=== PATIENT | female | born 1935 | race African-American/Black ===

== ENCOUNTER 2019-06-03 07:32 | Outpatient (RCR) | payer MEDICARE, MEDICAID, SELFPAY ==
--- NOTE | 2019-03-29 08:19 | PCWOUND ---
Patient was seen by Dr. Kc in his office on 03/28/19. measured wound to the right breast. Measurements are 1.5cm in length by 1.0cm in width by 7.0cm
[2019-04-02 14:17] VITALS: BMI 43.4
--- NOTE | 2019-04-22 10:28 | WPDWOUNDNOTE ---
Wound Care Note Date/Time: 04/22/19 10:28 History: Lauren returns to the wound clinic for a recheck after recent right breast lumpectomy with biopsy of 3 non-sentinel lymph nodes and excision of a pedunculated skin lesion right axilla performed on 03/04/19 with pathology showing well-differentiated invasive ductal carcinoma. This is estrogen positive her 2-Nue neg. This was discussed with patient last month and she has recently seen her medical oncologist last week to further discuss more treatment for the carcinoma. For now they are going to hold off on any chemo or radiation which I agree with. The patient developed a hematoma in the space from her lumpectomy following surgery. This opened and drained, therefore we are treating her in the wound clinic. Wound history: Post-operatively patient developed a hematoma in the Rt. axillary area. patient had been on Keflex 500 mg TID, patient reported she is taking this as prescribed. Now has been off of this for some time. Patient reports that she is still sore but not having much pain. Reports her daughter has been packing the wound daily for her, and she reports she is still getting a bloody drainage from incision. But this is significantly less than a week ago. Patient reports she does feel like this is healing because it is not as sore as it was. Wound width: 1.5 cm Wound length: 2 cm Wound depth: 4.5 cm angle toward the Rt. axilla Drainage: Serosanguineous Surrounding tissue appearance: The scar from her previous lumpectomy is well healed in the general vicinity. The skin surrounding the opening to this wound is normal. Tunneling: Yes toward the axilla as noted above. Percentage granulation tissue: 100% Treatment/Procedures: Continue to be packed with Aquacel rope. Will plan to see the patient here in the Wound Clinic in about 4 weeks. Wound clinic nurses will check her in 2 weeks and decide about my next visit. Hopefully will see her when it is just about healed. Dressings: Aquacell rope plus gauze with minimal taped and let her bra hold it in place.
--- NOTE | 2019-05-13 16:38 | WPDWOUNDNOTE ---
Wound Care Note Date/Time: Late entry for 04/02/19 12:38 Late entry for 04/02/19 12:38 History: Lauren returns to the wound clinic for a recheck after recent right breast lumpectomy with biopsy of 3 non-sentinel lymph nodes and excision of a pedunculated skin lesion right axilla performed on 03/04/19 with pathology showing well-differentiated invasive ductal carcinoma. This is estrogen positive Her 2-Nue neg. This was discussed with patient last month and she has recently seen her medical oncologist to further discuss more treatment for the carcinoma. For now they are going to hold off on any chemo or radiation which I agree with as she has an open wound. The patient developed a hematoma in the space from her lumpectomy following surgery. This opened and drained, therefore we are planning on treating her in the wound clinic,possibly with a wound vac. Wound history: Patient had a lumpectomy in mid February. Approximately 1 week after her surgery she had increased swelling and then some bloody drainage from 1 small spot along her the incision of her right-sided lumpectomy which is near the axilla. Subsequently she was seen in the office on 03/28/2019 and a significant amount of old clot and blood was removed from this through approximate 1 cm opening in the incision. I then packed this in the office and placed on antibiotics to try to avoid infected hematoma. She presents at the wound clinic today for consideration of continued dressing changes and possibly a use of a wound VAC to control the drainage and to shrink the wound. Wound approximation: No Wound width: 1.8 cm Wound length: 1.5 cm Wound depth: 7 cm in one direction 4.8 cm in the other direction Drainage: Old blood and clot Surrounding tissue appearance: normal-appearing external skin of the breast Tunneling: yes, into the cavity of the previous lumpectomy. Percentage granulation tissue: Not applicable Treatment/Procedures: Marisela discussed with the patient placement of a wound VAC. Dressings: Patient initally had a wound VAC present but came back to the wound clinic complaining of the equipment, the tubing, and the external pump that needed to be carried. She did not want to continue therapy. Therefore the area was redressed with silver rope and gauze. This will be changed periodically at home by her daughter. She will follow up in the clinic in 1 week for a wound check and then I will see her at the end of the month. The wound care nurses will let me know if it appears that there is any infection or other problem.
== END 2019-06-03 10:15 | disposition home or self-care (01) ==
LOC: ANHWOC 07:32
PROVIDERS: PCP Family Medicine Adolescent Medicine; Visit Provider Surgery
DX: S20.01XD Contusion of right breast, subsequent encounter (principal)
CPT/HCPCS: 97606; 99211; 99212; 99213; A9270; G0463

== ENCOUNTER 2019-11-07 10:26 | Outpatient (CLI) | payer MEDICARE, MEDICAID, SELFPAY ==
[2019-11-07 11:15] LABS: Basophils Percent Auto 0.5 % (0.2-1.2); Eosinophils Absolute Auto 0.2 K/mm3 (0-0.3); Eosinophils Percent Auto 3.3 % (0-4.4); Hematocrit 44.2 % (37.0-47.0); Hemoglobin 14.4 g/dL (12.0-15.0); Immature Granulocyte Absolute 0.02 K/mm3 (0.00-0.031); Immature Granulocyte Percent A 0.3 % (0-0.5); Lymphocytes Absolute Auto 2.45 K/mm3 (0.9-3.2); Mean Corpuscular HGB Conc 32.6 g/dl (32-36); Mean Corpuscular Hemoglobin 28.5 pg (26-34); Mean Corpuscular Volume 87.5 fl (80-100); Mean Platelet Volume 11.1 fl (7.4-10.4); Monocytes Absolute Auto 0.5 K/mm3 (0.1-0.6); Monocytes Percent Auto 7.7 % (2.6-8.5); Neutrophils Absolute Auto 2.7 K/mm3 (1.3-6.7); Neutrophils Percent Auto 46.2 % (45.5-73.1); Platelet Count Result 227 k/mm3 (150-375); Red Blood Count 5.05 M/mm3 (4.2-5.4); Red Cell Distribution Width 14.6 % (11.5-14.5); White Blood Count 5.8 K/mm3 (4.5-10.0)
[2019-11-07 11:27] LABS: Alanine Aminotransferase 13 U/L (4-35); Albumin Level 4.3 g/dL (3.5-5.1); Alkaline Phosphatase 71 U/L (38-126); Aspartate Amino Transferase 21 U/L (14-36); Bilirubin,Total 0.4 mg/dL (0.2-1.3); Blood Urea Nitrogen 16 mg/dL (7-17); Calcium 9.5 mg/dL (8.4-10.2); Carbon Dioxide 29 mmol/L (22-30); Chloride 104 mmol/L (98-107); Estimated Glomerular Filt Rate > 60; Glucose 110 mg/dL (65-105); Sodium 139 mmol/L (137-145)
[2019-11-10 21:19] LABS: CRP, High Sensitivity 3.7 mg/L (***)
[2019-11-11 20:16] LABS: CA 15-3 11 U/mL (<32)
== END 2019-11-07 10:27 | disposition home or self-care (01) ==
PROVIDERS: PCP Family Medicine Adolescent Medicine; Visit Provider Internal Medicine Medical Oncology
DX: C50.411 Malignant neoplasm of upper-outer quadrant of right female breast (principal); Z17.0 Estrogen receptor positive status [ER+]
CPT/HCPCS: 36415; 80053; 85025; 86141; 86300

== ENCOUNTER 2020-02-05 10:59 | Outpatient (CLI) | payer MEDICARE, MEDICAID, SELFPAY ==
[2020-02-05 11:49] LABS: Basophils Absolute Auto 0.1 K/mm3 (0.0-0.1); Basophils Percent Auto 0.7 % (0.2-1.2); Eosinophils Absolute Auto 0.2 K/mm3 (0-0.3); Eosinophils Percent Auto 2.9 % (0-4.4); Hematocrit 44.1 % (37.0-47.0); Hemoglobin 14.3 g/dL (12.0-15.0); Immature Granulocyte Absolute 0.02 K/mm3 (0.00-0.031); Immature Granulocyte Percent A 0.3 % (0-0.5); Lymphocytes Absolute Auto 3.52 K/mm3 (0.9-3.2); Lymphocytes Percent Auto 50.6 % (18.3-44.2); Mean Corpuscular HGB Conc 32.4 g/dl (32-36); Mean Corpuscular Hemoglobin 28.5 pg (26-34); Mean Platelet Volume 11.5 fl (7.4-10.4); Monocytes Absolute Auto 0.5 K/mm3 (0.1-0.6); Monocytes Percent Auto 7.6 % (2.6-8.5); Neutrophils Absolute Auto 2.6 K/mm3 (1.3-6.7); Neutrophils Percent Auto 37.9 % (45.5-73.1); Platelet Count Result 238 k/mm3 (150-375); Red Blood Count 5.01 M/mm3 (4.2-5.4); Red Cell Distribution Width 15.2 % (11.5-14.5)
[2020-02-05 12:01] LABS: Alanine Aminotransferase 11 U/L (4-35); Albumin Level 4.2 g/dL (3.5-5.1); Alkaline Phosphatase 70 U/L (38-126); Anion Gap 6 mmol/L (8-16); Aspartate Amino Transferase 22 U/L (14-36); Bilirubin,Total 0.3 mg/dL (0.2-1.3); Blood Urea Nitrogen 17 mg/dL (7-17); Calcium 9.4 mg/dL (8.4-10.2); Carbon Dioxide 31 mmol/L (22-30); Chloride 105 mmol/L (98-107); Estimated Glomerular Filt Rate > 60; Glucose 104 mg/dL (65-105); Sodium 142 mmol/L (137-145)
[2020-02-05 12:59] LABS: Platelet Estimate Adequate (Adequate); Stomatocytes 1+ (NORMAL); Target Cells 1+ (NORMAL)
== END 2020-02-05 11:00 | disposition home or self-care (01) ==
PROVIDERS: PCP Family Medicine Adolescent Medicine; Visit Provider Internal Medicine Medical Oncology
DX: C50.411 Malignant neoplasm of upper-outer quadrant of right female breast (principal); Z17.0 Estrogen receptor positive status [ER+]
CPT/HCPCS: 36415; 80053; 85025

== ENCOUNTER → 2020-03-26 10:52 | Outpatient (CLI) | payer MEDICARE, MEDICAID, SELFPAY ==
--- NOTE | ~2020-03-26 | XR_ITS ---
EXAMINATION: XR heel RT min 2V, XR foot RT min 3V EXAM DATE: 03/26/2020 11:13 INDICATION: Right heel pain . TECHNIQUE: Right foot dorsoplantar, lateral and oblique projections obtained and reviewed. 2 orthog onal projections right heel. There are no prior studies for comparison. FINDINGS: Right metatarsal bones unremarkable. Small posterior and inferior calcaneal spurs. No evid ence of calcaneal stress fracture. There are no acute fractures or dislocations identified. There is no subcutaneous gas. The soft tissue is unremarkable. There are no radiopaque foreign bodies. IMPRESSION: Small right calcaneal spurs. Reviewed, dictated and finalized at location A. NETWORK TECHNICIAN IMPRESSION: Small right calcaneal spurs.
== END ==
PROVIDERS: PCP Family Medicine Adolescent Medicine; Visit Provider Physician Assistant
DX: M77.31 Calcaneal spur, right foot (principal)
CPT/HCPCS: 73630; 73650

== ENCOUNTER 2020-05-08 14:15 | Outpatient (CLI) | payer MEDICARE, MEDICAID, SELFPAY ==
[2020-05-08 15:01] LABS: Hematocrit 43.3 % (37.0-47.0); Hemoglobin 14.1 g/dL (12.0-15.0); Mean Corpuscular HGB Conc 32.6 g/dl (32-36); Mean Corpuscular Hemoglobin 29.1 pg (26-34); Mean Corpuscular Volume 89.3 fl (80-100); Mean Platelet Volume 10.9 fl (7.4-10.4); Platelet Count Result 213 k/mm3 (150-375); Red Blood Count 4.85 M/mm3 (4.2-5.4); Red Cell Distribution Width 15.2 % (11.5-14.5); White Blood Count 7.2 K/mm3 (4.5-10.0)
[2020-05-08 15:18] LABS: Alanine Aminotransferase 16 U/L (4-35); Alkaline Phosphatase 71 U/L (38-126); Anion Gap 3 mmol/L (8-16); Aspartate Amino Transferase 26 U/L (14-36); Bilirubin,Total 0.4 mg/dL (0.2-1.3); Blood Urea Nitrogen 25 mg/dL (7-17); Calcium 9.2 mg/dL (8.4-10.2); Carbon Dioxide 29 mmol/L (22-30); Chloride 108 mmol/L (98-107); Estimated Glomerular Filt Rate 52; Glucose 98 mg/dL (65-105); Sodium 140 mmol/L (137-145)
[2020-05-08 15:38] LABS: Eosinophils Absolute Manual 0.21 K/mm3 (0.02-0.5); Eosinophils Percent Manual 3 % (0-4); Lymphocytes Absolute Manual 4.24 K/mm3 (1.1-4.5); Monocytes Absolute Manual 0.21 K/mm3 (0.1-0.90); Monocytes Percent Manual 3 % (3-9); Neutrophils Percent Manual 35 % (46-73); Total Cells Counted 100
[2020-05-08 15:39] LABS: Anisocytosis 2+ (NORMAL); Platelet Estimate Adequate (Adequate)
[2020-05-08 15:40] LABS: Atypical Lymphocytes Present
== END 2020-05-08 14:16 | disposition home or self-care (01) ==
PROVIDERS: PCP Family Medicine Adolescent Medicine; Visit Provider Internal Medicine Medical Oncology
DX: C50.411 Malignant neoplasm of upper-outer quadrant of right female breast (principal); Z17.0 Estrogen receptor positive status [ER+]
CPT/HCPCS: 36415; 80053; 85025

== ENCOUNTER 2020-08-07 13:09 | Outpatient (CLI) | payer MEDICARE, MEDICAID, SELFPAY ==
[2020-08-07 13:43] LABS: Hematocrit 41.7 % (37.0-47.0); Hemoglobin 13.6 g/dL (12.0-15.0); Mean Corpuscular HGB Conc 32.6 g/dl (32-36); Mean Corpuscular Hemoglobin 28.6 pg (26-34); Mean Corpuscular Volume 87.8 fl (80-100); Mean Platelet Volume 11.4 fl (7.4-10.4); Platelet Count Result 215 k/mm3 (150-375); Red Blood Count 4.75 M/mm3 (4.2-5.4); Red Cell Distribution Width 15.2 % (11.5-14.5)
[2020-08-07 13:57] LABS: Alanine Aminotransferase 12 U/L (4-35); Albumin Level 4.3 g/dL (3.5-5.1); Alkaline Phosphatase 72 U/L (38-126); Anion Gap 6 mmol/L (8-16); Aspartate Amino Transferase 32 U/L (14-36); Bilirubin,Total 0.4 mg/dL (0.2-1.3); Blood Urea Nitrogen 19 mg/dL (7-17); Calcium 9.2 mg/dL (8.4-10.2); Carbon Dioxide 30 mmol/L (22-30); Chloride 106 mmol/L (98-107); Estimated Glomerular Filt Rate 57; Glucose 99 mg/dL (65-105); Sodium 142 mmol/L (137-145)
[2020-08-07 14:27] LABS: Eosinophils Absolute Manual 0.12 K/mm3 (0.02-0.5); Eosinophils Percent Manual 2 % (0-4); Hypochromasia 2+ (NORMAL); Lymphocytes Absolute Manual 2.88 K/mm3 (1.1-4.5); Monocytes Absolute Manual 0.24 K/mm3 (0.1-0.90); Monocytes Percent Manual 4 % (3-9); Neutrophils Percent Manual 46 % (46-73); Platelet Estimate Adequate (Adequate); Total Cells Counted 100
== END 2020-08-07 13:10 | disposition home or self-care (01) ==
LOC: ANHLAB 13:13
PROVIDERS: PCP Family Medicine Adolescent Medicine; Visit Provider Internal Medicine Medical Oncology
DX: C50.411 Malignant neoplasm of upper-outer quadrant of right female breast (principal); Z17.0 Estrogen receptor positive status [ER+]
CPT/HCPCS: 36415; 80053; 85025

== ENCOUNTER 2020-12-15 10:00 | Outpatient (CLI) | payer MEDICARE, MEDICAID, SELFPAY ==
[2020-12-15 11:08] LABS: Hematocrit 43.5 % (37.0-47.0); Hemoglobin 13.7 g/dL (12.0-15.0); Mean Corpuscular HGB Conc 31.5 g/dl (32-36); Mean Corpuscular Hemoglobin 29.1 pg (26-34); Mean Corpuscular Volume 92.6 fl (80-100); Mean Platelet Volume 11.4 fl (7.4-10.4); Platelet Count Result 185 k/mm3 (150-375); Red Cell Distribution Width 15.2 % (11.5-14.5); White Blood Count 7.4 K/mm3 (4.5-10.0)
[2020-12-15 11:22] LABS: Alanine Aminotransferase 14 U/L (4-35); Albumin Level 4.2 g/dL (3.5-5.1); Alkaline Phosphatase 82 U/L (38-126); Anion Gap 11 mmol/L (8-16); Aspartate Amino Transferase 26 U/L (14-36); Bilirubin,Total 0.3 mg/dL (0.2-1.3); Blood Urea Nitrogen 25 mg/dL (7-17); Calcium 8.9 mg/dL (8.4-10.2); Carbon Dioxide 21 mmol/L (22-30); Chloride 104 mmol/L (98-107); Estimated Glomerular Filt Rate 57; Glucose 94 mg/dL (65-110); Potassium 4.2 mmol/L (3.4-5.0); Sodium 136 mmol/L (137-145)
[2020-12-15 11:43] LABS: Eosinophils Absolute Manual 0.07 K/mm3 (0.02-0.5); Eosinophils Percent Manual 1 % (0-4); Lymphocytes Absolute Manual 3.62 K/mm3 (1.1-4.5); Neutrophils Percent Manual 50 % (46-73); Total Cells Counted 100
[2020-12-15 11:44] LABS: Platelet Estimate Adequate (Adequate)
== END 2020-12-15 10:01 | disposition home or self-care (01) ==
PROVIDERS: PCP Family Medicine Adolescent Medicine; Visit Provider Internal Medicine Medical Oncology
DX: C50.411 Malignant neoplasm of upper-outer quadrant of right female breast (principal); Z17.0 Estrogen receptor positive status [ER+]
CPT/HCPCS: 36415; 80053; 85025

== ENCOUNTER 2021-03-29 14:04 | Outpatient (CLI) | payer MEDICARE, MEDICAID, SELFPAY ==
[2021-03-29 14:30] LABS: Basophils Absolute Auto 0.1 K/mm3 (0.0-0.1); Basophils Percent Auto 0.7 % (0.2-1.2); Eosinophils Absolute Auto 0.3 K/mm3 (0-0.3); Eosinophils Percent Auto 3.6 % (0-4.4); Hematocrit 41.5 % (37.0-47.0); Hemoglobin 13.6 g/dL (12.0-15.0); Immature Granulocyte Absolute 0.03 K/mm3 (0.00-0.031); Immature Granulocyte Percent A 0.4 % (0-0.5); Lymphocytes Absolute Auto 3.21 K/mm3 (0.9-3.2); Lymphocytes Percent Auto 38.7 % (18.3-44.2); Mean Corpuscular HGB Conc 32.8 g/dl (32-36); Mean Corpuscular Hemoglobin 29.4 pg (26-34); Mean Corpuscular Volume 89.6 fl (80-100); Monocytes Absolute Auto 0.8 K/mm3 (0.1-0.6); Neutrophils Absolute Auto 3.9 K/mm3 (1.3-6.7); Neutrophils Percent Auto 47.6 % (45.5-73.1); Platelet Count Result 206 k/mm3 (150-375); Red Blood Count 4.63 M/mm3 (4.2-5.4); White Blood Count 8.3 K/mm3 (4.5-10.0)
[2021-03-29 14:43] LABS: Alanine Aminotransferase 15 U/L (4-35); Albumin Level 4.2 g/dL (3.5-5.1); Alkaline Phosphatase 88 U/L (38-126); Anion Gap 8 mmol/L (8-16); Aspartate Amino Transferase 25 U/L (14-36); Bilirubin,Total 0.4 mg/dL (0.2-1.3); Blood Urea Nitrogen 32 mg/dL (7-17); Carbon Dioxide 28 mmol/L (22-30); Chloride 105 mmol/L (98-107); Estimated Glomerular Filt Rate 40; Glucose 122 mg/dL (65-110); Potassium 3.9 mmol/L (3.4-5.0); Sodium 141 mmol/L (137-145)
== END 2021-03-29 14:05 | disposition home or self-care (01) ==
PROVIDERS: PCP Family Medicine Adolescent Medicine; Visit Provider Internal Medicine Medical Oncology
DX: C50.411 Malignant neoplasm of upper-outer quadrant of right female breast (principal); Z17.0 Estrogen receptor positive status [ER+]
CPT/HCPCS: 36415; 80053; 85025

== ENCOUNTER 2021-08-25 14:07 | Outpatient (CLI) | payer MEDICARE, MEDICAID, SELFPAY ==
[2021-08-25 14:36] LABS: Hematocrit 43.2 % (37.0-47.0); Hemoglobin 13.8 g/dL (12.0-15.0); Mean Corpuscular HGB Conc 31.9 g/dl (32-36); Mean Corpuscular Hemoglobin 28.6 pg (26-34); Mean Corpuscular Volume 89.6 fl (80-100); Mean Platelet Volume 10.8 fl (7.4-10.4); Platelet Count Result 268 k/mm3 (150-375); Red Blood Count 4.82 M/mm3 (4.2-5.4); Red Cell Distribution Width 14.6 % (11.5-14.5); White Blood Count 7.3 K/mm3 (4.5-10.0)
[2021-08-25 14:46] LABS: Alanine Aminotransferase 12 U/L (4-35); Albumin Level 4.1 g/dL (3.5-5.1); Alkaline Phosphatase 72 U/L (38-126); Anion Gap 3 mmol/L (8-16); Aspartate Amino Transferase 23 U/L (14-36); Bilirubin,Total 0.2 mg/dL (0.2-1.3); Blood Urea Nitrogen 32 mg/dL (7-17); Calcium 9.4 mg/dL (8.4-10.2); Carbon Dioxide 33 mmol/L (22-30); Chloride 103 mmol/L (98-107); Estimated Glomerular Filt Rate 47; Glucose 98 mg/dL (65-110); Potassium 3.7 mmol/L (3.4-5.0); Sodium 139 mmol/L (137-145)
[2021-08-25 15:13] LABS: Eosinophils Absolute Manual 0.14 K/mm3 (0.02-0.5); Eosinophils Percent Manual 2 % (0-4); Lymphocytes Absolute Manual 3.65 K/mm3 (1.1-4.5); Monocytes Absolute Manual 0.21 K/mm3 (0.1-0.90); Monocytes Percent Manual 3 % (3-9); Neutrophils Percent Manual 45 % (46-73); Total Cells Counted 100
[2021-08-25 15:14] LABS: Hypochromasia 1+ (NORMAL); Platelet Estimate Adequate (Adequate)
== END 2021-08-25 14:08 | disposition home or self-care (01) ==
LOC: ANHLAB 14:08
PROVIDERS: PCP Family Medicine Adolescent Medicine; Visit Provider Internal Medicine Medical Oncology
DX: C50.411 Malignant neoplasm of upper-outer quadrant of right female breast (principal); Z17.0 Estrogen receptor positive status [ER+]
CPT/HCPCS: 36415; 80053; 85025

== ENCOUNTER 2021-12-14 12:45 | Outpatient (CLI) | payer MEDICARE, MEDICAID, SELFPAY ==
[2021-12-14 13:19] LABS: Basophils Percent Auto 0.7 % (0.2-1.2); Eosinophils Absolute Auto 0.2 K/mm3 (0-0.3); Eosinophils Percent Auto 3.3 % (0-4.4); Hematocrit 41.1 % (37.0-47.0); Hemoglobin 13.4 g/dL (12.0-15.0); Immature Granulocyte Absolute 0.03 K/mm3 (0.00-0.031); Immature Granulocyte Percent A 0.5 % (0-0.5); Lymphocytes Absolute Auto 3.07 K/mm3 (0.9-3.2); Lymphocytes Percent Auto 55.5 % (18.3-44.2); Mean Corpuscular HGB Conc 32.6 g/dl (32-36); Mean Corpuscular Hemoglobin 28.6 pg (26-34); Mean Corpuscular Volume 87.8 fl (80-100); Mean Platelet Volume 10.6 fl (7.4-10.4); Monocytes Absolute Auto 0.5 K/mm3 (0.1-0.6); Monocytes Percent Auto 8.3 % (2.6-8.5); Neutrophils Absolute Auto 1.8 K/mm3 (1.3-6.7); Neutrophils Percent Auto 31.7 % (45.5-73.1); Platelet Count Result 237 k/mm3 (150-375); Red Blood Count 4.68 M/mm3 (4.2-5.4); Red Cell Distribution Width 14.6 % (11.5-14.5); White Blood Count 5.5 K/mm3 (4.5-10.0)
[2021-12-14 13:36] LABS: Alanine Aminotransferase 15 U/L (6-35); Albumin Level 4.3 g/dL (3.5-5.1); Alkaline Phosphatase 62 U/L (38-126); Anion Gap 8 mmol/L (8-16); Aspartate Amino Transferase 25 U/L (14-36); Bilirubin,Total 0.4 mg/dL (0.2-1.3); Blood Urea Nitrogen 25 mg/dL (7-17); Calcium 8.9 mg/dL (8.4-10.2); Carbon Dioxide 29 mmol/L (22-30); Chloride 101 mmol/L (98-107); Estimated Glomerular Filt Rate 47; Glucose 95 mg/dL (65-110); Potassium 3.6 mmol/L (3.4-5.0); Sodium 138 mmol/L (137-145)
[2021-12-14 14:53] LABS: Atypical Lymphocytes Present; Platelet Estimate Adequate (Adequate)
== END 2021-12-14 12:46 | disposition home or self-care (01) ==
PROVIDERS: PCP Family Medicine Adolescent Medicine; Visit Provider Internal Medicine Medical Oncology
DX: C50.411 Malignant neoplasm of upper-outer quadrant of right female breast (principal); Z17.0 Estrogen receptor positive status [ER+]
CPT/HCPCS: 36415; 80053; 85025

== ENCOUNTER 2022-03-29 13:55 | Outpatient (CLI) | payer MEDICARE, MEDICAID, SELFPAY ==
[2022-03-29 14:43] LABS: Basophils Percent Auto 0.6 % (0.2-1.2); Eosinophils Absolute Auto 0.2 K/mm3 (0-0.3); Eosinophils Percent Auto 2.2 % (0-4.4); Hematocrit 36.8 % (37.0-47.0); Hemoglobin 12.2 g/dL (12.0-15.0); Immature Granulocyte Absolute 0.03 K/mm3 (0.00-0.031); Immature Granulocyte Percent A 0.4 % (0-0.5); Lymphocytes Absolute Auto 3.08 K/mm3 (0.9-3.2); Lymphocytes Percent Auto 45.5 % (18.3-44.2); Mean Corpuscular HGB Conc 33.2 g/dl (32-36); Mean Corpuscular Hemoglobin 28.9 pg (26-34); Mean Corpuscular Volume 87.2 fl (80-100); Monocytes Absolute Auto 0.6 K/mm3 (0.1-0.6); Monocytes Percent Auto 8.1 % (2.6-8.5); Neutrophils Absolute Auto 2.9 K/mm3 (1.3-6.7); Neutrophils Percent Auto 43.2 % (45.5-73.1); Platelet Count Result 219 k/mm3 (150-375); Red Blood Count 4.22 M/mm3 (4.2-5.4); Red Cell Distribution Width 15.1 % (11.5-14.5); White Blood Count 6.8 K/mm3 (4.5-10.0)
[2022-03-29 14:49] LABS: Alanine Aminotransferase 13 U/L (6-35); Albumin Level 4.2 g/dL (3.5-5.1); Alkaline Phosphatase 63 U/L (38-126); Anion Gap 5 mmol/L (8-16); Aspartate Amino Transferase 21 U/L (14-36); Bilirubin,Total 0.3 mg/dL (0.2-1.3); Blood Urea Nitrogen 22 mg/dL (7-17); Calcium 8.6 mg/dL (8.4-10.2); Carbon Dioxide 26 mmol/L (22-30); Chloride 112 mmol/L (98-107); Estimated Glomerular Filt Rate 47; Glucose 107 mg/dL (65-110); Potassium 3.9 mmol/L (3.4-5.0); Sodium 143 mmol/L (137-145)
[2022-03-29 14:57] LABS: Platelet Estimate Adequate (Adequate)
[2022-03-29 14:58] LABS: Atypical Lymphocytes Present; Schistocytes None Seen (NORMAL)
== END 2022-03-29 13:56 | disposition home or self-care (01) ==
LOC: ANHLAB 13:58
PROVIDERS: PCP Family Medicine Adolescent Medicine; Visit Provider Internal Medicine Medical Oncology
DX: C50.411 Malignant neoplasm of upper-outer quadrant of right female breast (principal); Z17.0 Estrogen receptor positive status [ER+]
CPT/HCPCS: 36415; 80053; 85025

== ENCOUNTER 2022-06-30 11:23 | Outpatient (CLI) | payer MEDICARE, MEDICAID, SELFPAY ==
[2022-06-30 12:38] LABS: Basophils Percent Auto 0.7 % (0.2-1.2); Eosinophils Absolute Auto 0.2 K/mm3 (0-0.3); Hematocrit 39.6 % (37.0-47.0); Immature Granulocyte Absolute 0.01 K/mm3 (0.00-0.031); Immature Granulocyte Percent A 0.2 % (0-0.5); Lymphocytes Absolute Auto 2.85 K/mm3 (0.9-3.2); Lymphocytes Percent Auto 49.6 % (18.3-44.2); Mean Corpuscular HGB Conc 32.8 g/dl (32-36); Mean Corpuscular Hemoglobin 29.5 pg (26-34); Mean Corpuscular Volume 89.8 fl (80-100); Mean Platelet Volume 11.6 fl (7.4-10.4); Monocytes Absolute Auto 0.5 K/mm3 (0.1-0.6); Monocytes Percent Auto 9.2 % (2.6-8.5); Neutrophils Absolute Auto 2.2 K/mm3 (1.3-6.7); Neutrophils Percent Auto 37.3 % (45.5-73.1); Platelet Count Result 204 k/mm3 (150-375); Red Blood Count 4.41 M/mm3 (4.2-5.4); Red Cell Distribution Width 14.6 % (11.5-14.5); White Blood Count 5.8 K/mm3 (4.5-10.0)
[2022-06-30 13:00] LABS: Alanine Aminotransferase 14 U/L (6-35); Albumin Level 4.4 g/dL (3.5-5.1); Alkaline Phosphatase 68 U/L (38-126); Anion Gap 7 mmol/L (8-16); Aspartate Amino Transferase 27 U/L (14-36); Bilirubin,Total 0.5 mg/dL (0.2-1.3); Blood Urea Nitrogen 24 mg/dL (7-17); Calcium 9.5 mg/dL (8.4-10.2); Carbon Dioxide 27 mmol/L (22-30); Chloride 104 mmol/L (98-107); Estimated Glomerular Filt Rate 47; Glucose 94 mg/dL (65-110); Potassium 3.9 mmol/L (3.4-5.0); Sodium 138 mmol/L (137-145)
[2022-06-30 13:44] LABS: Platelet Estimate Adequate (Adequate)
[2022-06-30 13:45] LABS: Schistocytes None Seen (NORMAL)
== END 2022-06-30 11:24 | disposition home or self-care (01) ==
PROVIDERS: PCP Family Medicine Adolescent Medicine; Visit Provider Internal Medicine Medical Oncology
DX: C50.411 Malignant neoplasm of upper-outer quadrant of right female breast (principal); Z17.0 Estrogen receptor positive status [ER+]
CPT/HCPCS: 36415; 80053; 85025

== ENCOUNTER 2022-11-30 14:12 | Outpatient (CLI) | payer MEDICARE, MEDICAID, SELFPAY ==
[2022-11-30 15:13] LABS: Basophils Percent Auto 0.6 % (0.2-1.2); Eosinophils Absolute Auto 0.1 K/mm3 (0-0.3); Hematocrit 39.3 % (37.0-47.0); Hemoglobin 12.8 g/dL (12.0-15.0); Immature Granulocyte Absolute 0.02 K/mm3 (0.00-0.031); Immature Granulocyte Percent A 0.3 % (0-0.5); Lymphocytes Absolute Auto 3.13 K/mm3 (0.9-3.2); Mean Corpuscular HGB Conc 32.6 g/dl (32-36); Mean Corpuscular Hemoglobin 29.2 pg (26-34); Mean Corpuscular Volume 89.7 fl (80-100); Mean Platelet Volume 11.1 fl (7.4-10.4); Monocytes Absolute Auto 0.6 K/mm3 (0.1-0.6); Monocytes Percent Auto 8.2 % (2.6-8.5); Neutrophils Absolute Auto 3.1 K/mm3 (1.3-6.7); Neutrophils Percent Auto 43.9 % (45.5-73.1); Platelet Count Result 213 k/mm3 (150-375); Red Blood Count 4.38 M/mm3 (4.2-5.4); Red Cell Distribution Width 14.3 % (11.5-14.5)
[2022-11-30 15:15] LABS: Potassium 3.7 mmol/L (3.4-5.0)
[2022-11-30 15:17] LABS: Alanine Aminotransferase 15 U/L (6-35); Albumin Level 4.3 g/dL (3.5-5.1); Alkaline Phosphatase 57 U/L (38-126); Anion Gap 7 mmol/L (8-16); Aspartate Amino Transferase 22 U/L (14-36); Bilirubin,Total 0.3 mg/dL (0.2-1.3); Blood Urea Nitrogen 39 mg/dL (7-17); Calcium 9.3 mg/dL (8.4-10.2); Carbon Dioxide 27 mmol/L (22-30); Chloride 102 mmol/L (98-107); Estimated Glomerular Filt Rate 47; Glucose 90 mg/dL (65-110); Sodium 136 mmol/L (137-145)
== END 2022-11-30 14:13 | disposition home or self-care (01) ==
PROVIDERS: PCP Family Medicine Adolescent Medicine; Visit Provider Internal Medicine Medical Oncology
DX: C50.411 Malignant neoplasm of upper-outer quadrant of right female breast (principal); Z17.0 Estrogen receptor positive status [ER+]
CPT/HCPCS: 36415; 80053; 85025

== ENCOUNTER 2023-02-27 11:10 | Outpatient (CLI) | payer MEDICARE, MEDICAID, SELFPAY ==
[2023-02-27 11:49] LABS: Basophils Absolute Auto 0.1 K/mm3 (0.0-0.1); Basophils Percent Auto 0.8 % (0.2-1.2); Eosinophils Absolute Auto 0.1 K/mm3 (0-0.3); Hematocrit 40.5 % (37.0-47.0); Hemoglobin 13.1 g/dL (12.0-15.0); Immature Granulocyte Absolute 0.01 K/mm3 (0.00-0.031); Immature Granulocyte Percent A 0.2 % (0-0.5); Mean Corpuscular HGB Conc 32.3 g/dl (32-36); Mean Corpuscular Hemoglobin 28.7 pg (26-34); Mean Corpuscular Volume 88.8 fl (80-100); Mean Platelet Volume 11.3 fl (7.4-10.4); Monocytes Absolute Auto 0.5 K/mm3 (0.1-0.6); Monocytes Percent Auto 8.9 % (2.6-8.5); Neutrophils Absolute Auto 2.3 K/mm3 (1.3-6.7); Neutrophils Percent Auto 37.1 % (45.5-73.1); Platelet Count Result 241 k/mm3 (150-375); Red Blood Count 4.56 M/mm3 (4.2-5.4); Red Cell Distribution Width 14.5 % (11.5-14.5); White Blood Count 6.1 K/mm3 (4.5-10.0)
[2023-02-27 12:00] LABS: Alanine Aminotransferase 13 U/L (6-35); Albumin Level 4.3 g/dL (3.5-5.1); Alkaline Phosphatase 65 U/L (38-126); Anion Gap 6 mmol/L (8-16); Aspartate Amino Transferase 23 U/L (14-36); Bilirubin,Total 0.8 mg/dL (0.2-1.3); Blood Urea Nitrogen 28 mg/dL (7-17); Calcium 9.9 mg/dL (8.4-10.2); Carbon Dioxide 31 mmol/L (22-30); Chloride 102 mmol/L (98-107); Estimated Glomerular Filt Rate 47; Glucose 99 mg/dL (65-110); Potassium 3.7 mmol/L (3.4-5.0); Sodium 139 mmol/L (137-145)
[2023-02-27 12:32] LABS: Platelet Estimate Adequate (Adequate)
[2023-02-27 12:33] LABS: Anisocytosis 2+ (NORMAL); Atypical Lymphocytes Present; Schistocytes None Seen (NORMAL)
== END 2023-02-27 11:11 | disposition home or self-care (01) ==
PROVIDERS: PCP Family Medicine Adolescent Medicine; Visit Provider Internal Medicine Medical Oncology
DX: C50.411 Malignant neoplasm of upper-outer quadrant of right female breast (principal); Z17.0 Estrogen receptor positive status [ER+]
CPT/HCPCS: 36415; 80053; 85025

== ENCOUNTER 2023-05-30 12:12 | Outpatient (CLI) | payer MEDICARE, MEDICAID, SELFPAY ==
[2023-05-30 13:31] LABS: Basophils Absolute Auto 0.1 K/mm3 (0.0-0.1); Basophils Percent Auto 0.8 % (0.2-1.2); Eosinophils Absolute Auto 0.2 K/mm3 (0-0.3); Eosinophils Percent Auto 3.5 % (0-4.4); Hematocrit 39.1 % (37.0-47.0); Hemoglobin 12.7 g/dL (12.0-15.0); Immature Granulocyte Absolute 0.01 K/mm3 (0.00-0.031); Immature Granulocyte Percent A 0.2 % (0-0.5); Lymphocytes Absolute Auto 2.86 K/mm3 (0.9-3.2); Lymphocytes Percent Auto 47.5 % (18.3-44.2); Mean Corpuscular HGB Conc 32.5 g/dl (32-36); Mean Corpuscular Hemoglobin 28.6 pg (26-34); Mean Corpuscular Volume 88.1 fl (80-100); Mean Platelet Volume 11.6 fl (7.4-10.4); Monocytes Absolute Auto 0.5 K/mm3 (0.1-0.6); Monocytes Percent Auto 8.3 % (2.6-8.5); Neutrophils Absolute Auto 2.4 K/mm3 (1.3-6.7); Neutrophils Percent Auto 39.7 % (45.5-73.1); Platelet Count Result 239 k/mm3 (150-375); Red Blood Count 4.44 M/mm3 (4.2-5.4); Red Cell Distribution Width 14.6 % (11.5-14.5)
[2023-05-30 13:45] LABS: Alanine Aminotransferase 11 U/L (6-35); Albumin Level 4.5 g/dL (3.5-5.1); Alkaline Phosphatase 71 U/L (38-126); Anion Gap 7 mmol/L (8-16); Aspartate Amino Transferase 25 U/L (14-36); Bilirubin,Total 0.5 mg/dL (0.2-1.3); Blood Urea Nitrogen 28 mg/dL (7-17); Calcium 9.9 mg/dL (8.4-10.2); Carbon Dioxide 27 mmol/L (22-30); Chloride 106 mmol/L (98-107); Estimated Glomerular Filt Rate 32; Glucose 99 mg/dL (65-110); Potassium 4.1 mmol/L (3.4-5.0); Sodium 140 mmol/L (137-145)
== END 2023-05-30 12:13 | disposition home or self-care (01) ==
PROVIDERS: PCP Family Medicine Adolescent Medicine; Visit Provider Internal Medicine Medical Oncology
DX: C50.411 Malignant neoplasm of upper-outer quadrant of right female breast (principal); Z17.0 Estrogen receptor positive status [ER+]
CPT/HCPCS: 36415; 80053; 85025

== ENCOUNTER 2023-08-30 14:41 | Outpatient (CLI) | payer MEDICARE, MEDICAID, SELFPAY ==
[2023-08-30 15:03] LABS: Hematocrit 39.6 % (37.0-47.0); Hemoglobin 12.9 g/dL (12.0-15.0); Mean Corpuscular HGB Conc 32.6 g/dl (32-36); Mean Platelet Volume 10.7 fl (7.4-10.4); Platelet Count Result 227 k/mm3 (150-375); Red Blood Count 4.45 M/mm3 (4.2-5.4)
[2023-08-30 15:14] LABS: Alanine Aminotransferase 13 U/L (6-35); Albumin Level 4.5 g/dL (3.5-5.1); Alkaline Phosphatase 69 U/L (38-126); Anion Gap 7 mmol/L (4-12); Aspartate Amino Transferase 22 U/L (14-36); Bilirubin,Total 0.4 mg/dL (0.2-1.3); Blood Urea Nitrogen 33 mg/dL (7-17); Calcium 9.8 mg/dL (8.4-10.2); Carbon Dioxide 27 mmol/L (22-30); Chloride 105 mmol/L (98-107); Estimated Glomerular Filt Rate 37; Glucose 100 mg/dL (65-110); Potassium 3.8 mmol/L (3.4-5.0); Sodium 139 mmol/L (137-145)
[2023-08-30 17:47] LABS: Atypical Lymphocytes Present; Eosinophils Absolute Manual 0.28 K/mm3 (0.02-0.50); Eosinophils Percent Manual 4 % (0-4); Lymphocytes Absolute Manual 3.57 K/mm3 (1.1-4.5); Monocytes Absolute Manual 0.56 K/mm3 (0.1-0.90); Monocytes Percent Manual 8 % (3-9); Neutrophils Percent Manual 37 % (46-73); Platelet Estimate Adequate (Adequate); Total Cells Counted 100
[2023-08-30 17:48] LABS: Anisocytosis 2+; Schistocytes None Seen
== END 2023-08-30 14:42 | disposition home or self-care (01) ==
LOC: ANHLAB 14:43
PROVIDERS: PCP Family Medicine Adolescent Medicine; Visit Provider Internal Medicine Medical Oncology
DX: C50.411 Malignant neoplasm of upper-outer quadrant of right female breast (principal); Z17.0 Estrogen receptor positive status [ER+]
CPT/HCPCS: 36415; 80053; 85025

== ENCOUNTER 2023-11-28 11:44 | Outpatient (CLI) | payer MEDICARE, MEDICAID, SELFPAY ==
[2023-11-28 12:17] LABS: Basophils Percent Auto 0.5 % (0.2-1.2); Eosinophils Absolute Auto 0.1 K/mm3 (0-0.3); Hemoglobin 13.4 g/dL (12.0-15.0); Immature Granulocyte Absolute 0.02 K/mm3 (0.00-0.031); Immature Granulocyte Percent A 0.3 % (0-0.5); Lymphocytes Absolute Auto 2.56 K/mm3 (0.9-3.2); Lymphocytes Percent Auto 39.4 % (18.3-44.2); Mean Corpuscular HGB Conc 32.7 g/dl (32-36); Mean Corpuscular Hemoglobin 29.6 pg (26-34); Mean Corpuscular Volume 90.5 fl (80-100); Mean Platelet Volume 10.7 fl (7.4-10.4); Monocytes Absolute Auto 0.6 K/mm3 (0.1-0.6); Monocytes Percent Auto 9.4 % (2.6-8.5); Neutrophils Absolute Auto 3.1 K/mm3 (1.3-6.7); Neutrophils Percent Auto 48.4 % (45.5-73.1); Platelet Count Result 239 k/mm3 (150-375); Red Blood Count 4.53 M/mm3 (4.2-5.4); Red Cell Distribution Width 15.4 % (11.5-14.5); White Blood Count 6.5 K/mm3 (4.5-10.0)
[2023-11-28 12:31] LABS: Alanine Aminotransferase 10 U/L (6-35); Albumin Level 4.3 g/dL (3.5-5.1); Alkaline Phosphatase 63 U/L (38-126); Anion Gap 8 mmol/L (4-12); Aspartate Amino Transferase 20 U/L (14-36); Bilirubin,Total 0.5 mg/dL (0.2-1.3); Blood Urea Nitrogen 22 mg/dL (7-17); Calcium 9.2 mg/dL (8.4-10.2); Carbon Dioxide 28 mmol/L (22-30); Chloride 105 mmol/L (98-107); Estimated Glomerular Filt Rate 40; Glucose 96 mg/dL (65-110); Potassium 4.2 mmol/L (3.4-5.0); Sodium 141 mmol/L (137-145)
== END 2023-11-28 11:45 | disposition home or self-care (01) ==
LOC: ANHLAB 11:54
PROVIDERS: PCP Family Medicine Adolescent Medicine; Visit Provider Internal Medicine Medical Oncology
DX: C50.411 Malignant neoplasm of upper-outer quadrant of right female breast (principal); Z17.0 Estrogen receptor positive status [ER+]
CPT/HCPCS: 36415; 80053; 85025

== ENCOUNTER 2024-02-28 12:14 | Outpatient (CLI) | payer MEDICARE, MEDICAID, SELFPAY ==
[2024-02-28 13:13] LABS: Basophils Percent Auto 0.5 % (0.2-1.2); Eosinophils Absolute Auto 0.1 K/mm3 (0-0.3); Eosinophils Percent Auto 1.6 % (0-4.4); Hematocrit 40.7 % (37.0-47.0); Hemoglobin 13.3 g/dL (12.0-15.0); Immature Granulocyte Absolute 0.02 K/mm3 (0.00-0.031); Immature Granulocyte Percent A 0.2 % (0-0.5); Lymphocytes Absolute Auto 1.98 K/mm3 (0.9-3.2); Lymphocytes Percent Auto 24.5 % (18.3-44.2); Mean Corpuscular HGB Conc 32.7 g/dl (32-36); Mean Corpuscular Hemoglobin 29.1 pg (26-34); Mean Corpuscular Volume 89.1 fl (80-100); Mean Platelet Volume 9.9 fl (7.4-10.4); Monocytes Absolute Auto 0.6 K/mm3 (0.1-0.6); Monocytes Percent Auto 7.5 % (2.6-8.5); Neutrophils Absolute Auto 5.3 K/mm3 (1.3-6.7); Neutrophils Percent Auto 65.7 % (45.5-73.1); Platelet Count Result 269 k/mm3 (150-375); Red Blood Count 4.57 M/mm3 (4.2-5.4); Red Cell Distribution Width 13.2 % (11.5-14.5); White Blood Count 8.1 K/mm3 (4.5-10.0)
== END 2024-02-28 12:15 | disposition home or self-care (01) ==
PROVIDERS: PCP Family Medicine Adolescent Medicine; Visit Provider Internal Medicine Medical Oncology
DX: C50.411 Malignant neoplasm of upper-outer quadrant of right female breast (principal); Z17.0 Estrogen receptor positive status [ER+]
CPT/HCPCS: 36415; 85025

== ENCOUNTER 2024-06-24 07:10 | Outpatient (CLI) | payer MEDICARE, MEDICAID, SELFPAY | END 2024-06-24 07:11 | disposition home or self-care (01) | LOC: ANHIMG 07:15 | PROVIDERS: PCP Family Medicine Adolescent Medicine; Visit Provider Internal Medicine Medical Oncology | DX: R91.8 Other nonspecific abnormal finding of lung field (principal); C50.919 Malignant neoplasm of unspecified site of unspecified female breast | CPT/HCPCS: 71250 ==

== ENCOUNTER 2024-07-11 11:44 | Outpatient (CLI) | payer MEDICARE, MEDICAID, SELFPAY ==
--- NOTE | ~2024-07-11 | PE_ITS ---
EXAMINATION: PET skull to mid thigh DATE: 07/11/2024 14:56 INDICATION: Right breast cancer TECHNIQUE: Blood glucose level was 94 mg/dL. 10.998 mCi of 18-fluorodeoxyglucose (18-FDG) was adminis tered i.v. Low dose computed tomography (CT) images were acquired from the base of the brain to the p roximal thighs for attenuation correction and anatomic localization. Positron emission tomography (PE T) images were acquired in the same distribution beginning 57 minutes after injection. Images includi ng fused PET/CT images were reconstructed in axial, coronal, and sagittal planes. Automated exposure control technique was employed. The dose-length product was 952.97mGy-cm. COMPARISON: Chest CT dated 06/24/2024 FINDINGS: Head/neck: There is symmetric increased activity in the oral cavity, palatine tonsils, laryngeal muscles and ocu lar muscles without CT correlate, likely physiologic. There is mild FDG uptake associated with a smal l fluid-filled diverticulum extending anteriorly from the left side of the esophagus level of the tho racic inlet. No pathologically enlarged cervical lymphadenopathy or suspicious foci of increased FDG uptake in the visualized head or neck. Chest: Prominent increased FDG uptake with maximal SUV of 11.8 associated with a 4.6 x 4.0 cm mass at the ju nction of the left upper lobe and lingula. Adjacent small residual mild focal pleural thickening rashid g the anterolateral periphery of the lingula with tiny focus of increased FDG uptake with maximal SUV of 5.3. There are several additional scattered pulmonary nodules, couple the largest with mild FDG a ctivity. These include an 8 mm left lower lobe nodule with maximal SUV of 3.0, and an 8 mm left upper lobe nodule with maximal SUV of 1.65. There are also 5 small nodules in the right lung, the largest measuring 5-6 mm the superior segment of the right lower lobe, in the posterior segment right upper l obe and in the right middle lobe and without discernible FDG uptake. Small posterior layering left pl eural effusion. Mild cardiomegaly. Atherosclerotic coronary artery calcific location. No pericardial effusion. Thoracic aorta is normal in caliber. No pathologically enlarged or FDG avid thoracic lympha denopathy. 1.3 cm nodular soft tissue density at the lateral right breast with mild FDG activity with maximal SUV of 1.6. Abdomen/pelvis/proximal thighs: Physiologic renal accumulation and excretion of FDG activity in the kidneys, bladder and along portio ns of ureters. There are nonobstructing stones at lower pole calyces of both kidneys measuring 1 cm o n the left and 7 mm on the right. There are photopenic defects associated with prominent bilateral re nal cysts the largest on the right measuring 4.6 cm. Normal degree and heterogenous pattern of increa sed uptake throughout the liver without radiologic correlate or dominant FDG avid lesion. There is pr ominent focal wall thickening at a fold of the medial wall of the gallbladder with the combined soft tissue density of the fold upon itself wall measuring approximately 2.8 x 2.0 cm. There is correspond ing prominent increased FDG uptake with maximal SUV of 11.9 which is concerning for gallbladder cance r. The pancreas, spleen and bilateral adrenal glands are normal. Mild uptake scattered throughout the bowels without radiologic correlate, also likely physiologic. Extensive colonic diverticulosis witho ut adjacent comparison to suggest diverticulitis. There is prominent gaseous distention of a loop of the sigmoid colon. No bowel obstruction. Portions of the pelvis including the bladder obscured by den se metallic streak artifact from bilateral total hip arthroplasties. The uterus is not identified and has likely been surgically resected. There are couple small bilateral fat-containing infraumbilical ventral hernias. There are focal small regions of moderate increased FDG uptake situated between the anterior head of the pancreas and the liver with maximal SUV of 9.1 and in the portacaval region with maximal SUV of 4.2 which is suspicious for metastatic lymph nodes which are difficult to distinguish from the adjacent vasculature and pancreas on noncontrast imaging. No other abnormal foci of increas ed FDG uptake or pathologically enlarged lymphadenopathy in the abdomen, pelvis or proximal thighs. Musculoskeletal: Mild to moderate cervical and severe thoracic and lumbar spondylosis. No suspicious lytic, blastic or abnormally FDG avid bone lesions. IMPRESSION: 1. Moderate FDG uptake associated with a 4.6 x 4.0 cm mass at the junction of the left upper lobe and lingula which is concerning for primary bronchogenic carcinoma. Consider percutaneous CT-guided biop sy. 2. A few scattered bilateral subcentimeter pulmonary nodules smooth margins and the 2 largest with mi ld associated FDG uptake which along with a tiny focus of mild FDG uptake is small region of focal pl eural thickening at the periphery of the lingula are suspicious for metastatic disease. 3. Nonspecific minimal uptake associated with 1.3 cm soft tissue density nodule at the lateral right breast. Correlate with prior mammography and/or breast ultrasound with repeat imaging as clinically i ndicated. 4. Region of FDG avid prominent focal wall thickening along the gallbladder with associated embedded software architect ural distortion which is suspicious for gallbladder cancer. 5. A couple small regions of prominent increased FDG uptake in the right upper quadrant which are maxine picious for metastatic periportal/portocaval lymph nodes but which are difficult to distinguish from the pancreas and adjacent vasculature on noncontrast imaging. Consider further evaluation of both the se lesions as well as the gallbladder wall thickening with pre and postcontrast CT or MRI. Reviewed, dictated and finalized at location A. IMPRESSION: 1. Moderate FDG uptake associated with a 4.6 x 4.0 cm mass at the junction of t he left upper lobe and lingula which is concerning for primary bronchogenic car cinoma. Consider percutaneous CT-guided biopsy. 2. A few scattered bilateral subcentimeter pulmonary nodules smooth margins and the 2 largest with mild associated FDG uptake which along with a tiny focus of mild FDG uptake is small region of focal pleural thickening at the periphery o f the lingula are suspicious for metastatic disease. 3. Nonspecific minimal uptake associated with 1.3 cm soft tissue density nodule at the lateral right breast. Correlate with prior mammography and/or breast ul trasound with repeat imaging as clinically indicated. 4. Region of FDG avid prominent focal wall thickening along the gallbladder wit h associated architectural distortion which is suspicious for gallbladder cance r. 5. A couple small regions of prominent increased FDG uptake in the right upper quadrant which are suspicious for metastatic periportal/portocaval lymph nodes but which are difficult to distinguish from the pancreas and adjacent vasculatu re on noncontrast imaging. Consider further evaluation of both these lesions as well as the gallbladder wall thickening with pre and postcontrast CT or MRI.
[2024-07-11 12:15] LABS: Glucose Point of Care 94 mg/dl (65-105)
--- OUTSIDE RECORDS SUMMARY | 2024-07-11 12:35 | XMS_ITS | CONTINUITY OF CARE DOCUMENT ---
Author Name francis blanco Address Unknown Organization [facility] Address [address] [place] [address] Phone [phone] Care Team Providers Care Life Skills Worker Name Role Phone Imer Greene MD Unavailable KRIS RIGGINS MD Unavailable [phone] KRIS RIGGINS MD Unavailable [phone] INSURANCE PROVIDERS Payer name Policy type / Coverage type [place] [employer] party ID [employer] [place] PPO Commercial insurance co [facility] [id number] [facility] Medicaid 1 [id number]
--- OUTSIDE RECORDS SUMMARY | 2024-07-11 12:35 | XMS_ITS | Data Portability ---
Author Organization [place] - [facility], Main Office Address [address] [place] [address] Care Team Providers Care Director Of Quality Control Name Role Phone REMEDIOS MELGOZA Primary Care Provider REMEDIOS MELGOZA Referring Provider Assessment Encounter Date Assessment Date Assessment LastModified by Organization Details LastModified Time 07/20/2022 07/20/2022 87-year-old female presenting for follow-up status post ORIF for the right distal radius. Overall she is doing well. She has been working physical therapy. She has had significant improvement in her motion and strength in her hand. Swelling is gone significantly down. She is very happy with her progress so far. Incisions well healed. She has no focal tenderness palpation. She is able to make a closed fist. Neurovascular intact throughout. X-rays of the right wrist were obtained reviewed, demonstrating hardware in place with maintenance of alignment Overall doing well, continue progressing with therapy on the wrist, and we discussed that she can continue doing everyday activities to build up strength and function the hand. Will have follow-up as needed. Not available 07/29/2022 09:07:46 09/14/2022 09/14/2022 87-year-old female presenting for follow-up of her right distal radius fracture, status post ORIF 04/28/2022. Overall she is feeling better. She has been working with PT. Her wrist is doing well, but she complains of some areas of swelling on her forearm. No tenderness palpation of the distal radius. Incisions well healed. She has area of swelling over the distal ulna and also in the mid part of her forearm. This feels like a soft tissue swelling without bony involvement. She is able to flex extend her fingers without difficulty. X-rays of the wrist and forearm were obtained reviewed, demonstrating postsurgical change of the hardware in place intact, maintenance of alignment. There appears to be only soft tissue swelling over the area was where she has the bumps. She should continue working on her home exercises on wrist mobility and function. We discussed that her areas of swelling are unlikely to be related to her distal radius fracture. She reports no resting or nighttime pain, and no fluctuation in size. She should keep an eye on that and notify us if she does start developing those or other concerning symptoms. Follow-up in 8 weeks. Not available 09/14/2022 17:57:16 11/30/2022 11/30/2022 87-year-old female presenting for follow-up of her right distal radius fracture, status post ORIF 04/28/2022. Overall she is feeling better. She has been working with PT. Her wrist is doing well, but she complains of some areas of swelling on her forearm. No tenderness palpation of the right distal radius. Incisions well healed. No swelling. She is able to flex extend her fingers without difficulty. Triggering present in the left index and middle fingers. Pain with palpitation over tendon. She should continue working on her home exercises on wrist mobility and function. She is not interested in cortisone injections for her trigger fingers. She can continue to take anti inflammatories for any discomfort. She can call us if she changes her mind or any new issues arise. [email or web address] Not available 11/30/2022 15:24:42 02/28/2023 02/28/2023 88-year-old female presents for follow-up of her left hand middle and ring trigger finger. She also has a history of a right distal radius fracture which is not bothering her. She previously had a cortisone injection into the ring finger trigger, which did give her some improvement. However the triggering is beginning to come back and is is more severe in the middle finger. Physical exam: She has tenderness palpation of the A1 [place] of the middle and ring fingers. She does have locking and triggering on exam today. Pain with full extension. She has sensation intact to light touch, brisk cap refill, 2+ radial pulse. With regards her right wrist, her incision is well healed. She has no tenderness palpation, neurovascular intact. X-rays of the hand were obtained reviewed, demonstrating no acute bony abnormality besides some degenerative changes For her middle and ring trigger fingers, we discussed treatment options include continued conservative management with stretching and anti-inflammatori es, cortisone injection, for which we would do her middle finger because she has previously had a ring finger injection, or surgical release. She wants to try the middle finger cortisone injection. She tolerated it well. We discussed that if she continues have symptoms, the next option would be to do a surgical release. She stated understanding. Follow up as needed. Not available 02/28/2023 23:00:26 Plan of Treatment Reminders Order Date Submit Date Provider Last Modified By Organization Details Last Modified Time Details Appointments None recorded. Lab None recorded. Referral None recorded. Procedures injection/a spiration joint/bursa (PROC) - in office procedure, administere d by provider 2022 023 [email or web address] 3 In-Office Order, Internal Use Only DO Not Attach Compendium DO Not Attach Compendium, Do Not Delete/merge, [id number] 11:27:59 Surgeries None recorded. Imaging XR, hand 2022 023 [facility] [place], [address], [place], [address], 09:06:06 XR, wrist 2022 023 [facility] [place], [address], [place], [address], 12:13:48 Medication Orders ropivacaine (PF) 5 mg/mL (0.5 %) injection solution 2022 023 Not available 09:06:06 triamcinolo ne acetonide 40 mg/mL suspension for injection 2022 023 Not available 09:06:06 Patient TargetsNo targets recorded. Patient InstructionsNo instructions recorded. Reason for Referral None Reported. Results Created Date Observation Date Name Description Value Unit Range Abnormal Flag Note LastModifiedBy Organization Detail LastModifiedTime 05/11/19 23 05/11/2022 XR, wrist , 3 or more view No observ ation record ed. [id number] [facility] [place] [address], [place], [address], 06/22/2022 12:52:38 05/20/19 23 05/20/2022 XR, wrist , 3 or more view No observ ation record ed. [id number] [facility] [place] [address], [place], [address], 06/22/2022 12:52:38 06/10/19 23 06/14/2022 XR, wrist , 3 or more view No observ ation record ed. [id number] [facility] [place] [address], [place], [address], 06/22/2022 12:52:38 07/21/19 23 XR, wrist No observ ation record ed. [facility] [place] [address], [place], [address], 07/29/2022 09:07:18 02/29/20 23 XR, hand No observ ation record ed. [email or web address] [facility] [place] [address], [place], [address], 02/28/2023 10:08:37 Result Notes None recorded. Problems Name Problem SNOMED Code Status Onset Date Resolution Date Notes Provider Name and Address Organization Details Recorded Time Closed fracture of distal end of radius 95774731 Active 2021 Not Available [facility] 3 12:48:41 Radiothera py follow-up 953458810 Active Not Available [facility] 3 12:48:41 Morbid obesity 720760315 Active Not Available [facility] 3 12:48:41 Osteoarthr itis of hip 903970593 Active Not Available [facility] 3 12:48:41 Current tear of medial cartilage AND/OR meniscus of knee Active Not Available [facility] 3 12:48:41 Knee pain Active Not Available [facility] 3 12:48:41 Osteoarthr itis 680972215 Active Not Available [facility] 3 12:48:41 Hip pain 65783812 Active Not Available [facility] 3 12:48:41 Derangemen t of knee 95022692 Active Not Available [facility] 3 12:48:41 Pain of left hand 5551457434483 03 Active 2022 NOHEMY Casas, [facility] 3 10:08:30 Problem Notes None recorded. Procedures Surgical History Date Name Laterality Status Provider Name and Address Organization Details Recorded Time 3 Ortho - Cortisone Injection completed Doe Archer MD [address] [place] [address], [address], [facility] 03/13/2023 17:44:25 Imaging Results Imaging Date Name Status [facility]Modified by [facility] Details LastModified Time 05/11/2022 XR, wrist, 3 or more view completed [id number] [facility] [place] [address], [place], [address], 06/22/2022 12:52:38 05/20/2022 XR, wrist, 3 or more view completed [id number] [facility] [place] [address], [place], [address], 06/22/2022 12:52:38 06/14/2022 XR, wrist, 3 or more view completed [id number] [facility] [place] [address], [place], [address], 06/22/2022 12:52:38 07/20/2022 XR, wrist completed [facility] [place] [address], [place], [address], 07/29/2022 09:07:18 02/28/2023 XR, hand completed [email or web address] [facility] [place] [address], [place], [address], 02/28/2023 10:08:37 Procedure Notes None recorded. Medical Equipment None Reported. Medications Name Sig Start Date Stop Date Status Note LastModified by Organization Details LastModified Time celecoxib 200 mg capsule Take 1 capsule every day by oral route. active Not Available Not Available No t Available cyclobenzap rine 10 mg tablet TK 1 T PO Q 6 H PRN 01/14 completed Not Available Not Available Not Available amoxicillin 500 mg capsule 01/14 completed Not Available Not Available Not Available fluconazole 100 mg tablet 01/14 completed Not Available Not Available Not Available anastrozole 1 mg tablet 01/14 completed Not Available Not Available Not Available doxycycline hyclate 100 mg capsule TAKE 1 CAPSULE BY MOUTH TWICE DAILY active Not Available Not Available No t Available azithromyci n 250 mg tablet 01/14 completed Not Available Not Available Not Available tramadol 37.5 mg-acetamin ophen 325 mg tablet 01/14 completed Not Available Not Available Not Available fluconazole 150 mg tablet TAKE 1 TABLET BY MOUTH IN 3 DAYS, AND ANOTHER TABLET AT THE END OF ANTIBIOTI C COURSE. 02/27 completed Not Available Not Available Not Available hydrocodone 5 mg-acetamin ophen 325 mg tablet TK 1 T PO QID PRN 02/27 completed Not Available Not Available Not Available prednisone 20 mg tablet 01/14 completed Not Available Not Available Not Available alendronate 70 mg tablet TAKE 1 TABLET BY MOUTH ONCE A WEEK active Not Available Not Available No t Available amlodipine 2.5 mg tablet 01/14 completed Not Available Not Available Not Available sulfamethox azole 800 mg-trimetho prim 160 mg tablet 01/14 completed Not Available Not Available Not Available tramadol 50 mg tablet 01/14 completed Not Available Not Available Not Available oxycodone-a cetaminophe n 5 mg-325 mg tablet 01/14 completed Not Available Not Available Not Available exemestane 25 mg tablet TK 1 T PO D UTD FOR BREAST CANCER 01/14 completed Not Available Not Available Not Available DOK 100 mg capsule TK 1 C PO BID NEEDED 01/14 completed Not Available Not Available Not Available Kenalog 10 mg/mL suspension for injection In office injection administe red by the provider 11/28 completed [facility]: 0003- 0494- 20 Not Available Not Available Not Available triamcinolo ne acetonide 40 mg/mL suspension for injection in office 2022 active Not Available Not Available Not Avai lable hydrocodone 7.5 mg-acetamin ophen 325 mg tablet TAKE 1 TABLET BY MOUTH 4 TIMES DAILY NEEDED FOR PAIN active Not Available Not Available No t Available nystatin 100,000 unit/gram topical cream 01/14 completed Not Available Not Available Not Available lidocaine 5 % topical patch 01/14 completed Not Available Not Available Not Available polymyxin B sulfate 10,000 unit-trimet hoprim 1 mg/mL eye drops 01/14 completed Not Available Not Available Not Available diclofenac sodium 75 mg tablet,david yed release TAKE 1 TABLET BY MOUTH TWICE DAILY 11/28 completed Not Available Not Available Not Available hydrochloro thiazide 25 mg tablet TAKE 1 TABLET BY MOUTH ONCE DAILY active Not Available Not Available No t Available letrozole 2.5 mg tablet TAKE 1 TABLET BY MOUTH ONCE DAILY active Not Available Not Available No t Available albuterol sulfate HFA 90 mcg/actuati on aerosol inhaler INHALE 2 PUFFS BY MOUTH TWICE DAILY NEEDED FOR SHORTNESS OF BREATH active Not Available Not Available No t Available hydrocodone 7.5 mg-acetamin ophen 500 mg tablet 01/14 completed Not Available Not Available Not Available losartan 100 mg tablet TAKE 1 TABLET BY MOUTH ONCE DAILY active Not Available Not Available No t Available clotrimazol e 1 % topical cream APPLY CREAM TOPICALLY TWICE DAILY FOR RASH UNDER BREAST active Not Available Not Available No t Available amoxicillin 875 mg-potassiu m clavulanate 125 mg tablet 01/14 completed Not Available Not Available Not Available Spiriva with HandiHaler 18 mcg and inhalation capsules 01/14 completed Not Available Not Available Not Available cholecalcif sandee (vitamin D3) 50 mcg (2,000 unit) tablet TAKE 1 TABLET BY MOUTH ONCE DAILY active Not Available Not Available No t Available ProChamber 01/14 completed Not Available Not Available Not Available Dulera 100 mcg-5 mcg/actuati on HFA aerosol inhaler 01/14 completed Not Available Not Available Not Available Vitamin D3 50 mcg (2,000 unit) capsule TK 1 C PO D FOR LOW VITAMIN LEVEL. 01/14 completed Not Available Not Available Not Available Xarelto 10 mg tablet 01/14 completed Not Available Not Available Not Available ropivacaine (PF) 5 mg/mL (0.5 %) injection solution in office 2022 active [facility] [id number] -[phone] Not Available Not Available Not Available Vitals Date Recorded Body mass index (BMI) Body height Body weight Provider Name and Address Organization Details Last Updated DateTime 06/10/2022 38.4 kg/m2 149.86 cm 61114.55 g Not Available [facility] 06/22/2022 12:46:42 Date Recorded Body height Body mass index (BMI) Body weight Provider Name and Address Organization Details Last Updated DateTime 07/20/2022 149.86 cm 41.8 kg/m2 42671.62 g [employer] 07/20/2022 11:47:27 Date Recorded Body height Body mass index (BMI) Body weight Provider Name and Address Organization Details Last Updated DateTime 09/14/2022 149.86 cm 39.8 kg/m2 61889.7 g [employer] 09/14/2022 11:18:41 Date Recorded Body height Body mass index (BMI) Body weight Provider Name and Address Organization Details Last Updated DateTime 11/30/2022 149.86 cm 41.8 kg/m2 26498.62 g [employer] 11/30/2022 14:48:04 Date Recorded Body height Body mass index (BMI) Body weight Provider Name and Address Organization Details Last Updated DateTime 02/28/2023 149.86 cm 41.6 kg/m2 25951.03 g [employer] 02/28/2023 10:07:55 Social History Question Answer Notes LastModified by Organizat ion Details LastModified Time Tobacco Smoking Status Former Smoker Not Available [facility] 06/22/2022 12:46:01 What Is Your Level Of Alcohol Consumption? None [id number] Information not available 06/22/2022 When Did You Quit Smoking? 1-5yearssinc elastcigaret te [id number] 26 Information not available 06/22/2022 Sex: Unknown Functional Status None recorded. Mental Status None recorded. Family History Relationship Description Onset Age of this Age Resolved Age Notes LastModified by Organization Details LastModified Time Mother Family history of malignant neoplasm [id number] Not available 06/22/2022 12:46:28 Mother Hypertensive disorder [id number] Not available 06/22/2022 12:46:28 Medical History Condition Response ARTHRITIS Y CANCER: SPECIFY Y HYPERTENSION Y Gynecological HistoryNo gynecological history recorded. Obstetrics History GPAL:G 0 P 0 0 0 0 Past Encounters Encounter ID Performer Location Encounter Start Date Encounter Closed Date Diagnosis/Indication Diagnosis SNOMED-CT Code Diagnosis ICD10 Code Diagnosis Note [id number] [facility] [place] [address] [place] [address] 04/22/2022 00:00:00 04/22/2022 13:57:00 [id number] [facility] [place] [address] [place] [address] 05/04/2022 00:00:00 05/04/2022 12:49:52 [id number] [facility] [place] [address] [place] [address] 05/11/2022 00:00:00 05/11/2022 11:14:56 [id number] [facility] [place] [address] [place] [address] 05/20/2022 00:00:00 05/23/2022 09:45:41 [id number] [facility] [place] [address] [place] [address] 06/10/2022 00:00:00 06/10/2022 14:24:14 [id number] Deo Archer MD [facility] [place] [address] [place] [address] 07/20/2022 11:44:58 07/20/2022 12:02:58 Closed fracture of distal end of radius 24633133 S52.502A [id number] Doe Archer MD [facility] [place] [address] [place] [address] 09/14/2022 11:13:40 09/14/2022 11:45:34 Closed fracture of distal end of radius 19164880 S52.502A [id number] Allie Ulloa NP [facility] [place] [address] [place] [address] 11/30/2022 14:45:23 11/30/2022 14:59:44 Closed fracture of distal end of radius 20560082 S52.501D [id number] Doe Archer MD [facility] [place] [address] [place] [address] 02/28/2023 10:03:21 02/28/2023 11:43:15 Pain of left hand 3234566183 84213 M79.642 Health Concerns Section Related Observation LastModified by Organization Detai ls LastModified Time None Recorded Concern Status LastModified by Organization Details LastModified Time None Recorded Advance Directives Directive None Recorded Payers Encounter Date Sequence Insurance Name Policy Number Policy Raines Covered Member ID Raines Member ID Guarantor Name 07/20/2022 1 [employer] (MEDICARE REPLACEMENT PPO) [id number] Lauren Martinez [id number] Lauren Martinez 07/20/2022 2 [place] [employer] [place] Lauren Martinez [id number] Lauren Martinez 09/14/2022 1 [employer] [place]MED[place]AC[place] [id number] Lauren Martinez [id number] Lauren Martinez 09/14/2022 2 [place] Lauren Martinez [id number] Lauren Martinez 11/30/2022 1 [employer] (MEDICARE REPLACEMENT PPO) [id number] Lauren Martinez [id number] Lauren Martinez 11/30/2022 2 [place] Lauren Martinez [id number] Lauren Martinez 02/28/2023 1 [employer] (MEDICARE REPLACEMENT PPO) [id number] Lauren Martinez [id number] Lauren Martinez 02/28/2023 2 [place] Lauren Martinez [id number] Lauren Martinez OBGyn Episode No OBEpisode recorded.
== END 2024-07-11 11:45 | disposition home or self-care (01) ==
PROVIDERS: PCP Family Medicine Adolescent Medicine; Visit Provider Internal Medicine Medical Oncology
DX: C50.411 Malignant neoplasm of upper-outer quadrant of right female breast (principal); Z17.0 Estrogen receptor positive status [ER+]; R91.8 Other nonspecific abnormal finding of lung field
CPT/HCPCS: 78815; A9552

== ENCOUNTER 2024-08-01 05:36 | Outpatient (CLI) | payer MEDICARE, SELFPAY ==
[2024-07-23 15:51] VITALS: BMI 36.0
--- NOTE | 2024-07-23 15:52 | PC.NURSE ---
Pre Radiology instructions Report to the outpatient jessica georges on date ___08/01/24 __ at time __0900am for procedure Time: 1100am____ YOU MAY BE MONITORED AT HOSPITAL FOR UP TO 4 HOURS AFTER YOUR PROCEDURE. A visitor will be allowed to accompany the patient into the hospital. You and your visitor will be asked to self-screen and do not enter if you have any COVID symptoms. A mask is OPTIONAL within the hospital. Patients are to have no food or drink 6 hours prior to procedure time Driving will be restricted after the procedure, you must have a person to drive you home. Labs will be drawn in preop area and once reviewed, you will be taken to radiology area for procedure. When the procedure is completed, you will be taken to outpatient where you will be monitored for several hours. You may have one visitor in this area. Other than holding anti-coagulants, patient may take other medication(s) as scheduled. Prior to your appointment date patients are instructed to hold anti-coagulants after discussing with ordering provider to stop. If unable to discontinue anti-coagulants please notify radiologist. ? No aspirin or warfarin (Coumadin) for 7 days prior to the procedure. ? No clopidogrel (Plavix), ticagrelor (Brilinta), prasugrel (Effient) or dabigatran (Pradaxa) for 5 days prior to the procedure. ? No rivaroxaban (Xarelto), apixaban (Eliquis), dipyridamole (Aggrenox or Persantine) or cilostazol (Pletal) for 2 days prior to the procedure. Medications to discontinue per physician: __None Date to take last dose: _None Please leave all valuables, including medications, at home the day of procedure. The hospital will not accept responsibility for valuables. Wear comfortable, loose fitting clothing.? Follow any additional instructions given to you from ordering provider. Telephone instructions given to __Patient and asked if any additional questions and then verbalized understanding. Patient advised to call scheduling provider office or registration scheduling [phone] if any additional questions.
[2024-08-01] VITALS (8 sets, daily range): BP systolic 117–135; BP diastolic 65–90; PULSE 65–76; RESP 14–16; TEMP 37; O2SAT 94–100
--- NOTE | ~2024-08-01 | CT_ITS ---
Procedure: CT guided biopsy of left lung mass. Indication: 89 years old Female with LEFT LUNG MASS . Operating Physician: Marcial Nix MD. Consent: After a detailed discussion of the procedure, risks, benefits, and alternative treatment opt ions, informed consent was obtained from the patient. Time Out: A time out for the procedure was performed in the presence of Dr. Nix. The patient's iden tification was verified. Informed consent with agreement of procedure was reviewed. All necessary equ ipment was available prior to procedure. Complications: None. Anesthesia: Local. Moderate conscious sedation was given for 30 minutes under my personal supervision with monitoring of the patient's vitals by a trained observed for the procedure.. Medication: 1% lidocaine locally. Procedure: Survey CT images were obtained. Left chest was prepped and draped using usual sterile fash ion. All elements of maximal sterile barrier technique were followed including cap, mask, sterile canelo n, large sterile barrier, and hand hygiene. 2% chlorhexidine cutaneous antisepsis was also used. Local anesthesia was administered. The lesion was accessed using a 19 gauge needle and multiple core biopsy specimens were obtained using 20 gauge core biopsy device. All obtained samples were sent to Pathology. The needle was removed and hemostasis was achieved using a blood patch and manual pressure . Sterile dressing was applied. Patient tolerated the procedure. The entire procedure was personally performed by Dr. Nix. Findings: CT images again show large left pulmonary mass embroidered access with placement of the bio psy needle. No immediate postprocedure complications are seen. Impression: Successful CT guided biopsy of left pulmonary mass. Reviewed, dictated and finalized at location A. Impression: Successful CT guided biopsy of left pulmonary mass.
--- NOTE | ~2024-08-01 | XR_ITS ---
XR chest 1V portable 08/01/2024 14:39 Indication: Post left lung biopsy Procedure: AP portable chest Comparison: 08/01/2024 Findings: Cardiomegaly. There is a mass in the left mid thorax, consistent with malignancy until prov en otherwise. There are bilateral axillary surgical clips. Right lung clear. There is right paratrach eal soft tissue, likely vascular ectasia. No pneumothorax identified. No significant effusion. Impression: 1: No pneumothorax identified post biopsy. Reviewed, dictated and finalized at location A. Impression: 1: No pneumothorax identified post biopsy.
--- NOTE | ~2024-08-01 | XR_ITS ---
Portable chest x-ray Comparison: 04/01/2013 Clinical History: Postbiopsy Findings: 4.7 cm left midlung mass present. No pneumothorax evident. Possible minimal pleural effusi ons. Cardiomediastinal silhouette is stable. Bones and soft tissues are unremarkable. Impression: No pneumothorax. 4.7 cm left midlung mass. Follow-up with biopsy results. Possible minimal pleural effusions. Reviewed, dictated and finalized at location . Impression: No pneumothorax. 4.7 cm left midlung mass. Follow-up with biopsy results. Possible minimal pleural effusions.
--- NOTE | ~2024-08-01 | XR_ITS ---
EXAM/PROCEDURE: XR chest 1V portable - 08/01/2024 15:35 CDT HISTORY: 89 years old Female with 3 HOUR POST LT LUNG BX TECHNIQUE: AP view(s) of the chest. COMPARISON: 08/01/2024 FINDINGS: LUNGS/ PLEURA: Large left lung mass is again seen. Multiple additional bilateral airspace opacities. No pneumothorax post lung biopsy. HEART/ MEDIASTINUM: Heart appears normal in size. BONES: Degenerative changes. OTHER: Visualized upper abdomen is unremarkable. Surgical clips in both axilla and neck. IMPRESSION: No pneumothorax post lung biopsy. Reviewed, dictated and finalized at location A.
--- OUTSIDE RECORDS SUMMARY | 2024-08-01 05:39 | XMS_ITS | CONTINUITY OF CARE DOCUMENT ---
Author Name francis blanco Address Unknown Organization [facility] Address [address] [place] [address] Phone [phone] Care Team Providers Care Flask Cleaner Name Role Phone Imer Greene MD Unavailable [phone] KRIS RIGGINS MD Unavailable [phone] KRIS RIGGINS MD Unavailable [phone] INSURANCE PROVIDERS Payer name Policy type / Coverage type [place] red green party ID [employer]NA MEDICARE [place] PPO Commercial insurance co [facility] [id number] [facility] Medicaid 1 [id number]
--- OUTSIDE RECORDS SUMMARY | 2024-08-01 05:40 | XMS_ITS | Data Portability ---
Author Organization [place] - [facility], Main Office Address [address] [place] [address] Care Team Providers Care Stroke Program Coordinator Name Role Phone REMEDIOS MELGOZA Primary Care Provider REMEDIOS MELGOZA Referring Provider [phone] Assessment Encounter Date Assessment Date Assessment LastModified [...] DO Not Attach Compendium, Do Not Delete/merge, [id number] 11:27:59 Surgeries None recorded. Imaging XR, hand 2022 023 [facility] [place], [address], [place], [address], 09:06:06 XR, wrist 2022 023 [facility] [place], [address], [place], [address], 12:13:48 Medication Orders ropivacaine (PF) 5 mg/mL [...] more view No observ ation record ed. [id number] [facility] [place] [address], [place], [address], 06/22/2022 12:52:38 05/20/19 23 05/20/2022 XR, wrist , 3 or more view No observ ation record ed. [id number] [facility] [place] [address], [place], [address], 06/22/2022 12:52:38 06/10/19 23 06/14/2022 XR, wrist , 3 or more view No observ ation record ed. [id number] [facility] [place] [address], [place], [address], 06/22/2022 12:52:38 07/21/19 23 XR, wrist No observ ation record ed. [facility] [place] [address], [place], [address], 07/29/2022 09:07:18 02/29/20 23 XR, hand No observ ation record ed. [email or web address] [facility] [place] [address], [place], [address], 02/28/2023 10:08:37 Result Notes None recorded. Problems Name Problem SNOMED Code Status Onset Date Resolution Date Notes Provider Name and Address Organization Details Recorded Time Closed fracture of distal end of radius 73271226 Active 2021 Not Available [facility] 3 12:48:41 Radiothera py follow-up 966654712 Active Not Available [facility] 3 12:48:41 Morbid obesity 282144211 Active Not Available [facility] 3 12:48:41 Osteoarthr itis of hip 182209722 Active Not Available [facility] 3 12:48:41 Current tear of medial cartilage AND/OR meniscus of knee Active Not Available [facility] 3 12:48:41 Knee pain Active Not Available [facility] 3 12:48:41 Osteoarthr itis 850308235 Active Not Available [facility] 3 12:48:41 Hip pain 97102798 Active Not Available [facility] 3 12:48:41 Derangemen t of knee 23169237 Active Not Available [facility] 3 12:48:41 Pain of left hand 2208568902112 03 Active 2022 NOHEMY Casas, [employer] 3 10:08:30 Problem Notes None recorded. Procedures Surgical History Date Name Laterality Status Provider Name and Address Organization Details Recorded Time 3 Ortho - Cortisone Injection completed Doe Archer MD [address] [place] [address], [address], [employer] 03/13/2023 17:44:25 Imaging Results Imaging Date Name Status LastModified by Organiz [facility] Details LastModified Time 05/11/2022 XR, wrist, 3 or more view completed [id number] [facility] [place] [address], [place], [address], 06/22/2022 12:52:38 05/20/2022 XR, wrist, 3 or more view completed [id number] [facility] [place] [address], [place], [address], 06/22/2022 12:52:38 06/14/2022 XR, wrist, 3 or more view completed [id number] [facility] [place] [address], [place], [address], 06/22/2022 12:52:38 07/20/2022 XR, wrist completed [facility] [place] [address], [place], [address], 07/29/2022 09:07:18 02/28/2023 XR, hand completed [email or web address] [facility] [place] [address], [place], [address], 02/28/2023 10:08:37 Procedure Notes None recorded. Medical [...] administe red by the provider 11/28 completed [facility]: 0003- 0494- 20 Not Available Not Available [...] %) injection solution in office 2022 active [facility] [id number] -[phone] Not Available Not Available Not Available Vitals Date Recorded Body mass index (BMI) Body height Body weight Provider Name and Address Organization Details Last Updated DateTime 06/10/2022 38.4 kg/m2 149.86 cm 53539.55 g Not Available [facility] 06/22/2022 12:46:42 Date Recorded Body height Body mass index (BMI) Body weight Provider Name and Address Organization Details Last Updated DateTime 07/20/2022 149.86 cm 41.8 kg/m2 17748.62 g [facility] 07/20/2022 11:47:27 Date Recorded Body height Body mass index (BMI) Body weight Provider Name and Address Organization Details Last Updated DateTime 09/14/2022 149.86 cm 39.8 kg/m2 54099.7 g [facility] 09/14/2022 11:18:41 Date Recorded Body height Body mass index (BMI) Body weight Provider Name and Address Organization Details Last Updated DateTime 11/30/2022 149.86 cm 41.8 kg/m2 72282.62 g [facility] 11/30/2022 14:48:04 Date Recorded Body height Body mass index (BMI) Body weight Provider Name and Address Organization Details Last Updated DateTime 02/28/2023 149.86 cm 41.6 kg/m2 54089.03 g [facility] 02/28/2023 10:07:55 Social History Question Answer Notes LastModified by Organizat ion Details LastModified Time Tobacco Smoking Status Former Smoker Not Available [facility] 06/22/2022 12:46:01 What Is Your Level Of Alcohol Consumption? None [id number] Information not available 06/22/2022 When Did You Quit Smoking? 1-5yearssinc elastcigaret te [id number] 26 Information not available 06/22/2022 Sex: Unknown Functional Status None recorded. Mental Status None recorded. Family History Relationship Description Onset Age of this Age Resolved Age Notes LastModified by Organization Details LastModified Time Mother Family history of malignant neoplasm [id number] Not available 06/22/2022 12:46:28 Mother Hypertensive disorder [id number] Not available 06/22/2022 12:46:28 Medical History Condition Response ARTHRITIS Y HYPERTENSION Y CANCER: SPECIFY Y Gynecological HistoryNo gynecological history recorded. Obstetrics History GPAL:G 0 P 0 0 0 0 Past Encounters Encounter ID Performer Location Encounter Start Date Encounter Closed Date Diagnosis/Indication Diagnosis SNOMED-CT Code Diagnosis ICD10 Code Diagnosis Note [id number] [facility] [place] [address] [place] [address] 04/22/2022 00:00:00 04/22/2022 13:57:00 [id number] [facility] [place] [address] [place] [address] 05/04/2022 00:00:00 05/04/2022 12:49:52 [id number] [facility] [place] [address] [place] [address] 05/11/2022 00:00:00 05/11/2022 11:14:56 [id number] [facility] [place] [address] [place] [address] 05/20/2022 00:00:00 05/23/2022 09:45:41 [id number] [facility] [place] [address] [place] [address] 06/10/2022 00:00:00 06/10/2022 14:24:14 [id number] Doe Archer MD [facility] [place] [address] [place] [address] 07/20/2022 11:44:58 07/20/2022 12:02:58 Closed fracture of distal end of radius 04551063 S52.502A [id number] Doe Archer MD [facility] [place] [address] [place] [address] 09/14/2022 11:13:40 09/14/2022 11:45:34 Closed fracture of distal end of radius 08530650 S52.502A [id number] Allie Ulloa NP [facility] [place] [address] [place] [address] 11/30/2022 14:45:23 11/30/2022 14:59:44 Closed fracture of distal end of radius 94591742 S52.501D [id number] Doe Archer MD [facility] [place] [address] [place] [address] 02/28/2023 10:03:21 02/28/2023 11:43:15 Pain of left hand 8461291393 05633 M79.642 Health Concerns Section Related Observation LastModified by Organization Detai ls LastModified Time None Recorded Concern Status LastModified by Organization Details LastModified Time None Recorded Advance Directives Directive None Recorded Payers Encounter Date Sequence Insurance Name Policy Number Policy Raines Covered Member ID Raines Member ID Guarantor Name 07/20/2022 1 [employer] (MEDICARE REPLACEMENT PPO) [id number] Lauren Martinez [id number] Lauren Martinez 07/20/2022 2 [place] Lauren Martinez [id number] Lauren Martinez 09/14/2022 1 [employer]ET[employer] (MEDICARE REPLACEMENT PPO) [id number] Lauren Martinez [id number] Lauren Martinez 09/14/2022 2 [place] Lauren Martinez [id number] Lauren Martinez 11/30/2022 1 [employer]ETNA (MEDICARE REPLACEMENT PPO) [id number] Lauren Martinez [id number] Lauren Martinez 11/30/2022 2 [place] Lauren Martinez [id number] Lauren Martinez 02/28/2023 1 AETNA (MEDICARE REPLACEMENT PPO) [id number] Lauren Martinez [id number] Lauren Martinez 02/28/2023 2 [place] Lauren Martinez [id number] Lauren Martinez OBGyn Episode No OBEpisode recorded.
[2024-08-01 10:47] LABS: Mean Platelet Volume 10.6 fl (7.4-10.4); Platelet Count Result 193 k/mm3 (150-375)
[2024-08-01 11:55] LABS: INR 1.1; Prothrombin Time 14.3 Seconds (11.1-14.7)
== END 2024-08-01 16:36 | disposition home or self-care (01) ==
PROVIDERS: PCP Family Medicine Adolescent Medicine; Referring Provider Internal Medicine Medical Oncology; Visit Provider Radiology Diagnostic Radiology
PROC: BB4BZZZ Ultrasonography of Pleura (ICD-10-PCS; CPT 76942; principal; 2024-08-01 11:00)
DX: C34.12 Malignant neoplasm of upper lobe, left bronchus or lung (principal); R91.8 Other nonspecific abnormal finding of lung field
CPT/HCPCS: 32408; 36415; 71045; 85049; 85610; 88305; 88342

== ENCOUNTER 2024-09-27 10:10 | Emergency (ER) | payer MEDICARE, SELFPAY ==
[2024-09-27] VITALS (9 sets, daily range): BP systolic 130–136; BP diastolic 78–96; PULSE 79–92; RESP 18–24; TEMP 36.6; O2SAT 92–100
--- NOTE | ~2024-09-27 | XR_ITS ---
XR chest 2V 09/27/2024 11:07 Indication: Shortness of breath. History of breast cancer. Procedure: PA and lateral views the chest Comparison: Comparison to multiple prior studies sequentially, with oldest reviewed study dated 12/2012. Findings: Moderate left pleural effusion. Mass reidentified left mid thorax, partially obscured by ef fusion. Right basilar atelectasis. No pneumothorax. Impression: 1: Left midthoracic mass, compatible with bronchogenic carcinoma until proven otherwise. 2: Moderate left pleural effusion. 3: Right basilar atelectasis. Reviewed, dictated and finalized at location A. Impression: 1: Left midthoracic mass, compatible with bronchogenic carcinoma until proven o therwise. 2: Moderate left pleural effusion. 3: Right basilar atelectasis.
--- OUTSIDE RECORDS SUMMARY | 2024-09-27 10:16 | XMS_ITS | CONTINUITY OF CARE DOCUMENT ---
Author Name francis blanco Address Unknown Organization [facility] Address [address] [place] [address] Phone [phone] Care Team Providers Care Shade Cloth Finisher Name Role Phone Imer Greene MD Unavailable KRIS RIGGINS MD Unavailable [phone] KRIS RIGGINS MD Unavailable [phone] INSURANCE PROVIDERS Payer name Policy type / Coverage type [place] [employer] party ID [employer] MEDICARE [place] PPO Commercial insurance [facility] [id number] [facility] Medicaid 1 [id number]
--- OUTSIDE RECORDS SUMMARY | 2024-09-27 10:16 | XMS_ITS | Data Portability ---
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 Imaging XR, hand 2022 023 [facility] [place], [address], [place], [address], 09:06:06 XR, wrist 2022 023 [facility] [place], [address], [place], [address], 12:13:48 Medication Orders ropivacaine (PF) 5 mg/mL [...] more view No observ ation record ed. [id number] [facility] [place] [address], [place], [address], 06/22/2022 12:52:38 05/20/19 23 05/20/2022 XR, wrist , 3 or more view No observ ation record ed. [id number] [facility] [place] [address], [place], [address], 06/22/2022 12:52:38 06/10/19 23 06/14/2022 XR, wrist , 3 or more view No observ ation record ed. [id number] [facility] [place] [address], [place], [address], 06/22/2022 12:52:38 07/21/19 23 XR, wrist No observ ation record ed. [facility] [place] [address], [place], [address], 07/29/2022 09:07:18 02/29/20 23 XR, hand No observ ation record ed. [email or web address] [facility] [place] [address], [place], [address], 02/28/2023 10:08:37 Result Notes None recorded. Problems Name Problem SNOMED Code Status Onset Date Resolution Date Notes Provider Name and Address Organization Details Recorded Time Closed fracture of distal end of radius 30658595 Active 2021 Not Available [facility] 3 12:48:41 Radiothera py follow-up 896486987 Active Not Available [facility] 3 12:48:41 Morbid obesity 259450166 Active Not Available [facility] 3 12:48:41 Osteoarthr itis of hip 630696389 Active Not Available [facility] 3 12:48:41 Current tear of medial cartilage AND/OR meniscus of knee Active Not Available [facility] 3 12:48:41 Knee pain Active Not Available [facility] 3 12:48:41 Osteoarthr itis 874754641 Active Not Available [facility] 3 12:48:41 Pain of hip region 29516550 Active Not Available [facility] 3 12:48:41 Derangemen t of knee 19422554 Active Not Available [facility] 3 12:48:41 Pain of left hand 4875927362617 03 Active 2022 NOHEMY Casas, [place] [facility] 3 10:08:30 Problem Notes None recorded. Procedures Surgical History Date Name Laterality Status Provider Name and Address Organization Details Recorded Time 3 Ortho - Cortisone Injection completed Doe Archer MD [address] [place] [address], [address], [facility] [employer] 03/13/2023 17:44:25 Imaging Results None recorded. Procedure Notes None recorded. Medical Equipment None [...] administe red by the provider 11/28 completed [facility]: 0003- 0494- 20 Not Available Not [...] %) injection solution in office 2022 active [facility] 16991 -064- 01 Not Available Not Available Not Available Vitals Date Recorded Body mass index (BMI) Body height Body weight Provider Name and Address Organization Details Last Updated DateTime 06/10/2022 38.4 kg/m2 149.86 cm 31492.55 g Not Available [facility] 06/22/2022 12:46:42 Date Recorded Body height Body mass index (BMI) Body weight Provider Name and Address Organization Details Last Updated DateTime 07/20/2022 149.86 cm 41.8 kg/m2 73099.62 g Erum Graham CNA [employer] [employer] 07/20/2022 11:47:27 Date Recorded Body height Body mass index (BMI) Body weight Provider Name and Address Organization Details Last Updated DateTime 09/14/2022 149.86 cm 39.8 kg/m2 71306.7 g Erum Graham CNA [facility] [employer] 09/14/2022 11:18:41 Date Recorded Body height Body mass index (BMI) Body weight Provider Name and Address Organization Details Last Updated DateTime 11/30/2022 149.86 cm 41.8 kg/m2 62469.62 leonid Graham CNA [place] [facility] [employer] 11/30/2022 14:48:04 Date Recorded Body height Body mass index (BMI) Body weight Provider Name and Address Organization Details Last Updated DateTime 02/28/2023 149.86 cm 41.6 kg/m2 40455.03 g Erum Graham CNA [facility] [employer] 02/28/2023 10:07:55 Social History Question Answer Notes LastModified by Villij Details LastModified Time Tobacco Smoking Status Former Smoker Not Available [employer] 06/22/2022 12:46:01 When Did You Quit Smoking? 1-5yearssinc elastcigaret te [id number] Information not available 06/22/2022 Sex: Unknown Functional Status Question Answer Note LastModified by Villij Details LastModified Time What is your level of alcohol consumption? None [id number] Information not available 06/22/2022 Mental Status None recorded. Family History Relationship Description Onset Age of this Age Resolved Age Notes LastModified by Organization Details LastModified Time Mother Family history of malignant neoplasm [id number] Not available 06/22/2022 12:46:28 Mother Hypertensive disorder [id number] Not available 06/22/2022 12:46:28 Medical History Condition Response ARTHRITIS Y HYPERTENSION Y CANCER: SPECIFY Y Gynecological HistoryNo gynecological history recorded. Obstetrics History GPAL:G 0 P 0 0 0 0 Past Encounters Encounter ID Performer Location Encounter Start Date Encounter Closed Date Diagnosis/Indication Diagnosis SNOMED-CT Code Diagnosis ICD10 Code Diagnosis Note [id number] Doe Archer MD [facility] [place] [address] [place] [address] 04/22/2022 00:00:00 04/22/2022 13:57:00 [id number] Doe Archer MD [facility] [place] [address] [place] [address] 05/04/2022 00:00:00 05/04/2022 12:49:52 [id number] Doe Archer MD [facility] [place] [address] [place] [address] 05/11/2022 00:00:00 05/11/2022 11:14:56 [id number] Doe Archer MD [facility] [place] [address] [place] [address] 05/20/2022 00:00:00 05/23/2022 09:45:41 [id number] Doe Archer MD [facility] [place] [address] [place] [address] 06/10/2022 00:00:00 06/10/2022 14:24:14 [id number] Doe Archer MD [facility] [place] [address] [place] [address] 07/20/2022 11:44:58 07/20/2022 12:02:58 Closed fracture of distal end of radius 54552742 S52.502A [id number] Doe Archer MD [facility] [place] [address] [place] [address] 09/14/2022 11:13:40 09/14/2022 11:45:34 Closed fracture of distal end of radius 57140948 S52.502A [id number] Doe Archer MD [facility] [place] [address] [place] [address] 11/30/2022 14:45:23 11/30/2022 14:59:44 Closed fracture of distal end of radius 37150619 S52.501D [id number] Doe Archer MD [facility] [place] [address] [place] [address] 02/28/2023 10:03:21 02/28/2023 11:43:15 Pain of left hand 6629048118 87094 M79.642 Health Concerns Section Related Observation LastModified by Organization Detai ls LastModified Time None Recorded Concern Status LastModified by Organization Details LastModified Time None Recorded Advance Directives Directive None Recorded Payers Encounter Date Sequence Insurance Name Policy Number Policy Raines Covered Member ID Raines Member ID Guarantor Name 07/20/2022 1 [employer] (MEDICARE REPLACEMENT/A DVANTAGE - [place]PO) [id number] Lauren Martinez [id number] Lauren Dass 07/20/2022 2 [place] [facility] Lauren Martinez [id number] Lauren Dass 09/14/2022 1 [employer] (MEDICARE REPLACEMENT/A DVANTAGE - PPO) [id number] Lauren Martinez [id number] Lauren Dass 09/14/2022 2 [place] [facility] Lauren Martinez [id number] Lauren Martinez 11/30/2022 1 [employer] (MEDICARE REPLACEMENT/A DVANTAGE - [place]PO) [id number] Lauren Martinez [id number] Lauren Dass 11/30/2022 2 [place] [employer] [place] Lauren Martinez [id number] Lauren Martinez 02/28/2023 1 [employer] (MEDICARE REPLACEMENT/A DVANTAGE - PPO) [id number] Lauren Martinez [id number] Lauren Dass 02/28/2023 2 [place] [employer] [place] [employer] Lauren Martinez [id number] Lauren Martinez OBGyn Episode No OBEpisode recorded.
--- OUTSIDE RECORDS SUMMARY | 2024-09-27 10:35 | XMS_ITS | CONTINUITY OF CARE DOCUMENT ---
Author Name francis blanco Address Unknown Organization [facility] Address [address] [place] [address] Phone [phone] Care Team Providers Care Paper Carrier Name Role Phone Imer Greene MD Unavailable KRIS RIGGINS MD Unavailable [phone] KRIS RIGGINS MD Unavailable [phone] INSURANCE PROVIDERS Payer name Policy type / Coverage type [place] red green party ID AETNA MEDICARE [place] PPO Commercial insurance co [facility] [id number] [facility] Medicaid 1 [id number]
[2024-09-27 11:41] LABS: Alanine Aminotransferase 10 U/L (6-35); Albumin Level 4.2 g/dL (3.5-5.1); Alkaline Phosphatase 77 U/L (38-126); Anion Gap 11 mmol/L (4-12); Aspartate Amino Transferase 24 U/L (14-36); Bilirubin,Total 0.6 mg/dL (0.2-1.3); Blood Urea Nitrogen 24 mg/dL (7-17); Calcium 9.3 mg/dL (8.4-10.2); Carbon Dioxide 25 mmol/L (22-30); Chloride 104 mmol/L (98-107); Estimated Glomerular Filt Rate 26; Glucose 101 mg/dL (65-110); Potassium 3.6 mmol/L (3.4-5.0); Sodium 140 mmol/L (137-145); Total Protein 7.5 g/dL (6.3-8.2)
[2024-09-27 11:48] LABS: Basophils Percent Auto 0.6 % (0.2-1.2); Eosinophils Absolute Auto 0.2 K/mm3 (0-0.3); Eosinophils Percent Auto 3.7 % (0-4.4); Hematocrit 34.6 % (37.0-47.0); Hemoglobin 10.6 g/dL (12.0-15.0); Immature Granulocyte Absolute 0.02 K/mm3 (0.00-0.031); Immature Granulocyte Percent A 0.3 % (0-0.5); Immature Platelet Fraction Pct 4.7 % (0.9-11.2); Lymphocytes Absolute Auto 1.25 K/mm3 (0.9-3.2); Lymphocytes Percent Auto 19.1 % (18.3-44.2); Mean Corpuscular HGB Conc 30.6 g/dl (32-36); Mean Corpuscular Hemoglobin 27.6 pg (26-34); Mean Corpuscular Volume 90.1 fl (80-100); Mean Platelet Volume 11.6 fl (7.4-10.4); Monocytes Absolute Auto 0.5 K/mm3 (0.1-0.6); Monocytes Percent Auto 7.2 % (2.6-8.5); Neutrophils Absolute Auto 4.5 K/mm3 (1.3-6.7); Neutrophils Percent Auto 69.1 % (45.5-73.1); Platelet Count Result 152 k/mm3 (150-375); Red Blood Count 3.84 M/mm3 (4.2-5.4); Red Cell Distribution Width 15.7 % (11.5-14.5); White Blood Count 6.6 K/mm3 (4.5-10.0)
[2024-09-27 11:49] LABS: NT Pro B Type Natriuretic Pept 764 pg/mL (19.9-100)
--- NOTE | 2024-09-27 12:13 | ED_ITS ---
HPI - General Adult General Chief complaint: Shortness of Breath/Dyspnea Stated complaint: shortness of breath Time Seen by Provider: 09/27/24 10:24 History of Present Illness HPI narrative: Patient is an 89-year-old female who presents ER with some shortness of breath. Patient has left-sided lung cancer. She is receiving a targeted radiation and had her 6 treatment today. There is concerned she had a pleural effusion with her shortness of breath so they sent her here for further evaluation. No chest pain. No productive cough. No fevers or chills. Related Data Allergies Allergy/AdvReac Type Severity Reaction Status Date / Time No Known Allergies Allergy Verified 09/27/24 10:31 Review of Systems 2 Review of Systems: All systems reviewed & are unremarkable except as noted in HPI and below Constitutional: Constitutional: Reports no additional constitutional complaints ENT: Reports system reviewed and no additional complaints, except as documented Cardiovascular: Cardiovascular: Reports no additional cardiovascular complaints Respiratory: Respiratory: Reports no additional respiratory complaints Musculoskeletal: Musculoskeletal: Reports no additional musculoskeletal complaints [facility] Past Medical History Medical History (Updated 09/27/24 @ 13:20 by Nagi Barth MD) Fracture of radius, distal, right, closed Primary cancer of right breast with tumor greater than 10 mm and less than or equal to 20 mm at greatest diameter (T1c) 2014 COPD (chronic obstructive pulmonary disease) case management patient Kidney stones Breast cancer in female Hypertension Surgical History Surgical History History of total right hip arthroplasty 11/04 History of total left hip replacement 06/04 History of hysterectomy 1981 History of back surgery lumbar decompression 07/29 S/P lumpectomy, left breast 2002 History of hip replacement S/P lumpectomy, right breast 2014 Family History Family History Mother Carcinoma of colon Father Acute myocardial infarction Social History Social History (Updated 10/31/22 @ 10:24 by Anette Stewart CMA) Smoking packs per day: 0.5 Smoking cigarettes per day: 10.0 Years smoked: 15 Smoking pack-years: 7.50 Smoking status: Former smoker Tobacco type: cigarettes Smoking end date: 01/23/24 Alcohol intake: never Lack of Transportation: No Lack of Food: Never True Current Housing: I Have Housing Concerned About Future Housing: No Difficulty Paying Gas/Electric Bills: No Difficulty Paying for Meds: No Currently Unemployed: No Education: High School Diploma/GED Difficulty w/ Childcare or Family Care: No Gender identity (if verbalized by the patient): Female Spiritual care concerns: No Exam 2 Narrative: GENERAL: Well-appearing, well-nourished, and in no acute distress. HEAD: Normocephalic, atraumatic. ENT: Mucous membranes moist. NECK: Supple. CHEST: Clear to auscultation but slightly diminished left base. No respiratory distress. HEART: Regular rate and rhythm. Normal peripheral pulses. ABDOMEN: Soft, nontender, nondistended. EXTREMITIES: Normal range of motion. No edema. NEURO: Alert and oriented x3. PSYCH: Normal mood and affect. Course Course Emergency Course: Patient resting comfortably. Discussed case with her oncologist Dr. Acevedo. Patient has no hypoxia. Pleural effusion is moderate in size. Discussed that she may require thoracentesis later but does not need emergent procedure at this time. She would likely benefit from having a drain placed as she is going to continue to receive radiation and may have recurrent buildup of this fluid. She has been instructed to contact her PCP or oncologist should she have worsening shortness of breath. She may also return the ER. Vital Signs Vital signs: Vital Signs Pulse Rate 92 09/27/24 10:24 Respiratory Rate 24 H 09/27/24 10:24 Blood Pressure 136/96 H 09/27/24 10:24 Pulse Oximetry 94 09/27/24 10:24 Oxygen Delivery Room Air 09/27/24 10:24 Temperature 97.8 F 09/27/24 14:01 Pulse Rate 87 09/27/24 13:12 Respiratory Rate 24 H 09/27/24 13:12 Blood Pressure 136/91 H 09/27/24 13:12 Pulse Oximetry 94 09/27/24 13:00 Oxygen Delivery Room Air 09/27/24 10:28 Medical Decision Making Vital Signs Vital Signs: Vital Signs Pulse Rate 92 09/27/24 10:24 Respiratory Rate 24 H 09/27/24 10:24 Blood Pressure 136/96 H 09/27/24 10:24 Pulse Oximetry 94 09/27/24 10:24 Oxygen Delivery Room Air 09/27/24 10:24 Temperature 97.8 F 09/27/24 14:01 Pulse Rate 87 09/27/24 13:12 Respiratory Rate 24 H 09/27/24 13:12 Blood Pressure 136/91 H 09/27/24 13:12 Pulse Oximetry 94 09/27/24 13:00 Oxygen Delivery Room Air 09/27/24 10:28 Lab Data 09/27/24 11:14 09/27/24 11:14 Labs: Lab Results 09/27/24 Range/Units 11:14 WBC 6.6 (4.5-10.0) K/mm3 RBC 3.84 L (4.2-5.4) M/mm3 Hgb 10.6 L (12.0-15.0) g/dL Hct 34.6 L (37.0-47.0) % MCV 90.1 (80-100) fl MCH 27.6 (26-34) pg MCHC 30.6 L (32-36) g/dl RDW 15.7 H (11.5-14.5) % Plt Count 152 (150-375) k/mm3 MPV 11.6 H (7.4-10.4) fl Immature Gran % (Auto) 0.3 (0-0.5) % Neut % (Auto) 69.1 (45.5-73.1) % Lymph % (Auto) 19.1 (18.3-44.2) % Griggs % (Auto) 7.2 (2.6-8.5) % Eos % (Auto) 3.7 (0-4.4) % Baso % (Auto) 0.6 (0.2-1.2) % Lymph # (Auto) 1.25 (0.9-3.2) K/mm3 Griggs # (Auto) 0.5 (0.1-0.6) K/mm3 Eos # (Auto) 0.2 (0-0.3) K/mm3 Baso # (Auto) 0.0 (0.0-0.1) K/mm3 Abs Immat Gran (auto) 0.02 (0.00-0.031) K/mm3 Absolute Neuts (auto) 4.5 (1.3-6.7) K/mm3 Absolute Nucleated RBC 0.000 (0.0-0.012) K/mm3 Band Neutrophils % Not Reportable Nucleated RBC % 0.0 (0.0-0.2) % Platelet Estimate Adequate (Adequate) % Immature Plt Fraction 4.7 (0.9-11.2) % Hypochromasia 1+ Anisocytosis 1+ Schistocytes None seen Sodium 140 (137-145) mmol/L Potassium 3.6 (3.4-5.0) mmol/L Chloride 104 (98-107) mmol/L Carbon Dioxide 25 (22-30) mmol/L Anion Gap 11 (4-12) mmol/L BUN 24 H (7-17) mg/dL Creatinine 1.85 H (0.7-1.0) mg/dL Estim Creat Clear Calc Not Reportable Estimated GFR 26 L (59 - ) Glucose 101 (65-110) mg/dL Calcium 9.3 (8.4-10.2) mg/dL Total Bilirubin 0.6 (0.2-1.3) mg/dL AST 24 (14-36) U/L ALT 10 (6-35) U/L Alkaline Phosphatase 77 (38-126) U/L NT-Pro-B Natriuret Pep 764 H (19.9-100) pg/mL Total Protein 7.5 (6.3-8.2) g/dL Albumin 4.2 (3.5-5.1) g/dL Imaging Data Radiologist's impression: ITS Impressions Chest X-Ray 09/27/24 11:22 Impression: 1: Left midthoracic mass, compatible with bronchogenic carcinoma until proven otherwise. 2: Moderate left pleural effusion. 3: Right basilar atelectasis. Discharge Plan Discharge Clinical Impression: Pleural effusion Patient Disposition: Home Condition: Stable Instructions: Pleural Effusion (DC) Additional Instructions: Please return to the emergency department if you develop severe and persistent chest pain, difficulty breathing, dizziness, leg swelling or if you are coughing up blood as these can be signs of a medical emergency. Please call your doctor for a follow up appointment to determine the need for further testing. You have fluid buildup between your lung and chest wall as a side effect of your radiation treatment. This may worsen. If you have increased shortness of breath contact your oncologist or your primary care doctor about having a procedure to drain the fluid and possibly having a drain placed in your chest wall. Patient Language: Bulgarian Prescriptions: No Action NM VIT D3 (ALEJO) 2000IU TAB See Rx Instructions .ROUTE .COMPLEX Qty: 90 2RF Dose Instruction: Take 1 tablet by mouth once daily Rx Instructions: Take 1 tablet by mouth once daily benzonatate 200 mg capsule 200 mg PO TID PRN (Reason: cough) Qty: 20 1RF hydrochlorothiazide 25 mg tablet See Rx Instructions .ROUTE .COMPLEX Qty: 90 2RF Dose Instruction: Take 1 tablet by mouth once daily Rx Instructions: Take 1 tablet by mouth once daily albuterol sulfate 90 mcg/actuation HFA aerosol inhaler See Rx Instructions .ROUTE .COMPLEX Qty: 9 0RF Dose Instruction: INHALE 2 PUFFS BY MOUTH TWICE DAILY NEEDED FOR SHORTNESS OF BREATH Rx Instructions: INHALE 2 PUFFS BY MOUTH TWICE DAILY NEEDED FOR SHORTNESS OF BREATH alendronate 70 mg tablet 70 mg PO WEEKLY Qty: 13 3RF losartan 100 mg tablet See Rx Instructions .ROUTE .COMPLEX Qty: 90 0RF Dose Instruction: Take 1 tablet by mouth once daily Rx Instructions: Take 1 tablet by mouth once daily hydrocodone-acetaminophen 7.5-325 mg tablet 1 tablet PO QID PRN (Reason: Pain) Qty: 120 0RF Follow-up/Referrals: Luis Acevedo MD [Physician] - 1 Week UNKNOWN,DOCTOR [Primary Care Provider] -
[2024-09-27 12:20] LABS: Anisocytosis 1+; Hypochromasia 1+; Platelet Estimate Adequate (Adequate)
[2024-09-27 12:21] LABS: Schistocytes None Seen
== END 2024-09-27 14:02 | disposition home or self-care (01) ==
PROVIDERS: Emergency Provider Emergency Medicine
DX: J90 Pleural effusion, not elsewhere classified (principal); C34.92 Malignant neoplasm of unspecified part of left bronchus or lung; I10 Essential (primary) hypertension; J44.9 Chronic obstructive pulmonary disease, unspecified; Z85.3 Personal history of malignant neoplasm of breast; Z87.442 Personal history of urinary calculi; Z96.643 Presence of artificial hip joint, bilateral; Z90.710 Acquired absence of both cervix and uterus; Z87.891 Personal history of nicotine dependence; Z79.899 Other long term (current) drug therapy
CPT/HCPCS: 36415; 71046; 80053; 83880; 85025; 85055; 99284

== ENCOUNTER 2024-10-02 09:54 | Inpatient (IN) | payer MEDICARE, SELFPAY ==
[2024-10-02] VITALS (24 sets, daily range): BP systolic 117–149; BP diastolic 67–91; PULSE 78–93; RESP 14–27; TEMP 36.4–37; O2SAT 87–100; BMI 35.7
--- NOTE | ~2024-10-02 | XR_ITS ---
XR chest 1V portable 10/05/2024 09:10 Indication: Pleural effusion. Procedure: AP portable chest Comparison: Comparison to multiple prior studies sequentially, with oldest reviewed study dated 08/01. Findings: Worsening airspace consolidation left mid and lower thorax. Small left pleural effusion. No pneumothorax. Right basilar atelectasis. Stable cardiomediastinal silhouette allowing for consolidat ion.. Impression: 1: Worsening airspace consolidation left mid and lower thorax, consistent with pneumonia. Reviewed, dictated and finalized at location B. Impression: 1: Worsening airspace consolidation left mid and lower thorax, consistent with pneumonia.
--- NOTE | ~2024-10-02 | CT_ITS ---
Oral HISTORY: 89-year-old woman with a remote history of right-sided breast cancer presents with worsening shortness of breath during treatment of left-sided lung cancer (diagnosed in July 2024). Currently hospitalized with shortness of breath and bacteremia, without significant clinical improvement. Chest CT was requested for further evaluation COMPARISON: Plain film evaluation of the chest performed 6 hours earlier. Reference was also made to a CT examination of the chest dated 06/24/2024, and PET/CT performed 07/12/19 TECHNIQUE: Multiple contiguous axial images of the chest was performed following the administration o f intravenous contrast. This CT examination was performed utilizing dose reduction techniques. DLP: 220 mGy-cm FINDINGS/OBSERVATIONS: LUNG: Innumerable 5 to 8mm pulmonary nodules detected bilaterally, for which metastatic disease is suspecte d. Redemonstration of a left upper lobe pleural-based mass, consistent with biopsy-proven non-small cell lung cancer Increased left-sided pleural effusion with adjacent consolidation when compared with examination from recent lung biopsy performed 2 months earlier. HEART: The heart is enlarged, with a moderate pericardial effusion. MEDIASTINUM: Limited evaluation without intravenous contrast. SOFT TISSUES OF THE CHEST: Postoperative change within the bilateral breast tissue and bilateral axilla. A nonpathologically enlarged but morphologically suspicious lymph node is identified within the left axilla (axial series, image 56) measuring 12 mm in short axis dimension. BONES OF THE CHEST: Age-appropriate degenerative disease, without acute fracture. No lytic or blastic lesions are identified. IMPRESSION: Increased left-sided pleural effusion, as detailed above. Redemonstration of patient's known biopsy-proven malignancy within the left upper lobe. Additional findings within the chest consistent with diffuse metastatic disease (lung versus breast). Morphologically suspicious lymph node within the left axilla, as detailed above. Reviewed, dictated and finalized at location A. IMPRESSION: Increased left-sided pleural effusion, as detailed above. Redemonstration of patient's known biopsy-proven malignancy within the left up per lobe. Additional findings within the chest consistent with diffuse metastatic disease (lung versus breast). Morphologically suspicious lymph node within the left axilla, as detailed above .
--- NOTE | ~2024-10-02 | NM_ITS ---
EXAMINATION: NM lung vent and perfusion DATE: 10/07/2024 13:41 INDICATION: Lung cancer with worsening left pleural effusion and associated lung disease. TECHNIQUE: 25.8 mCi xenon-133 by inhalation and 5.3 mCi Tc-99m MAA by intravenous route. Scintigraph ic images of the chest were obtained. COMPARISON: Chest radiograph dated 10/07/[address] dated 10/05/2024 FINDINGS: There is a prominent decreased ventilation and perfusion throughout the left lung on the posterior sc intigrams, matched in the mid and upper lungs and with decreased but still apparent activity on the p erfusion images but without discernible activity on the ventilation images at the left lower lung zon e. On the left lateral and oblique imaging there is absent perfusion posteriorly in the lower lung zone corresponding to small to moderate-sized pleural effusion on prior CT as well as at the lingula corre sponding to a large mass in this region consistent with biopsy-proven lung cancer. No evident ventila tion or perfusion defects in the right lung. IMPRESSION: 1. Nondiagnostic, low or intermediate probability for pulmonary embolism. Reviewed, dictated and finalized at location B.
--- NOTE | ~2024-10-02 | XR_ITS ---
EXAMINATION: XR chest 1V DATE: 10/07/2024 13:47 INDICATION: Lung cancer TECHNIQUE: frontal view of the chest was obtained. COMPARISON: Chest radiograph and CT dated 10/05/2024 FINDINGS: Increasing consolidation in the left mid and lower lung zones consistent with enlarging small to mode rate-sized left pleural effusion and associated atelectasis and/or pneumonia. There is a superimposed masslike opacity projecting over the left midlung zone corresponding to biopsy-proven primary lung c ancer. There are a few scattered small nodular opacities in the left upper lung zone and in the right mid and lower lung zones suspicious for metastatic disease. No pneumothorax or right-sided pleural e ffusion. There is obscured by the adjacent pleural effusion and lung disease. Surgical clips at the l eft axilla consistent with prior lymph node dissection. IMPRESSION: 1. Increasing moderate-sized left pleural effusion with associated atelectasis and/or pneumonia in th e left mid to lower lung zone. 2. Superimposed masslike opacity in the left midlung zone and a few subtle smaller scattered bilatera l pulmonary nodules consistent with primary lung cancer and associated metastatic disease. Reviewed, dictated and finalized at location A. IMPRESSION: 1. Increasing moderate-sized left pleural effusion with associated atelectasis and/or pneumonia in the left mid to lower lung zone. 2. Superimposed masslike opacity in the left midlung zone and a few subtle smal ler scattered bilateral pulmonary nodules consistent with primary lung cancer a nd associated metastatic disease.
--- NOTE | ~2024-10-02 | XR_ITS ---
[id number] 10/02/2024 15:22 Indication: Postthoracentesis. Shortness of breath. History of breast cancer. Procedure: 2 view chest Comparison: 10/02 and 09/27/2024 Findings: Decreased size of left pleural effusion postthoracentesis. Bilateral airspace disease prese nt in the mid and lower lungs, left greater than right. Cardiomegaly. There is hiatal hernia. There a re changes of left axillary lymph node dissection. No pneumothorax identified post procedure. Impression: 1: Decreased left pleural effusion post thoracentesis with no evidence for pneumothorax. Reviewed, dictated and finalized at location B. Impression: 1: Decreased left pleural effusion post thoracentesis with no evidence for pneu mothorax.
--- NOTE | ~2024-10-02 | XR_ITS ---
EXAMINATION: XR chest 2V DATE: 10/02/2024 11:43 INDICATION: Shortness of breath TECHNIQUE: frontal and lateral views of the chest were obtained. COMPARISON: Chest radiograph dated 09/27/2024 FINDINGS: Increasing now moderate to large pleural effusion. There are increasing opacities in the more cephala d left mid to upper lung zones and at the right lower lung zone. No pneumothorax or definitive right pleural effusion. Left heart border is obscured. Surgical clips at the bilateral axilla. Severe thora cic spondylosis. IMPRESSION: 1. Increasing moderate to large left pleural effusion. 2. Increasing opacities in the left mid to upper and right lower lung zones which could represent ate lectasis or pneumonia. Reviewed, dictated and finalized at location A. IMPRESSION: 1. Increasing moderate to large left pleural effusion. 2. Increasing opacities in the left mid to upper and right lower lung zones whi ch could represent atelectasis or pneumonia.
--- NOTE | ~2024-10-02 | US_ITS ---
EXAMINATION: US thoracentesis DATE: 10/02/2024 15:50 INDICATION: Left pleural effusion TECHNIQUE: The procedure and its risks and benefits were discussed with the patient. Potential risks discussed included bleeding, infection, and pneumothorax. The patient understood the risks and agreed to proceed. The skin was prepped and draped in sterile fashion. 1% lidocaine was used for local anes thesia. Under ultrasound guidance, a 5 Fr catheter with trochar was advanced into the left pleural ef fusion. Fluid was aspirated. The catheter was removed, and a dressing was applied. There were no imme diate complications. FINDINGS: Ultrasound images demonstrate a moderate-sized left pleural effusion and the catheter within the flui d. IMPRESSION: 1. Successful ultrasound-guided thoracentesis yielding 1000 mL of bloody dark maroon-colored fluid. Reviewed, dictated and finalized at location A.
--- NOTE | 2024-10-02 10:02 | ECG_ITS ---
Test Date: 2024-10-02 10:07:15 Measurements Intervals [place] Rate: 88 P: 48 TN: 144 QRS: 12 QRSD: 89 T: -61 QT: 368 QTc: 447 Interpretive Statements SINUS RHYTHM WITH OCCASIONAL VENTRICULAR PREMATURE COMPLEXES WITH OCCASIONAL SUPRAVENTRICULAR PREMATURE COMPLEXES POSSIBLE LEFT ATRIAL ENLARGEMENT BORDERLINE ST-T WAVE ABNORMALITY- INF/HIGH LAT LEADS BASELINE ARTIFACT- I, II, III, AVR, AVL, AVF, V2, V4-V6 BORDERLINE ECG No previous ECG available for comparison Electronically Signed On 10-02-2024 10:11:50 CDT by Alber Carlin D.O.
[2024-10-02 10:16] LABS: Basophils Percent Auto 0.7 % (0.2-1.2); Eosinophils Absolute Auto 0.2 K/mm3 (0-0.3); Eosinophils Percent Auto 3.8 % (0-4.4); Hematocrit 34.9 % (37.0-47.0); Hemoglobin 10.6 g/dL (12.0-15.0); Immature Granulocyte Absolute 0.02 K/mm3 (0.00-0.031); Immature Granulocyte Percent A 0.3 % (0-0.5); Lymphocytes Absolute Auto 0.91 K/mm3 (0.9-3.2); Lymphocytes Percent Auto 14.9 % (18.3-44.2); Mean Corpuscular HGB Conc 30.4 g/dl (32-36); Mean Corpuscular Hemoglobin 27.2 pg (26-34); Mean Corpuscular Volume 89.5 fl (80-100); Mean Platelet Volume 10.4 fl (7.4-10.4); Monocytes Absolute Auto 0.4 K/mm3 (0.1-0.6); Neutrophils Absolute Auto 4.5 K/mm3 (1.3-6.7); Neutrophils Percent Auto 73.3 % (45.5-73.1); Platelet Count Result 192 k/mm3 (150-375); Red Cell Distribution Width 15.9 % (11.5-14.5); White Blood Count 6.1 K/mm3 (4.5-10.0)
[2024-10-02 10:31] LABS: Alanine Aminotransferase 8 U/L (6-35); Albumin Level 4.3 g/dL (3.5-5.1); Alkaline Phosphatase 79 U/L (38-126); Anion Gap 10 mmol/L (4-12); Aspartate Amino Transferase 22 U/L (14-36); Bilirubin,Total 0.5 mg/dL (0.2-1.3); Blood Urea Nitrogen 18 mg/dL (7-17); Calcium 9.6 mg/dL (8.4-10.2); Carbon Dioxide 28 mmol/L (22-30); Chloride 103 mmol/L (98-107); Estimated Glomerular Filt Rate 29; Glucose 105 mg/dL (65-110); Potassium 3.5 mmol/L (3.4-5.0); Sodium 141 mmol/L (137-145); Total Protein 7.6 g/dL (6.3-8.2)
[2024-10-02 10:32] LABS: INR 1.1; Prothrombin Time 14.6 Seconds (11.1-14.7)
[2024-10-02 10:33] LABS: Partial Thromboplastin Time 28.4 Seconds (22.3-36.8)
--- NOTE | 2024-10-02 10:54 | PC.NURSE ---
Pt called out asking to use the bathroom. This RN assisted pt to the bathroom. Upon pt walking back to room, pts o2 was 87%. EDP Dr. Barth aware, pt placed on 2L via NC and o2 saturation is 98%
--- OUTSIDE RECORDS SUMMARY | 2024-10-02 11:08 | XMS_ITS | CONTINUITY OF CARE DOCUMENT ---
Author Name francis blanco Address Unknown Organization [facility] Address [address] [place] [address] Phone [phone] Care Team Providers Care Manager Decision Support Name Role Phone Imer Greene MD Unavailable KRIS RIGGINS MD Unavailable [phone] KRIS RIGGINS MD Unavailable [phone] INSURANCE PROVIDERS Payer name Policy type / Coverage type [place] red democrat ID [employer]ETNA MEDICARE [place] PPO Commercial insurance [facility] [id number] [facility] Medicaid 1 [id number]
[2024-10-02 11:20] LABS: NT Pro B Type Natriuretic Pept 922 pg/mL (19.9-100)
--- NOTE | 2024-10-02 12:05 | ED_ITS ---
HPI - SOB/Dyspnea General Chief Complaint: Shortness of Breath/Dyspnea Stated Complaint: HEMOPTYSIS,TROUBLE BREATHING Time Seen by Provider: 10/02/24 10:07 History of Present Illness HPI Narrative: Patient is an 89-year-old female who presents ER with shortness of breath. Worsening over last week. Recently evaluated for pleural effusion. She is getting regular radiation for a known lung malignancy. She has had 9 total radiation treatments. Patient's exertional ability has significantly dropped off over last week. No fevers or chills but reports productive cough. Occasional blood-streaked sputum which was also led her to be diagnosed with cancer. Related Data Home Medications ?Medication ?Instructions ?Recorded ?Confirmed ?Last Taken ?Type exemestane 25 mg tablet 25 mg PO DAILY cough 10/02/24 10/02/24 10/01/24 History guaifenesin 600 mg tablet, 600 mg PO ONCE cough 10/02/24 10/02/24 10/01/24 History extended release 12 hr (Mucinex) Allergies Allergy/AdvReac Type Severity Reaction Status Date / Time No Known Allergies Allergy Verified 10/02/24 14:02 Review of Systems 2 Review of Systems: All systems reviewed & are unremarkable except as noted in HPI and below Constitutional: Constitutional: Reports no additional constitutional complaints ENT: Reports system reviewed and no additional complaints, except as documented Cardiovascular: Cardiovascular: Reports no additional cardiovascular complaints Respiratory: Respiratory: Reports no additional respiratory complaints Gastrointestinal: Gastrointestinal: Reports no additional gastrointestinal complaints [facility]LY [facility] Past Medical History Medical History Lung cancer (07/2024) Primary adenocarcinoma of the lung Fracture of radius, distal, right, closed COPD (chronic obstructive pulmonary disease) case management patient Kidney stones Breast cancer in female left, 2004. right, 2015. Hypertension Surgical History Surgical History History of total right hip arthroplasty 11/04 History of total left hip replacement 06/04 History of hysterectomy 1981 History of back surgery lumbar decompression 07/29 S/P lumpectomy, left breast 2002 History of hip replacement S/P lumpectomy, right breast 2014 Family History Family History Mother Carcinoma of colon Father Acute myocardial infarction Social History Social History Smoking packs per day: 0.5 Smoking cigarettes per day: 10.0 Years smoked: 15 Smoking pack-years: 7.50 Smoking status: Former smoker Tobacco type: cigarettes Smoking end date: 01/23/24 Alcohol intake: never Substance use: never Do You Feel Safe in your Home?: Yes Lack of Transportation: No Lack of Food: Never True Current Housing: I Have Housing Concerned About Future Housing: No Difficulty Paying Gas/Electric Bills: No Difficulty Paying for Meds: No Currently Unemployed: No Education: High School Diploma/GED Difficulty w/ Childcare or Family Care: No Gender identity (if verbalized by the patient): Female Spiritual care concerns: No Exam 2 Narrative: GENERAL: Well-appearing, well-nourished, and in no acute distress. HEAD: Normocephalic, atraumatic. ENT: Mucous membranes moist. NECK: Supple. CHEST: Diminished left lung sounds. No respiratory distress. HEART: Regular rate and rhythm. Normal peripheral pulses. ABDOMEN: Soft, nontender, nondistended. EXTREMITIES: Normal range of motion. No edema. SKIN: Warm, dry, no rash. NEURO: Alert and oriented x3. PSYCH: Normal mood and affect. Course Course Emergency Course: Patient going to received thoracentesis. Admit to hospitalist service. Broad- spectrum antibiotics started. Vital Signs Vital signs: Vital Signs Temperature 97.6 F 10/02/24 10:01 Pulse Rate 93 10/02/24 10:01 Respiratory Rate 20 10/02/24 10:01 Blood Pressure 149/91 H 10/02/24 10:01 Pulse Oximetry 91 10/02/24 10:01 Oxygen Delivery Room Air 10/02/24 10:01 Temperature 97.6 F 10/02/24 10:01 Pulse Rate 89 10/02/24 15:23 Respiratory Rate 10/02/24 15:23 Blood Pressure 134/73 10/02/24 15:23 Pulse Oximetry 99 10/02/24 15:23 Oxygen Delivery Nasal Cannula 10/02/24 15:00 Oxygen Flow Rate 1 10/02/24 15:00 MDM - SOB/Dyspnea Lab Data 10/02/24 10:08 06/11/25 10:08 Labs: Lab Results 10/02/24 10/02/24 Range/Units 10:06 10:08 WBC 6.1 (4.5-10.0) K/mm3 RBC 3.90 L (4.2-5.4) M/mm3 Hgb 10.6 L (12.0-15.0) g/dL Hct 34.9 L (37.0-47.0) % MCV 89.5 (80-100) fl MCH 27.2 (26-34) pg MCHC 30.4 L (32-36) g/dl RDW 15.9 H (11.5-14.5) % Plt Count 192 (150-375) k/mm3 MPV 10.4 (7.4-10.4) fl Immature Gran % (Auto) 0.3 (0-0.5) % Neut % (Auto) 73.3 H (45.5-73.1) % Lymph % (Auto) 14.9 L (18.3-44.2) % [place] % (Auto) 7.0 (2.6-8.5) % Eos % (Auto) 3.8 (0-4.4) % Baso % (Auto) 0.7 (0.2-1.2) % Lymph # (Auto) 0.91 (0.9-3.2) K/mm3 [place] # (Auto) 0.4 (0.1-0.6) K/mm3 Eos # (Auto) 0.2 (0-0.3) K/mm3 Baso # (Auto) 0.0 (0.0-0.1) K/mm3 Abs Immat Gran (auto) 0.02 (0.00-0.031) K/mm3 Absolute Neuts (auto) 4.5 (1.3-6.7) K/mm3 Absolute Nucleated RBC 0.000 (0.0-0.012) K/mm3 Nucleated RBC % 0.0 (0.0-0.2) % PT 14.6 (11.1-14.7) Seconds INR 1.1 APTT 28.4 (22.3-36.8) Seconds Sodium 141 (137-145) mmol/L Potassium 3.5 (3.4-5.0) mmol/L Chloride 103 (98-107) mmol/L Carbon Dioxide 28 (22-30) mmol/L Anion Gap 10 (4-12) mmol/L BUN 18 H (7-17) mg/dL Creatinine 1.65 H (0.7-1.0) mg/dL Estim Creat Clear Calc Not Reportable Estimated GFR 29 L (59 - ) Glucose 105 (65-110) mg/dL Calcium 9.6 (8.4-10.2) mg/dL Total Bilirubin 0.5 (0.2-1.3) mg/dL AST 22 (14-36) U/L ALT 8 (6-35) U/L Alkaline Phosphatase 79 (38-126) U/L NT-Pro-B Natriuret Pep 922 H (19.9-100) pg/mL Total Protein 7.6 (6.3-8.2) g/dL Albumin 4.3 (3.5-5.1) g/dL Imaging Data Radiologist's impression: ITS Impressions Chest X-Ray 10/02/24 11:58 IMPRESSION: 1. Increasing moderate to large left pleural effusion. 2. Increasing opacities in the left mid to upper and right lower lung zones which could represent atelectasis or pneumonia. ECG Data EKG #1: ECG completion date: 10/02/24 ECG completion time: 10:07 EKG Interpretation: normal rate (88), sinus rhythm, PACs, normal QRS and normal QT Discharge Plan Discharge Clinical Impression: Pleural effusion, Pneumonia Patient Disposition: Still a Patient Condition: Stable
--- OUTSIDE RECORDS SUMMARY | 2024-10-02 12:10 | XMS_ITS | CONTINUITY OF CARE DOCUMENT ---
Author Name francis blanco Address Unknown Organization [facility] Address [address] [place] [address] Phone [phone] Care Team Providers Care Toy Assembler Name Role Phone Imer Greene MD Unavailable [phone] KRIS RIGGINS MD Unavailable [phone] KRIS RIGGINS MD Unavailable [phone] INSURANCE PROVIDERS Payer name Policy type / Coverage type [place] red democrat ID [employer] MEDICARE [place] PPO Commercial insurance co [facility] [id number] [facility] Medicaid 1 [id number]
--- OUTSIDE RECORDS SUMMARY | 2024-10-02 12:10 | XMS_ITS | Data Portability ---
Author Organization [place] - [facility], Main Office Address [address] [place] [address] Care Team Providers Care Cloth Pattern Maker Name Role Phone REMEDIOS MELGOZA Primary Care Provider REMEDIOS MELGOZA Referring Provider [phone] Assessment Encounter Date Assessment Date Assessment LastModified [...] DO Not Attach Compendium, Do Not Delete/merge, [id number] 11:27:59 Surgeries None recorded. Imaging XR, hand 2022 023 [facility] [place], [address], [place], [address], 09:06:06 XR, wrist 2022 023 [facility] [place], [address], [place], [address], 12:13:48 Medication Orders ropivacaine (PF) 5 mg/mL [...] more view No observ ation record ed. [id number] [facility] [place] [address], [place], [address], 06/22/2022 12:52:38 05/20/19 23 05/20/2022 XR, wrist , 3 or more view No observ ation record ed. [id number] [facility] [place] [address], [place], [address], 06/22/2022 12:52:38 06/10/19 23 06/14/2022 XR, wrist , 3 or more view No observ ation record ed. [id number] [facility] [place] [address], [place], [address], 06/22/2022 12:52:38 07/21/19 23 XR, wrist No observ ation record ed. [facility] [place] [address], [place], [address], 07/29/2022 09:07:18 02/29/20 23 XR, hand No observ ation record ed. [email or web address] [facility] [place] [address], [place], [address], 02/28/2023 10:08:37 Result Notes None recorded. Problems Name Problem SNOMED Code Status Onset Date Resolution Date Notes Provider Name and Address Organization Details Recorded Time Closed fracture of distal end of radius 81369877 Active 2021 Not Available [facility] 3 12:48:41 Radiothera py follow-up 513609302 Active Not Available [facility] 3 12:48:41 Morbid obesity 181170687 Active Not Available [facility] 3 12:48:41 Osteoarthr itis of hip 278452531 Active Not Available [facility] 3 12:48:41 Current tear of medial cartilage AND/OR meniscus of knee Active Not Available [facility] 3 12:48:41 Knee pain Active Not Available [facility] 3 12:48:41 Osteoarthr itis 487250888 Active Not Available [facility] 3 12:48:41 Pain of hip region 41019137 Active Not Available [facility] 3 12:48:41 Derangemen t of knee 96863774 Active Not Available [facility] 3 12:48:41 Pain of left hand 0441404444164 03 Active 2022 NOHEMY Casas, [place] [facility] 3 10:08:30 Problem Notes None recorded. Procedures Surgical History Date Name Laterality Status Provider Name and Address Organization Details Recorded Time 3 Ortho - Cortisone Injection completed Doe Archer MD [address] [place] [address], [address], [employer] 03/13/2023 17:44:25 Imaging Results None recorded. Procedure [...] administe red by the provider 11/28 completed [facility]: 0003- 0494- 20 Not Available Not [...] %) injection solution in office 2022 active [facility] [id number] -064- [phone] Not Available Not Available Not Available Vitals Date Recorded Body mass index (BMI) Body height Body weight Provider Name and Address Organization Details Last Updated DateTime 06/10/2022 38.4 kg/m2 149.86 cm 41588.55 g Not Available [facility] 06/22/2022 12:46:42 Date Recorded Body height Body mass index (BMI) Body weight Provider Name and Address Organization Details Last Updated DateTime 07/20/2022 149.86 cm 41.8 kg/m2 54807.62 g Erum Graham CNA [employer] 07/20/2022 11:47:27 Date Recorded Body height Body mass index (BMI) Body weight Provider Name and Address Organization Details Last Updated DateTime 09/14/2022 149.86 cm 39.8 kg/m2 02825.7 g Erum Graham CNA [employer] 09/14/2022 11:18:41 Date Recorded Body height Body mass index (BMI) Body weight Provider Name and Address Organization Details Last Updated DateTime 11/30/2022 149.86 cm 41.8 kg/m2 44485.62 leonid Graham CNA [place] Kaylene [facility] [employer] 11/30/2022 14:48:04 Date Recorded Body height Body mass index (BMI) Body weight Provider Name and Address Organization Details Last Updated DateTime 02/28/2023 149.86 cm 41.6 kg/m2 59829.03 g Erum Graham CNA [facility] 02/28/2023 10:07:55 Social History Question Answer Notes LastModified by [employer] Details LastModified Time Tobacco Smoking Status Former Smoker Not Available [employer] 06/22/2022 12:46:01 When Did You Quit Smoking? 1-5yearssinc elastcigaret te [id number] Information not available 06/22/2022 Sex: Unknown Functional Status Question Answer Note LastModified by [employer] Details LastModified Time What is your level of alcohol consumption? None [id number] Information not available 06/22/2022 Mental Status None recorded. Family History Relationship Description Onset Age of this Age Resolved Age Notes LastModified by Organization Details LastModified Time Mother Family history of malignant neoplasm [id number] Not available 06/22/2022 12:46:28 Mother Hypertensive disorder [id number] Not available 06/22/2022 12:46:28 Medical History Condition Response ARTHRITIS Y CANCER: SPECIFY Y HYPERTENSION Y Gynecological HistoryNo gynecological history recorded. Obstetrics History GPAL:G 0 P 0 0 0 0 Past Encounters Encounter ID Performer Location Encounter Start Date Encounter Closed Date Diagnosis/Indication Diagnosis SNOMED-CT Code Diagnosis ICD10 Code Diagnosis Note [id number] Doe Archer MD [facility] [place] [address] [place] [address] 04/22/2022 00:00:00 04/22/2022 13:57:00 [id number] Doe Archer MD [facility] [place] [address] [place] [address] 05/04/2022 00:00:00 05/04/2022 12:49:52 [id number] Doe Archer MD [facility] [place] [address] [place] [address] 05/11/2022 00:00:00 05/11/2022 11:14:56 [id number] Doe Archer MD [facility] [place] [address] [place] [address] 05/20/2022 00:00:00 05/23/2022 09:45:41 [id number] Doe Archer MD [facility] [place] [address] [place] [address] 06/10/2022 00:00:00 06/10/2022 14:24:14 [id number] Doe Arcehr MD [facility] [place] [address] [place] [address] 07/20/2022 11:44:58 07/20/2022 12:02:58 Closed fracture of distal end of radius 12752031 S52.502A [id number] Doe Archer MD [facility] [place] [address] [place] [address] 09/14/2022 11:13:40 09/14/2022 11:45:34 Closed fracture of distal end of radius 97652846 S52.502A [id number] Doe Archer MD [facility] [place] [address] [place] [address] 11/30/2022 14:45:23 11/30/2022 14:59:44 Closed fracture of distal end of radius 50899710 S52.501D [id number] Doe Archer MD [facility] [place] [address] [place] [address] 02/28/2023 10:03:21 02/28/2023 11:43:15 Pain of left hand 0313580018 16307 M79.642 Health Concerns Section Related Observation LastModified by Organization Detai ls LastModified Time None Recorded Concern Status LastModified by Organization Details LastModified Time None Recorded Advance Directives Directive None Recorded Payers Encounter Date Sequence Insurance Name Policy Number Policy Raines Covered Member ID Raines Member ID Guarantor Name 07/20/2022 1 [employer] (MEDICARE REPLACEMENT/A DVANTAGE - PPO) [id number] Lauren Martinez [id number] Lauren Dass 07/20/2022 2 [place] [facility] [place] Lauren Martinez [id number] Lauren Dass 09/14/2022 1 [employer] (MEDICARE REPLACEMENT/A DVANTAGE - PPO) [id number] Lauren Martinez [id number] Lauren Dass 09/14/2022 2 [place] [facility] [place] Lauren Martinez [id number] Lauren Martinez 11/30/2022 1 [employer] (MEDICARE REPLACEMENT/A DVANTAGE - PPO) [id number] Lauren Martinez [id number] Lauren Dass 11/30/2022 2 [place] [facility] Lauren Martinez [id number] Lauren Martinez 02/28/2023 1 [employer] (MEDICARE REPLACEMENT/[place] - [place]) [id number] Lauren Martinez [id number] Lauren Dass 02/28/2023 2 [place] [facility] Lauren Martinez [id number] Lauren Martinez OBGyn Episode No OBEpisode recorded.
--- NOTE | 2024-10-02 12:57 | PC.NURSE ---
Spoke with ultrasound, they state pts procedure may not be until tomorrow due to an outpatient and an inpatient procedure.
--- NOTE | 2024-10-02 13:35 | PC.NURSE ---
Contacted phlebotomy for assistance with difficult stick for blood cultures.
--- NOTE | 2024-10-02 14:22 | P.HP_ITS ---
H&P: HPI History of Present Illness Date/Time: 10/02/24 14:22 Chief Complaint: Shortness of Breath Narrative: 89 y/o F with PMH of non-small cell lung cancer (left upper lobe, currently undergoing radiation), COPD, breast cancer (left 2004, right 2005 s/p lumpectomy, radiation, endocrine therapy), and HTN presents here with shortness of breath. The patient presents here from home on 10/02 for further evaluation of shortness of breath. She has a significant oncology history including left breast cancer in 2004, right breast cancer in 2015, and non-small cell carcinoma of the left upper lobe. She is currently undergoing radiation with last treatment on 09/26/2024. She was scheduled for a radiation treatment today, however she sought treatment in the emergency department for shortness of breath. Shortness of breath has been ongoing for the past 5 days. She was initially evaluated on 09/27/2024 for a effusion which was found to be moderate size at this time. She did not need a thoracentesis completed emergently and she was instructed to follow up outpatient for this procedure. Now returning today due to worsening shortness of. CXR showed a [id number] left pleural effusion. She re ports significant improvement post-thoracentesis. Denies fever, chills, body aches, nausea, vomiting, or diarrhea. She reports she has had some intermittent hemoptysis for some time. Initial VS at presentation: 97.6? F, HR 93, RR 20, 149/91, and 91% on RA. Now 100% on 2L nasal cannula. ED workup showed: No leukocytosis, hemoglobin 10.6 (similar to previous on 09/27/2024), normal coags, no significant electrolyte derangements, creatinine 1.65 and GFR 29 (at baseline), BNP 922. CXR showed an increasing moderate to large left pleural effusion, increasing opacities in the left mid to upper and right lower lung zones which could represent atelectasis or pneumonia. EKG showed sinus rhythm with occasional PVCs with occasional supraventricular premature complexes, possible left atrial enlargement, borderline ST-T-wave abnormality, baseline artifact. No previous EKG available for comparison. Review of Systems Review of Systems: All systems reviewed & are unremarkable except as noted in HPI and below PMFSH Past Medical History Medical History Lung cancer (07/2024) Primary adenocarcinoma of the lung Fracture of radius, distal, right, closed COPD (chronic obstructive pulmonary disease) case management patient Kidney stones Breast cancer in female left, 2004. right, 2015. Hypertension Surgical History Surgical History History of total right hip arthroplasty 11/04 History of total left hip replacement 06/04 History of hysterectomy 1981 History of back surgery lumbar decompression 07/29 S/P lumpectomy, left breast 2002 History of hip replacement S/P lumpectomy, right breast 2014 Family History Family History Mother Carcinoma of colon Father Acute myocardial infarction Social History Social History Smoking packs per day: 0.5 Smoking cigarettes per day: 10.0 Years smoked: 15 Smoking pack-years: 7.50 Smoking status: Former smoker Tobacco type: cigarettes Smoking end date: 01/23/24 Alcohol intake: never Substance use: never Do You Feel Safe in your Home?: Yes Lack of Transportation: No Lack of Food: Never True Current Housing: I Have Housing Concerned About Future Housing: No Difficulty Paying Gas/Electric Bills: No Difficulty Paying for Meds: No Currently Unemployed: No Education: High School Diploma/GED Difficulty w/ Childcare or Family Care: No Gender identity (if verbalized by the patient): Female Spiritual care concerns: No Meds Home Medications and Allergies Home Medications ?Medication ?Instructions ?Recorded ?Confirmed ?Type NM VIT D3 (ALEJO) 2000IU TAB See Rx Instructions .Route 06/12/23 10/02/24 Rx .COMPLEX #90 tabs benzonatate 200 mg capsule 200 mg PO TID PRN cough #20 caps 10/18/23 10/02/24 Rx albuterol sulfate 90 mcg/actuation See Rx Instructions .Route 01/17/24 10/02/24 Rx aerosol inhaler .COMPLEX #9 grams alendronate 70 mg tablet 70 mg PO WEEKLY #13 tabs 03/25/24 10/02/24 Rx losartan 100 mg tablet See Rx Instructions .Route 08/19/24 10/02/24 Rx .COMPLEX #90 tabs hydrocodone 7.5 mg-acetaminophen 1 tablet PO QID PRN Pain #120 tabs 09/06/24 10/02/24 Rx 325 mg tablet hydrochlorothiazide 25 mg tablet See Rx Instructions .Route 09/30/24 10/02/24 Rx .COMPLEX #90 tabs exemestane 25 mg tablet 25 mg PO DAILY cough 10/02/24 10/02/24 History guaifenesin 600 mg tablet, 600 mg PO ONCE cough 10/02/24 10/02/24 History extended release 12 hr (Mucinex) Allergies Allergy/AdvReac Type Severity Reaction Status Date / Time No Known Allergies Allergy Verified 10/02/24 14:02 Vital Signs Vital Signs - 24 hr 10/02/24 10:01 10/02/24 10:04 10/02/24 10:19 Temperature 97.6 F Pulse Rate 93 88 Respiratory Rate 20 27 H Blood Pressure 149/91 H Pulse Oximetry 91 92 100 Oxygen Delivery Room Air Room Air Oxygen Flow Rate 10/02/24 10:56 10/02/24 10:56 10/02/24 11:43 Temperature Pulse Rate 83 Respiratory Rate 20 Blood Pressure Pulse Oximetry 87 L 98 97 Oxygen Delivery Room Air Nasal Cannula Oxygen Flow Rate 2 10/02/24 11:45 10/02/24 12:00 10/02/24 12:19 Temperature Pulse Rate 80 84 81 Respiratory Rate 23 H 21 H 23 H Blood Pressure Pulse Oximetry 98 96 100 Oxygen Delivery Oxygen Flow Rate 10/02/24 12:33 10/02/24 12:46 10/02/24 13:25 Temperature Pulse Rate 80 78 84 Respiratory Rate 24 H 22 H 24 H Blood Pressure 130/76 130/76 Pulse Oximetry 100 97 100 Oxygen Delivery Oxygen Flow Rate Exam Const: General: comfortable and no acute distress Other: , elderly, nontoxic appearance HENMT: Face/Nose/Sinus: Normal nares present Mouth: Yes moist mucous membranes Eyes: General: appearance normal, both eyes and all related structures Sclera: sclerae normal Pupils: Equal, round and reactive pupils present EOM: EOMs intact bilaterally Resp: Effort & Inspection: normal respiratory effort Other: Left sided crackles, nasal cannula place and tolerating well. Cardio: Rate: regular rate Rhythm: regular rhythm Other: S1-S2 present without murmur, rub, ectopy GI: Other: Abdomen soft, nondistended, nontender. Normoactive bowel sounds in all quadrants. Skin: General skin exam: normal color and no rashes or lesions noted Wounds: no wounds Neuro: Speech: normal speech Motor exam (neuro): 5/5 motor strength present throughout Sensory Exam: normal sensation Other: A&O x4 Extrem: Other: Trace edema to bilateral ankles, symmetric. Psych: Mental Status: mental status grossly normal Affect: normal affect Other: Good insight judgment, pleasant H&P: Results Labs Labs: Short CBC 10/02/24 Range/Units 10:08 WBC 6.1 (4.5-10.0) K/mm3 Hgb 10.6 L (12.0-15.0) g/dL Hct 34.9 L (37.0-47.0) % Plt Count 192 (150-375) k/mm3 BMP 10/02/24 10:08 Sodium 141 Potassium 3.5 Chloride 103 Carbon Dioxide 28 BUN 18 H Creatinine 1.65 H Glucose 105 Calcium 9.6 Liver Function 10/02/24 Range/Units 10:08 Total Bilirubin 0.5 (0.2-1.3) mg/dL AST 22 (14-36) U/L ALT 8 (6-35) U/L Alkaline Phosphatase 79 (38-126) U/L Albumin 4.3 (3.5-5.1) g/dL Assessment and Plan Assessment and plan (1) Pleural effusion: Code(s): J90 - Pleural effusion, not elsewhere classified Status: Acute Assessment and Plan: - CXR, 10/02: 1. Increasing moderate to large left pleural effusion. 2. Increasing opacities in the left mid to upper and right lower lung zones which could represent atelectasis or pneumonia. - CXR 09/27: 1: Left midthoracic mass, compatible with bronchogenic carcinoma until proven otherwise. 2: Moderate left pleural effusion. 3: Right basilar atelectasis. - plan for diagnostic thoracentesis on 10/02 - continue supplemental O2 to maintain O2 saturation greater than 92%, wean as tolerated - started on ceftriaxone and azithromycin on 10/02 for possible compressive/obstructive pneumonia - BNP mildly elevated 922, check echo. monitor I&Os and daily weights. will hold on diuresis until echo results. - DDx: Malignant effusion vs exudative effusion vs transudative (2) Lung cancer: Onset Date: 07/2024 Qualifiers: Laterality: left Lung location: upper lobe of lung Qualified Code(s): C34.12 - Malignant neoplasm of upper lobe, left bronchus or lung Code(s): C34.90 - Malignant neoplasm of unspecified part of unspecified bronchus or lung Status: Acute Assessment and Plan: - currently undergoing radiation, last treatment on 09/26. next scheduled today (10/02) (3) Chronic kidney disease, stage 3a: Onset Date: 11/2020 Code(s): N18.31 - Chronic kidney disease, stage 3a Status: Chronic Assessment and Plan: - creatinine 1.65 and GFR 29, previously 1.85 and GFR 26 on 09/27 - trend renal function - trend electrolytes, correct as needed (4) Hypertension: Qualifiers: Hypertension type: primary hypertension Qualified Code(s): I10 - Essential (primary) hypertension Code(s): I10 - Essential (primary) hypertension Status: Chronic Assessment and Plan: - chronic, [id number] - continue home medications: Losartan, hydrochlorothiazide - monitor Plan Diet: Heart healthy GI Prophylaxis: Not currently indicated DVT Prophylaxis: SCDs IV fluids: None Lines/Tubes: Peripheral IV Code Status: Full code Quality VTE Prophylaxis VTE prophylaxis: mechanical ordered Hospitalist MIPS Advance Care Plan I have confirmed that the patient's Advanced Care Plan is present, code status is documented, or surrogate decision maker is listed in patient medical record.: Yes Medication Reconciliation I have utilized all available resources to obtain, update and review the patients current medications (includes all prescriptions, OTC, herbals, cannabis, and nutritional supplements).: Yes
--- NOTE | 2024-10-02 15:19 | CY_PTH ---
PATIENT: Lauren Martinez LOC: [id number] U#:[id number] AGE/SX: 89/F ROOM: 257 RE10/03/[address]: Gilma Xiong PA-C : 1935 BED: 01 DIS: 10/08/2024 SPEC #: [id number] RECD: 10/03/24 07:58 STATUS: YVONNE GONZALEZ #: [id number] [place]: 10/02/24 15:[address]: Nagi Barth DEPT: [facility] Cytology RECD BY: Jacqueline Flores ENTERED: 10/03/24 07:58 SP TYPE: Cytology OT DR: MD Gilma Kelly PA-C UNKNOWN,DOCTOR Tissues: A - Pleural Fluid Procedures: Otoole Keratin TTF Hematoxylin and Eosin Stain Cell Block [id number] Cytopathology Cytospin Napsin A
[2024-10-02] MEDS: AZITHROMYCIN 500 MG/NS 250 ML 500 MG/250 ML BAG 250 MG IVPB (15:30)
--- NOTE | 2024-10-02 15:34 | PC.NURSE ---
Per report for thoracentesis, patient had 1000ml taken off during procedure. dressing dry and intact.
[2024-10-02 15:50] LABS: pH Pleural Fluid 7.355 (7.210-7.500)
[2024-10-02 16:26] LABS: Appearance Pleural Fluid Bloody (Clear); Color Pleural Fluid Red (Colorless); Nucleated Cell Pleural Fluid 2620 /uL (0-1000); Pleural fluid source Pleural fluid
[2024-10-02 16:27] LABS: RBC Pleural Fluid 1275000 /uL (0-10000)
[2024-10-02 16:28] LABS: Lymphocytes Pleural Fluid 6 %; Macrophages Pleural Fluid 15 %; Monocytes Pleural Fluid 1 %; Neutrophils Pleural Fluid 75 % (0-25)
[2024-10-02] MEDS: HYDROcodone/acetaminophen (*CRX) 5-325 MG TABLET 1 TAB PO (17:45)
--- NOTE | 2024-10-03 | ECHO_ITS ---
Patient Info Name: Lauren Martinez Age: 89 years : 1935 Gender: Female Ht: 59 in Wt: 177 lbs BSA: 1.87 m2 HR: 90 bpm BP: 117 / 67 mmHg Technical Quality: Good Exam Date: 10/03/2024 7:49 AM Patient Status: I Admit Date: 10/03/2024 Exam Type: CA echo doppler color flow Complete two-dimensional, color flow and Doppler transthoracic echocardiogram is performed. Staff Referring Physician: Nagi Barth MD Digital Associate: Emilee Nick Attending Provider: Gilma Xiong Summary 1. Complete two-dimensional, color flow and Doppler transthoracic echocardiogram is performed. 2. There is normal biventricular size and systolic function. 3. There is no significant valvular abnormalities. 4. There are no definite evidence of endocarditis. If clinical suspicion is high, can consider transesophageal echocardiogram. Left Ventricle The left ventricle is normal in size and systolic function. There is concentric left ventricular remodeling. The left ventricular ejection fraction is visually estimated to be 60-65%. Right Ventricle The right ventricle is normal in size and systolic function. Left Atria The left atrium is normal size. Right Atria The right atrium is normal size. Atrial Septum The atrial septum is intact by color Doppler. Aortic Valve There is no aortic stenosis. There is no aortic regurgitation. Pulmonic Valve The pulmonic valve is not well visualized. There is no color Doppler evidence of pulmonic valve regurgitation. Mitral Valve There is mitral annular calcification. There is no mitral stenosis. There is mild mitral regurgitation. Tricuspid Valve The tricuspid valve is grossly normal. There is mild tricuspid regurgitation. Pericardium/Pleural There is trace pericardial effusion. Inferior Vena Cava Inferior vena cava is not well visualized. Aorta The aortic root at the level of the sinus of Valsalva measures 3.3 cm in diameter. Left Ventricular Outflow Tract Name Value Normal LVOT 2D LVOT Diameter 2.0 cm LVOT Doppler LVOT Peak Velocity 118 cm/s LVOT Peak Gradient 6 mmHg LVOT Mean Gradient 3 mmHg LVOT VTI 18 cm LVOT VTI/AV VTI Ratio 0.7 LVOT Stroke Volume 54 ml LVOT CO 4.7 l/min LVOT CI 2.5 l/min/m2 Pulmonic Valve Name Value Normal PV Doppler PV Peak Velocity 103 cm/s PV Peak Gradient 4 mmHg Mitral Valve Name Value Normal MV Doppler MV Peak Gradient 7 mmHg MV Mean Gradient 2 mmHg MV Area (Cont Eq VTI) 1.6 cm2 MV Regurgitation Doppler MR Peak Gradient 89 mmHg MV Diastolic Function MV E Peak Velocity 75 cm/s MV A Peak Velocity 127 cm/s MV E/A 0.6 MV Decel Time (PW) 394 ms MV Annular TDI MV E/e' (Septal) 6.9 MV E/e' (Lateral) 8.2 MV E/e' (Average) 7.5 Tricuspid Valve Name Value Normal TV Regurgitation Doppler TR Peak Velocity 277 cm/s TR Peak Gradient 26 mmHg Estimated PAP/RSVP RA Pressure 10 mmHg <=5 PA Systolic Pressure 41 mmHg <36 RV Systolic Pressure 41 mmHg <36 TV Annular TDI TV Lateral Haleigh s' Velocity 11.7 cm/s >=9.5 Aortic Valve Name Value Normal AV Doppler AV Peak Velocity 157 cm/s AV Peak Gradient 10 mmHg AV Mean Gradient 5 mmHg AV VTI 25 cm AV Area (Cont Eq VTI) 2.2 cm2 >=3.0 AV Area (Cont Eq Sebastian) 2.3 cm2 AV DI (Sebastian) 0.75 AV Regurgitation 2D LVOT Area 3.0 cm2 Ventricles Name Value Normal LV Dimensions 2D/MM IVS Diastolic Thickness (2D) 1.0 cm 0.6-1.0 LVID Diastole (2D) 4.0 cm 3.8-5.2 LVIW Diastolic Thickness (2D) 1.0 cm 0.6-0.9 LVID Systole (2D) 2.7 cm 2.2-3.5 LVOT Diameter 2.0 cm LV Mass (2D Cubed) 131.91 g 67.00-162.00 LV Mass Index (2D Cubed) 71 g/m2 43-95 Relative Wall Thickness (2D) 0.50 <=0.42 LV Fractional Shortening/Ejection Fraction 2D/MM LV Fractional Shortening (2D) 34 % 27-45 LV EF (2D Teichholz) 64 % LV Diastolic Volume (4C MOD) 59 ml LV EF (4C MOD) 54 % LV Diastolic Volume (2C MOD) 71 ml LV EF (2C MOD) 63 % LV Diastolic Volume (BP MOD) 66 ml 46-106 LV Diastolic Volume Index (BP MOD) 36 ml/m2 29-61 LV Systolic Volume (BP MOD) 27 ml 14-42 LV Systolic Volume Index (BP MOD) 14 ml/m2 8-24 LV EF (BP MOD) 60 % 54-74 LV Diastolic Length (4C) 7.6 cm LV Systolic Length (4C) 6.3 cm LV Stroke Volume (4C MOD) 32 ml Atria Name Value Normal LA Dimensions LA Volume (4C A-L) 43 ml LA Volume (BP A-L) 45 ml RA Dimensions RA Systolic Major [place] Length (4C) 4.9 cm 2.2-2.8 RA Area (4C) 13.2 cm2 <=18.0 Report Signatures Amended by Femi Beck on 10/03/2024 03:20 PM
[2024-10-03 05:55] LABS: Basophils Percent Auto 0.5 % (0.2-1.2); Eosinophils Absolute Auto 0.2 K/mm3 (0-0.3); Eosinophils Percent Auto 3.2 % (0-4.4); Hematocrit 31.8 % (37.0-47.0); Hemoglobin 9.9 g/dL (12.0-15.0); Immature Granulocyte Absolute 0.01 K/mm3 (0.00-0.031); Immature Granulocyte Percent A 0.2 % (0-0.5); Lymphocytes Absolute Auto 0.91 K/mm3 (0.9-3.2); Lymphocytes Percent Auto 14.6 % (18.3-44.2); Mean Corpuscular HGB Conc 31.1 g/dl (32-36); Mean Corpuscular Hemoglobin 27.6 pg (26-34); Mean Corpuscular Volume 88.6 fl (80-100); Monocytes Absolute Auto 0.5 K/mm3 (0.1-0.6); Monocytes Percent Auto 8.2 % (2.6-8.5); Neutrophils Absolute Auto 4.6 K/mm3 (1.3-6.7); Neutrophils Percent Auto 73.3 % (45.5-73.1); Platelet Count Result 180 k/mm3 (150-375); Red Blood Count 3.59 M/mm3 (4.2-5.4); Red Cell Distribution Width 15.7 % (11.5-14.5); White Blood Count 6.2 K/mm3 (4.5-10.0)
[2024-10-03 06:05] LABS: Alanine Aminotransferase 7 U/L (6-35); Albumin Level 3.9 g/dL (3.5-5.1); Alkaline Phosphatase 78 U/L (38-126); Anion Gap 9 mmol/L (4-12); Aspartate Amino Transferase 21 U/L (14-36); Bilirubin,Total 0.6 mg/dL (0.2-1.3); Blood Urea Nitrogen 16 mg/dL (7-17); Calcium 9.5 mg/dL (8.4-10.2); Carbon Dioxide 27 mmol/L (22-30); Chloride 104 mmol/L (98-107); Estimated Glomerular Filt Rate 33; Glucose 94 mg/dL (65-110); Potassium 3.7 mmol/L (3.4-5.0); Sodium 140 mmol/L (137-145); Total Protein 6.9 g/dL (6.3-8.2)
[2024-10-03 09:15] VITALS: O2SAT 94
[2024-10-03] MEDS: LOSARTAN POTASSIUM 100 MG TABLET PO (09:17)
[2024-10-03] MEDS: ACETAMINOPHEN 325 MG TABLET 650 MG PO (09:17)
[2024-10-03] MEDS: hydroCHLOROthiazide 25 MG TABLET PO (09:17)
[2024-10-03] MEDS: AZITHROMYCIN 500 MG/NS 250 ML 500 MG/250 ML BAG 250 MG IVPB (09:18)
--- NOTE | 2024-10-03 09:26 | PM.IMPN ---
Progress Note: A&P Assessment and Plan (1) Acute respiratory failure with hypoxia: Code(s): J96.01 - Acute respiratory failure with hypoxia Status: Acute Assessment and Plan: Spo2 87% on room air, requiring 2L on admission. Likely secondary to patients worsening effusion as seen on imaging. - Oxygen supplementation: 1 L NC, baseline RA. Continue to wean as tolerated to maintain spo2 > 90% - CXR, 10/02: 1. Increasing moderate to large left pleural effusion. 2. Increasing opacities in the left mid to upper and right lower lung zones which could represent atelectasis or pneumonia. - See plan for pleural effusion below (2) Pleural effusion: Code(s): J90 - Pleural effusion, not elsewhere classified Status: Acute Assessment and Plan: - DDx: Malignant effusion vs exudative effusion vs transudative - CXR 09/27: 1: Left midthoracic mass, compatible with bronchogenic carcinoma until proven otherwise. 2: Moderate left pleural effusion. 3: Right basilar atelectasis. - CXR, 10/02: 1. Increasing moderate to large left pleural effusion. 2. Increasing opacities in the left mid to upper and right lower lung zones which could represent atelectasis or pneumonia. - s/p diagnostic thoracentesis on 10/02 with 1L blood dark maroon colored fluid removed. Repeat CXR showed improvement. - continue supplemental O2 to maintain O2 saturation greater than 90%, wean as tolerated - started on ceftriaxone and azithromycin on 10/02 for possible compressive/obstructive pneumonia. Sputum culture ordered. - BNP mildly elevated 922, echo showed LVEF 60-65% and normal biventricular size. monitor I&Os and daily weights. (3) Lung cancer: Onset Date: 07/2024 Qualifiers: Laterality: left Lung location: upper lobe of lung Qualified Code(s): C34.12 - Malignant neoplasm of upper lobe, left bronchus or lung Code(s): C34.90 - Malignant neoplasm of unspecified part of unspecified bronchus or lung Status: Acute Assessment and Plan: - currently undergoing radiation, last treatment on 09/26. next scheduled 10/02 however missed appointment as she sought treatment in the ED for SOB (4) Chronic kidney disease, stage 3a: Onset Date: 11/2020 Code(s): N18.31 - Chronic kidney disease, stage 3a Status: Chronic Assessment and Plan: - creatinine 1.65 and GFR 29 on admission, previously 1.85 and GFR 26 on 09/27. Appears at baseline. - trend renal function - monitor I/O - avoid nephrotoxic medications - renally dose medications - trend electrolytes, correct as needed (5) Hypertension: Qualifiers: Hypertension type: primary hypertension Qualified Code(s): I10 - Essential (primary) hypertension Code(s): I10 - Essential (primary) hypertension Status: Chronic Assessment and Plan: - chronic, continue home medications - Losartan 100 mg daily, hydrochlorothiazide 25 mg - stable, continue to monitor Time Spent With Patient Time with patient: 25 - 35 minutes Subjective Date/time seen: 10/03/24 09:26 Interval history: 89 yeawr old female with past medical history of non-small cell lung cancer (left upper lobe, currently undergoing radiation), COPD, breast cancer (left 2004, right 2005 s/p lumpectomy, radiation, endocrine therapy), and HTN presents to the hospital with shortness of breath. Patient is pleasant lying comfortably in bed with daughter at bedside. She remains on 1 L nasal cannula but notes that her shortness of breath has much improved since the thoracentesis. She notes increased dyspnea with exertion. She denies any productive cough this time but does note that she has phlegm production upon waking up. She has no other complaints denying chest pain, palpitations, nausea/vomiting, abdominal pain, and dizziness/lightheadedness with ambulation. Review of Systems Review of Systems: All systems reviewed & are unremarkable except as noted in HPI and below Exam Narrative: AF HR 62 RR 18 SpO2 95 1L NC (baseline RA) BP 125/62 General: female in no acute respiratory distress who is nontoxic appearing, lying semi recumbent in bed. HEENT: Normocephalic. Atraumatic. Extraocular movement intact. Sclera clear and anicteric. No facial asymmetry. Chest: Lungs are course to auscultation bilaterally to lower bases, worse on left. CV: Heart was regular rate and rhythm. S1-S2. No murmurs, gallops, or rubs. Abd: Abdomen was soft. Nontender. Nondistended. Positive bowel sounds. Ext: No clubbing, cyanosis, or edema. DP pulses bilaterally. Neuro: Patient is alert and oriented x3. Speech is clear. Objective Data Vital Signs Vital Signs: Vital Signs - 24 hr 10/02/24 10:01 10/02/24 10:04 10/02/24 10:19 Temperature 97.6 F Pulse Rate 93 88 Respiratory Rate 20 27 H Blood Pressure 149/91 H Pulse Oximetry 91 92 100 Oxygen Delivery Room Air Room Air Oxygen Flow Rate Fraction of Inspired Oxygen 10/02/24 10:56 10/02/24 10:56 10/02/24 11:43 Temperature Pulse Rate 83 Respiratory Rate 20 Blood Pressure Pulse Oximetry 87 L 98 97 Oxygen Delivery Room Air Nasal Cannula Oxygen Flow Rate 2 Fraction of Inspired Oxygen 10/02/24 11:45 10/02/24 12:00 10/02/24 12:19 Temperature Pulse Rate 80 84 81 Respiratory Rate 23 H 21 H 23 H Blood Pressure Pulse Oximetry 98 96 100 Oxygen Delivery Oxygen Flow Rate Fraction of Inspired Oxygen 10/02/24 12:33 10/02/24 12:46 10/02/24 12:54 Temperature Pulse Rate 80 78 80 Respiratory Rate 24 H 22 H 23 H Blood Pressure 130/76 Pulse Oximetry 100 97 98 Oxygen Delivery Oxygen Flow Rate Fraction of Inspired Oxygen 10/02/24 13:08 10/02/24 13:15 10/02/24 13:25 Temperature Pulse Rate 88 89 84 Respiratory Rate 25 H 24 H 24 H Blood Pressure 130/76 Pulse Oximetry 100 100 Oxygen Delivery Oxygen Flow Rate Fraction of Inspired Oxygen 10/02/24 13:30 10/02/24 13:45 10/02/24 14:00 Temperature Pulse Rate 84 86 87 Respiratory Rate 25 H 27 H 14 Blood Pressure Pulse Oximetry 97 Oxygen Delivery Oxygen Flow Rate Fraction of Inspired Oxygen 10/02/24 14:15 10/02/24 14:16 10/02/24 15:00 Temperature Pulse Rate 86 88 Respiratory Rate 18 14 Blood Pressure 126/83 Pulse Oximetry 98 99 Oxygen Delivery Nasal Cannula Oxygen Flow Rate 1 Fraction of Inspired Oxygen 10/02/24 15:23 10/02/24 20:00 10/02/24 20:06 Temperature Pulse Rate 89 81 Respiratory Rate 20 20 Blood Pressure 134/73 Pulse Oximetry 99 91 91 Oxygen Delivery Nasal Cannula Nasal Cannula Oxygen Flow Rate 1 1 Fraction of Inspired Oxygen 24 10/02/24 22:00 Temperature 98.6 F Pulse Rate 90 Respiratory Rate 18 Blood Pressure 117/67 Pulse Oximetry 99 Oxygen Delivery Oxygen Flow Rate Fraction of Inspired Oxygen Intake/Output Intake/Output: Intake & Output 09/30/24 10/01/24 10/02/24 10/03/24 23:59 23:59 23:59 23:59 Intake Total 290 120 Output Total 1000 Balance -710 120 Meds/Results Medications: Active Medications Generic Name Dose Route Start Last Admin Trade Name Freq PRN Reason Stop Dose Admin Acetaminophen 650 mg 10/02/24 14:06 10/03/24 09:17 Acetaminophen 325 Mg Tablet PO 650 mg Q4H PRN Administration Mild Pain (1-3) or Fever Hydrocodone Bitart/Acetaminophen 1 tab 10/02/24 14:06 10/02/24 17:45 Hydrocodone/Acetaminophen (*Crx) 5-325 Mg Tablet PO 1 tab Q4H PRN Administration Pain Rated 4-6 Albuterol 2 puff 10/02/24 22:50 Albuterol Sulfate (*Sp) Aerosol 1 Puff INHALATION Q12H PRN Shortness Of Breath Alendronate Sodium 70 mg 10/08/24 07:30 Alendronate Sodium 70 Mg Tablet PO Tu@0730 LANDY Guaifenesin 600 mg 10/02/24 22:52 Guaifenesin 12 Hr 600 Mg Tabcr PO Q12HR PRN Congestion Hydrochlorothiazide 25 mg 10/03/24 09:00 10/03/24 09:17 Hydrochlorothiazide 25 Mg Tablet PO 25 mg DAILY LANDY Administration Ceftriaxone Sodium 1 gm in 50 mls @ 100 mls/hr 10/03/24 10:00 Rocephin 1 Gm/Ns 50 Ml IVPB Q24H LANDY Azithromycin 500 mg in 250 mls @ 250 mls/hr 10/03/24 09:00 10/03/24 09:18 Zithromax IVPB 250 mls/hr Q24H LANDY Administration Losartan Potassium 100 mg 10/03/24 09:00 10/03/24 09:17 Losartan Potassium 100 Mg Tablet PO 100 mg DAILY LANDY Administration Miscellaneous Information 0 each 10/02/24 23:10 Exemestane 25 Mg Tablet- Nonformulary. Please Send To Pharmacy For Verification When Home XX 11/01/24 23:09 CLARIFY LANDY Morphine Sulfate 2 mg 10/02/24 14:06 Morphine Sulfate (*Crx) 2 Mg/Ml Inj IV PUSH Q2H PRN Pain Rated 7-10 Non-Formulary Medication 25 mg 10/03/24 09:00 Exemestane PO 11/02/24 08:59 DAILY LANDY Perflutren Lipid Microsphere 0 ml 10/02/24 14:02 Perflutren Lipid Microspheres 1.5 Ml Vial Diluted To 10 Ml Total Volume IV PUSH 10/05/24 14:03 ONCE PRN adequate visualization Protocol Promethazine HCl 12.5 mg 10/02/24 14:06 Promethazine Hcl 25 Mg/Ml Ampul IV PUSH Q6H PRN Nausea Radiology Results: ITS Impressions Chest X-Ray 10/02/24 15:49 Impression: 1: Decreased left pleural effusion post thoracentesis with no evidence for pneumothorax. Thoracentesis Ultrasound 10/02/24 17:17 IMPRESSION: 1. Successful ultrasound-guided thoracentesis yielding 1000 mL of bloody dark maroon-colored fluid. Labs Labs: Laboratory Results - last 24 hr 10/02/24 10/02/24 10/02/24 10:06 10:08 14:24 WBC 6.1 RBC 3.90 L Hgb 10.6 L Hct 34.9 L MCV 89.5 MCH 27.2 MCHC 30.4 L RDW 15.9 H Plt Count 192 MPV 10.4 Immature Gran % (Auto) 0.3 Neut % (Auto) 73.3 H Lymph % (Auto) 14.9 L Mcintosh % (Auto) 7.0 Eos % (Auto) 3.8 Baso % (Auto) 0.7 Lymph # (Auto) 0.91 Mcintosh # (Auto) 0.4 Eos # (Auto) 0.2 Baso # (Auto) 0.0 Abs Immat Gran (auto) 0.02 Absolute Neuts (auto) 4.5 Absolute Nucleated RBC 0.000 Nucleated RBC % 0.0 PT 14.6 INR 1.1 APTT 28.4 Sodium 141 Potassium 3.5 Chloride 103 Carbon Dioxide 28 Anion Gap 10 BUN 18 H Creatinine 1.65 H Estim Creat Clear Calc Not Reportable Estimated GFR 29 L Glucose 105 Calcium 9.6 Total Bilirubin 0.5 AST 22 ALT 8 Alkaline Phosphatase 79 NT-Pro-B Natriuret Pep 922 H Total Protein 7.6 Albumin 4.3 Pleural Fluid Source Pleural fluid Pleural Color Red Pleural Appearance Bloody Pleural pH 7.355 Pleural RBC [id number] H Pleural Nuc Cells 2620 H Pleural Neutrophils 75 H Pleural Lymphocytes 6 Pleural Monocytes 1 Pleural Macrophages 15 10/03/24 05:09 WBC 6.2 RBC 3.59 L Hgb 9.9 L Hct 31.8 L MCV 88.6 MCH 27.6 MCHC 31.1 L RDW 15.7 H Plt Count 180 MPV 11.0 H Immature Gran % (Auto) 0.2 Neut % (Auto) 73.3 H Lymph % (Auto) 14.6 L Mcintosh % (Auto) 8.2 Eos % (Auto) 3.2 Baso % (Auto) 0.5 Lymph # (Auto) 0.91 Mcintosh # (Auto) 0.5 Eos # (Auto) 0.2 Baso # (Auto) 0.0 Abs Immat Gran (auto) 0.01 Absolute Neuts (auto) 4.6 Absolute Nucleated RBC 0.000 Nucleated RBC % 0.0 PT INR APTT Sodium 140 Potassium 3.7 Chloride 104 Carbon Dioxide 27 Anion Gap 9 BUN 16 Creatinine 1.51 H Estim Creat Clear Calc Not Reportable Estimated GFR 33 L Glucose 94 Calcium 9.5 Total Bilirubin 0.6 AST 21 ALT 7 Alkaline Phosphatase 78 NT-Pro-B Natriuret Pep Total Protein 6.9 Albumin 3.9 Pleural Fluid Source Pleural Color Pleural Appearance Pleural pH Pleural RBC Pleural Nuc Cells Pleural Neutrophils Pleural Lymphocytes Pleural Monocytes Pleural Macrophages Quality VTE Prophylaxis VTE prophylaxis: mechanical ordered
[2024-10-03 09:37] VITALS: O2SAT 91
[2024-10-03 09:41] VITALS: BP 116/67; PULSE 98; RESP 22; TEMP 37; O2SAT 94
[2024-10-03 11:12] VITALS: BMI 36.2
--- NOTE | 2024-10-03 13:44 | P.CDI_ITS ---
CDI Query Clarification Request BMI: 36.2 Nutritional Diagnostic Statement: Please refer to the comprehensive nutrition assessment for further information. If you agree with diagnosis of Moderate Protein Calorie Malnutrition as related to inadequate energy intake as evidenced by poor po intake reported, moderate subcutaneous fat loss (orbital fat pads); mild muscle wasting (temporalis) and weight loss of 20 ibs (10%) in 3 months. Please specify severity if known: * Mild * Moderate * Severe * Other/Unknown <Kim Villalta RN - Last Filed: 10/03/24 13:44> Clarified Diagnosis Clarified Diagnosis: moderate protein calorie malnutrition <Gilma Xiong PA-C - Last Filed: 10/03/24 14:17>
[2024-10-03 13:52] VITALS: BP 125/62; PULSE 62; RESP 18; TEMP 36.6; O2SAT 95
[2024-10-03] MEDS: VANCOMYCIN 2,000 MG/NS 500 ML 2,000 MG/500 ML BAG 250 MG IVPB (16:17)
[2024-10-03 16:36] LABS: MRSA (PCR) NOT DETECTED (NOT DETECTE)
[2024-10-03 19:52] VITALS: BP 123/78; PULSE 94; RESP 22; TEMP 37.4; O2SAT 100
[2024-10-03 20:00] VITALS: O2SAT 100
[2024-10-04] VITALS (8 sets, daily range): BP systolic 93–122; BP diastolic 49–67; PULSE 63–92; RESP 16–18; TEMP 36.7–37.2; O2SAT 91–99
[2024-10-04] MEDS: HYDROcodone/acetaminophen (*CRX) 5-325 MG TABLET 1 TAB PO ×2 (02:22→16:56)
[2024-10-04 06:01] LABS: Hematocrit 30.4 % (37.0-47.0); Hemoglobin 9.2 g/dL (12.0-15.0); Mean Corpuscular HGB Conc 30.3 g/dl (32-36); Mean Corpuscular Hemoglobin 27.1 pg (26-34); Mean Corpuscular Volume 89.7 fl (80-100); Mean Platelet Volume 10.9 fl (7.4-10.4); Platelet Count Result 174 k/mm3 (150-375); Red Blood Count 3.39 M/mm3 (4.2-5.4); Red Cell Distribution Width 15.5 % (11.5-14.5); White Blood Count 7.1 K/mm3 (4.5-10.0)
[2024-10-04 06:18] LABS: Alanine Aminotransferase 6 U/L (6-35); Albumin Level 3.6 g/dL (3.5-5.1); Alkaline Phosphatase 74 U/L (38-126); Anion Gap 8 mmol/L (4-12); Aspartate Amino Transferase 21 U/L (14-36); Bilirubin,Total 0.4 mg/dL (0.2-1.3); Blood Urea Nitrogen 18 mg/dL (7-17); Calcium 9.3 mg/dL (8.4-10.2); Carbon Dioxide 26 mmol/L (22-30); Chloride 106 mmol/L (98-107); Estimated Glomerular Filt Rate 31; Glucose 98 mg/dL (65-110); Potassium 3.8 mmol/L (3.4-5.0); Sodium 140 mmol/L (137-145); Total Protein 6.5 g/dL (6.3-8.2)
--- NOTE | 2024-10-04 08:11 | PM.IMPN ---
Progress Note: A&P Assessment and Plan (1) Bacteremia: Code(s): R78.81 - Bacteremia Status: Acute Assessment and Plan: Blood culture growing staph haemolytics in one bottle thus far. Started on vancomycin on 10/03. Continue to monitor cultures. Repeat cultures on 10/04. Discussed with Dr. Beck, cardiology to reread echo to rule out endocarditis. Reread of echo showed no definite evidence of endocarditis. If repeat culture remains positive will consider a LIVIA to further assess (2) Acute respiratory failure with hypoxia: Code(s): J96.01 - Acute respiratory failure with hypoxia Status: Acute Assessment and Plan: Spo2 87% on room air, requiring 2L on admission. Likely secondary to patients worsening effusion as seen on imaging. - Oxygen supplementation: 1 L NC, baseline RA. Continue to wean as tolerated to maintain spo2 > 90% - CXR, 10/02: 1. Increasing moderate to large left pleural effusion. 2. Increasing opacities in the left mid to upper and right lower lung zones which could represent atelectasis or pneumonia. - Patient will require a home O2 eval prior to discharge - See plan for pleural effusion below (3) Pleural effusion: Code(s): J90 - Pleural effusion, not elsewhere classified Status: Acute Assessment and Plan: - DDx: Malignant effusion vs exudative effusion vs transudative - CXR 09/27: 1: Left midthoracic mass, compatible with bronchogenic carcinoma until proven otherwise. 2: Moderate left pleural effusion. 3: Right basilar atelectasis. - CXR, 10/02: 1. Increasing moderate to large left pleural effusion. 2. Increasing opacities in the left mid to upper and right lower lung zones which could represent atelectasis or pneumonia. - s/p diagnostic thoracentesis on 10/02 with 1L blood dark maroon colored fluid removed. Repeat CXR showed improvement. - continue supplemental O2 to maintain O2 saturation greater than 90%, wean as tolerated - started on ceftriaxone and azithromycin on 10/02 for possible compressive/obstructive pneumonia. Sputum culture ordered. - BNP mildly elevated 922, echo showed LVEF 60-65% and normal biventricular size. monitor I&Os and daily weights. Patient remains on 1 L nasal cannula. She states that shortness of breath has improved. Will obtain a repeat chest x-ray in the morning to further assess effusion. (4) Lung cancer: Onset Date: 07/2024 Qualifiers: Laterality: left Lung location: upper lobe of lung Qualified Code(s): C34.12 - Malignant neoplasm of upper lobe, left bronchus or lung Code(s): C34.90 - Malignant neoplasm of unspecified part of unspecified bronchus or lung Status: Acute Assessment and Plan: - currently undergoing radiation, last treatment on 09/26. next scheduled 10/02 however missed appointment as she sought treatment in the ED for SOB (5) Chronic kidney disease, stage 3a: Onset Date: 11/2020 Code(s): N18.31 - Chronic kidney disease, stage 3a Status: Chronic Assessment and Plan: - creatinine 1.65 and GFR 29 on admission, previously 1.85 and GFR 26 on 09/27. Appears at baseline. - trend renal function - monitor I/O - avoid nephrotoxic medications - renally dose medications - trend electrolytes, correct as needed (6) Hypertension: Qualifiers: Hypertension type: primary hypertension Qualified Code(s): I10 - Essential (primary) hypertension Code(s): I10 - Essential (primary) hypertension Status: Chronic Assessment and Plan: - chronic, continue home medications - Losartan 100 mg daily, hydrochlorothiazide 25 mg - stable, continue to monitor Time Spent With Patient Time with patient: 25 - 35 minutes Subjective Date/time seen: 10/04/24 08:11 Interval history: 89 yeawr old female with past medical history of non-small cell lung cancer (left upper lobe, currently undergoing radiation), COPD, breast cancer (left 2004, right 2005 s/p lumpectomy, radiation, endocrine therapy), and HTN presents to the hospital with shortness of breath. Patient is pleasant lying comfortably in bed. She states that her shortness of breath has much improved but continues to have an intermittent cough worse in the morning. Her care coordination patient was endorsing weakness. Will obtain a PT OT eval to further assess. She has no other complaints denying chest pain, palpitations, nausea/vomiting, abdominal pain, and dizziness/lightheadedness. Review of Systems Review of Systems: All systems reviewed & are unremarkable except as noted in HPI and below Exam Narrative: AF HR 89 RR 18 SPO2 96 1L NC (room air baseline) BP 116/67 General: female in no acute respiratory distress who is nontoxic appearing, lying semi recumbent in bed. HEENT: Normocephalic. Atraumatic. Extraocular movement intact. Sclera clear and anicteric. No facial asymmetry. Chest: Lungs with rhonchi to auscultation bilaterally to lower bases, worse on left. CV: Heart was regular rate and rhythm. S1-S2. No murmurs, gallops, or rubs. Abd: Abdomen was soft. Nontender. Nondistended. Positive bowel sounds. Ext: No clubbing, cyanosis, or edema. DP pulses bilaterally. Neuro: Patient is alert and oriented x3. Speech is clear. Objective Data Vital Signs Vital Signs: Vital Signs - 24 hr 10/03/24 09:15 10/03/24 09:37 10/03/24 09:41 Temperature 98.6 F Pulse Rate 98 Respiratory Rate 22 H Blood Pressure 116/67 Pulse Oximetry 94 91 94 Oxygen Delivery Nasal Cannula Nasal Cannula Oxygen Flow Rate 1 1 10/03/24 13:52 10/03/24 19:52 10/03/24 20:00 Temperature 97.8 F 99.4 F Pulse Rate 62 94 Respiratory Rate 18 22 H Blood Pressure 125/62 123/78 Pulse Oximetry 95 100 100 Oxygen Delivery Nasal Cannula Oxygen Flow Rate 1 10/04/24 05:02 Temperature 98.1 F Pulse Rate 91 Respiratory Rate 18 Blood Pressure 122/67 Pulse Oximetry 95 Oxygen Delivery Oxygen Flow Rate Intake/Output Intake/Output: Intake & Output 10/01/24 10/02/24 10/03/24 10/04/24 23:59 23:59 23:59 23:59 Intake Total 290 1130 450 Output Total 1000 Balance -710 1130 450 Meds/Results Medications: Active Medications Generic Name Dose Route Start Last Admin Trade Name Freq PRN Reason Stop Dose Admin Acetaminophen 650 mg 10/02/24 14:06 10/03/24 09:17 Acetaminophen 325 Mg Tablet PO 650 mg Q4H PRN Administration Mild Pain (1-3) or Fever Hydrocodone Bitart/Acetaminophen 1 tab 10/02/24 14:06 10/04/24 02:22 Hydrocodone/Acetaminophen (*Crx) 5-325 Mg Tablet PO 1 tab Q4H PRN Administration Pain Rated 4-6 Albuterol 2 puff 10/02/24 22:50 Albuterol Sulfate (*Sp) Aerosol 1 Puff INHALATION Q12H PRN Shortness Of Breath Alendronate Sodium 70 mg 10/08/24 07:30 Alendronate Sodium 70 Mg Tablet PO Tu@0730 LANDY Guaifenesin 600 mg 10/02/24 22:52 Guaifenesin 12 Hr 600 Mg Tabcr PO Q12HR PRN Congestion Hydrochlorothiazide 25 mg 10/03/24 09:00 10/03/24 09:17 Hydrochlorothiazide 25 Mg Tablet PO 25 mg DAILY LANDY Administration Ceftriaxone Sodium 1 gm in 50 mls @ 100 mls/hr 10/03/24 10:00 10/03/24 10:55 Rocephin 1 Gm/Ns 50 Ml IVPB Infused Q24H LANDY Infusion Vancomycin HCl 1,500 mg in 500 mls @ 250 mls/hr 10/05/24 04:00 Vancomycin 1,500 Mg/Ns 500 Ml IVPB Q36H LANDY Azithromycin 500 mg in 250 mls @ 250 mls/hr 10/04/24 07:00 Zithromax IVPB Q24H LANDY Losartan Potassium 100 mg 10/03/24 09:00 10/03/24 09:17 Losartan Potassium 100 Mg Tablet PO 100 mg DAILY LANDY Administration Miscellaneous Information 0 each 10/02/24 23:10 Exemestane 25 Mg Tablet- Nonformulary. Please Send To Pharmacy For Verification When Home XX 11/01/24 23:09 CLARIFY LANDY Morphine Sulfate 2 mg 10/02/24 14:06 Morphine Sulfate (*Crx) 2 Mg/Ml Inj IV PUSH Q2H PRN Pain Rated 7-10 Non-Formulary Medication 25 mg 10/03/24 09:00 Exemestane PO 11/02/24 08:59 DAILY LANDY Perflutren Lipid Microsphere 0 ml 10/02/24 14:02 Perflutren Lipid Microspheres 1.5 Ml Vial Diluted To 10 Ml Total Volume IV PUSH 10/05/24 14:03 ONCE PRN adequate visualization Protocol Promethazine HCl 12.5 mg 10/02/24 14:06 Promethazine Hcl 25 Mg/Ml Ampul IV PUSH Q6H PRN Nausea Radiology Results: ITS Impressions Chest X-Ray 10/02/24 15:49 Impression: 1: Decreased left pleural effusion post thoracentesis with no evidence for pneumothorax. Thoracentesis Ultrasound 10/02/24 17:17 IMPRESSION: 1. Successful ultrasound-guided thoracentesis yielding 1000 mL of bloody dark maroon-colored fluid. Labs Labs: Laboratory Results - last 24 hr 10/03/24 10/04/24 15:18 05:17 WBC 7.1 RBC 3.39 L Hgb 9.2 L Hct 30.4 L MCV 89.7 MCH 27.1 MCHC 30.3 L RDW 15.5 H Plt Count 174 MPV 10.9 H Sodium 140 Potassium 3.8 Chloride 106 Carbon Dioxide 26 Anion Gap 8 BUN 18 H Creatinine 1.57 H Estim Creat Clear Calc Not Reportable Estimated GFR 31 L Glucose 98 Calcium 9.3 Total Bilirubin 0.4 AST 21 ALT 6 Alkaline Phosphatase 74 Total Protein 6.5 Albumin 3.6 Nasal MRSA (PCR) Not detected Quality VTE Prophylaxis VTE prophylaxis: mechanical ordered
[2024-10-04] MEDS: AZITHROMYCIN 500 MG/NS 250 ML 500 MG/250 ML BAG 250 MG IVPB (09:31)
[2024-10-05] MEDS: VANCOMYCIN 1,500 MG/NS 500 ML 1,500 MG/500 ML BAG 200 MG IVPB (04:00)
[2024-10-05 05:51] LABS: Hematocrit 30.1 % (37.0-47.0); Hemoglobin 9.2 g/dL (12.0-15.0); Mean Corpuscular HGB Conc 30.6 g/dl (32-36); Mean Corpuscular Hemoglobin 27.4 pg (26-34); Mean Corpuscular Volume 89.6 fl (80-100); Mean Platelet Volume 10.6 fl (7.4-10.4); Platelet Count Result 156 k/mm3 (150-375); Red Blood Count 3.36 M/mm3 (4.2-5.4); Red Cell Distribution Width 15.5 % (11.5-14.5); White Blood Count 6.7 K/mm3 (4.5-10.0)
[2024-10-05 06:00] VITALS: BP 106/68; PULSE 76; RESP 18; TEMP 36.7; O2SAT 99
[2024-10-05 06:07] LABS: Alanine Aminotransferase 7 U/L (6-35); Albumin Level 3.4 g/dL (3.5-5.1); Alkaline Phosphatase 67 U/L (38-126); Anion Gap 8 mmol/L (4-12); Aspartate Amino Transferase 20 U/L (14-36); Bilirubin,Total 0.2 mg/dL (0.2-1.3); Blood Urea Nitrogen 19 mg/dL (7-17); Calcium 9.1 mg/dL (8.4-10.2); Carbon Dioxide 28 mmol/L (22-30); Chloride 104 mmol/L (98-107); Estimated Glomerular Filt Rate 33; Glucose 92 mg/dL (65-110); Potassium 3.7 mmol/L (3.4-5.0); Sodium 140 mmol/L (137-145); Total Protein 6.2 g/dL (6.3-8.2)
[2024-10-05] MEDS: AZITHROMYCIN 500 MG/NS 250 ML 500 MG/250 ML BAG 250 MG IVPB (06:45)
[2024-10-05] MEDS: LOSARTAN POTASSIUM 100 MG TABLET PO (09:09)
[2024-10-05] MEDS: HYDROcodone/acetaminophen (*CRX) 5-325 MG TABLET 1 TAB PO ×3 (09:09→20:21)
[2024-10-05] MEDS: guaiFENesin 12 HR 600 MG TABCR PO (09:09)
[2024-10-05] MEDS: hydroCHLOROthiazide 25 MG TABLET PO (09:09)
[2024-10-05 09:10] VITALS: O2SAT 92
[2024-10-05 09:19] VITALS: BP 120/79
--- NOTE | 2024-10-05 09:27 | P.PNIM_ITS ---
Progress Note: A&P Assessment and Plan (1) Bacteremia: Code(s): R78.81 - Bacteremia Status: Acute Assessment and Plan: Blood culture growing staph haemolytics in one bottle thus far. Started on vancomycin on 10/03. Continue to monitor cultures. Repeat cultures on 10/04, NGTD. Discussed with Dr. Bekc, cardiology to reread echo to rule out endocarditis. Reread of echo showed no definite evidence of endocarditis. If repeat culture remains positive will consider a LIVIA to further assess (2) Acute respiratory failure with hypoxia: Code(s): J96.01 - Acute respiratory failure with hypoxia Status: Acute Assessment and Plan: Spo2 87% on room air, requiring 2L on admission. Likely secondary to patients worsening effusion as seen on imaging. - Oxygen supplementation: 1 L NC, baseline RA. Continue to wean as tolerated to maintain spo2 > 90% - CXR, 10/02: 1. Increasing moderate to large left pleural effusion. 2. Increasing opacities in the left mid to upper and right lower lung zones which could represent atelectasis or pneumonia. - Patient will require a home O2 eval prior to discharge - See plan for pleural effusion below (3) Pleural effusion: Code(s): J90 - Pleural effusion, not elsewhere classified Status: Acute Assessment and Plan: - DDx: Malignant effusion vs exudative effusion vs transudative - CXR 09/27: 1: Left midthoracic mass, compatible with bronchogenic carcinoma until proven otherwise. 2: Moderate left pleural effusion. 3: Right basilar atelectasis. - CXR, 10/02: 1. Increasing moderate to large left pleural effusion. 2. Increasing opacities in the left mid to upper and right lower lung zones which could represent atelectasis or pneumonia. - s/p diagnostic thoracentesis on 10/02 with 1L blood dark maroon colored fluid removed. Repeat CXR showed improvement. pleural fluid showed NGTD, increased suspicion that effusion more so related to cancer - continue supplemental O2 to maintain O2 saturation greater than 90%, wean as tolerated - started on ceftriaxone and azithromycin on 10/02 for possible compressive/obstructive pneumonia. Transitioned to oral azithromycin and augmentin on 10/05. Sputum culture preliminary showing normal derek. - BNP mildly elevated 922, echo showed LVEF 60-65% and normal biventricular siz e. monitor I&Os and daily weights. Patient remains on 1L NC. Repeat CXR showed worsening airspace consolidation left mid and lower thorax that is consistent with pneumonia. Patient remains on antibiotics for pneumonia. Will obtain a CT chest to further evaluate. - given that patient is not significantly improving and the images show worsening results will consult pulmonology for brianer recommendations (4) Lung cancer: Onset Date: 07/2024 Qualifiers: Laterality: left Lung location: upper lobe of lung Qualified Code(s): C34.12 - Malignant neoplasm of upper lobe, left bronchus or lung Code(s): C34.90 - Malignant neoplasm of unspecified part of unspecified bronchus or lung Status: Acute Assessment and Plan: - currently undergoing radiation, last treatment on 09/26. next scheduled 10/02 however missed appointment as she sought treatment in the ED for SOB (5) Chronic kidney disease, stage 3a: Onset Date: 11/2020 Code(s): N18.31 - Chronic kidney disease, stage 3a Status: Chronic Assessment and Plan: - creatinine 1.65 and GFR 29 on admission, previously 1.85 and GFR 26 on 09/27. Appears at baseline. - trend renal function - monitor I/O - avoid nephrotoxic medications - renally dose medications - trend electrolytes, correct as needed (6) Hypertension: Qualifiers: Hypertension type: primary hypertension Qualified Code(s): I10 - Essential (primary) hypertension Code(s): I10 - Essential (primary) hypertension Status: Chronic Assessment and Plan: - chronic, continue home medications - Losartan 100 mg daily, hydrochlorothiazide 25 mg - stable, continue to monitor Time Spent With Patient Time with patient: 25 - 35 minutes Subjective Date/time seen: 10/05/24 09:27 Interval history: 89 yeawr old female with past medical history of non-small cell lung cancer (left upper lobe, currently undergoing radiation), COPD, breast cancer (left 2004, right 2005 s/p lumpectomy, radiation, endocrine therapy), and HTN presents to the hospital with shortness of breath. Patient is pleasant sitting up comfortably in her chair family at bedside. She states she is feeling slightly better today with improvement to her shortness of breath. Per daughter she continues to become increasingly short of breath with exertion. Patient has no other complaints denying chest pain, palpitations, nausea/vomiting, and abdominal pain. Review of Systems Review of Systems: All systems reviewed & are unremarkable except as noted in HPI and below Exam Narrative: AF HR 92 RR 20 Spo2 96 1L NC (baseline RA) BP 96/61 General: female in no acute respiratory distress who is nontoxic appearing, sitting up in chair HEENT: Normocephalic. Atraumatic. Extraocular movement intact. Sclera clear and anicteric. No facial asymmetry. Chest: Lungs with coarse to auscultation bilaterally to lower bases, worse on left. CV: Heart was regular rate and rhythm. S1-S2. No murmurs, gallops, or rubs. Abd: Abdomen was soft. Nontender. Nondistended. Positive bowel sounds. Ext: No clubbing, cyanosis, or edema. DP pulses bilaterally. Neuro: Patient is alert and oriented x3. Speech is clear. Objective Data Vital Signs Vital Signs: Vital Signs - 24 hr 10/04/24 09:35 10/04/24 10:40 10/04/24 14:10 Temperature 98.9 F Pulse Rate 92 89 Respiratory Rate 18 Blood Pressure 103/62 116/67 Pulse Oximetry 91 97 96 Oxygen Delivery Nasal Cannula Oxygen Flow Rate 1 Fraction of Inspired Oxygen 24 10/04/24 20:00 10/04/24 21:12 10/05/24 06:00 Temperature 98.0 F 98.0 F Pulse Rate 77 76 Respiratory Rate 16 18 Blood Pressure 109/67 106/68 Pulse Oximetry 96 97 99 Oxygen Delivery Nasal Cannula Oxygen Flow Rate 1 Fraction of Inspired Oxygen 10/05/24 09:19 Temperature Pulse Rate Respiratory Rate Blood Pressure 120/79 Pulse Oximetry Oxygen Delivery Oxygen Flow Rate Fraction of Inspired Oxygen Intake/Output Intake/Output: Intake & Output 10/02/24 10/03/24 10/04/24 10/05/24 23:59 23:59 23:59 23:59 Intake Total 290 1130 1430 Output Total 1000 Balance -710 1130 1430 Meds/Results Medications: Active Medications Generic Name Dose Route Start Last Admin Trade Name Freq PRN Reason Stop Dose Admin Acetaminophen 650 mg 10/02/24 14:06 10/03/24 09:17 Acetaminophen 325 Mg Tablet PO 650 mg Q4H PRN Administration Mild Pain (1-3) or Fever Hydrocodone Bitart/Acetaminophen 1 tab 10/02/24 14:06 10/05/24 09:09 Hydrocodone/Acetaminophen (*Crx) 5-325 Mg Tablet PO 1 tab Q4H PRN Administration Pain Rated 4-6 Albuterol 2 puff 10/02/24 22:50 Albuterol Sulfate (*Sp) Aerosol 1 Puff INHALATION Q12H PRN Shortness Of Breath Alendronate Sodium 70 mg 10/08/24 07:30 Alendronate Sodium 70 Mg Tablet PO Tu@0730 LANDY Guaifenesin 600 mg 10/02/24 22:52 10/05/24 09:09 Guaifenesin 12 Hr 600 Mg Tabcr PO 600 mg Q12HR PRN Administration Congestion Hydrochlorothiazide 25 mg 10/03/24 09:00 10/05/24 09:09 Hydrochlorothiazide 25 Mg Tablet PO 25 mg DAILY LANDY Administration Ceftriaxone Sodium 1 gm in 50 mls @ 100 mls/hr 10/03/24 10:00 10/05/24 09:10 Rocephin 1 Gm/Ns 50 Ml IVPB 100 mls/hr Q24H LANDY Administration Vancomycin HCl 1,500 mg in 500 mls @ 250 mls/hr 10/05/24 04:00 10/05/24 04:00 Vancomycin 1,500 Mg/Ns 500 Ml IVPB 200 mls/hr Q36H LANDY Administration Azithromycin 500 mg in 250 mls @ 250 mls/hr 10/04/24 07:00 10/05/24 06:45 Zithromax IVPB 250 mls/hr Q24H LANDY Administration Losartan Potassium 100 mg 10/03/24 09:00 10/05/24 09:09 Losartan Potassium 100 Mg Tablet PO 100 mg DAILY LANDY Administration Miscellaneous Information 0 each 10/02/24 23:10 10/05/24 09:09 Exemestane 25 Mg Tablet- Nonformulary. Please Send To Pharmacy For Verification When Home XX 11/01/24 23:09 Not Given CLARIFY LANDY Morphine Sulfate 2 mg 10/02/24 14:06 Morphine Sulfate (*Crx) 2 Mg/Ml Inj IV PUSH Q2H PRN Pain Rated 7-10 Non-Formulary Medication 25 mg 10/03/24 09:00 Exemestane PO 11/02/24 08:59 DAILY LANDY Perflutren Lipid Microsphere 0 ml 10/02/24 14:02 Perflutren Lipid Microspheres 1.5 Ml Vial Diluted To 10 Ml Total Volume IV PUSH 10/05/24 14:03 ONCE PRN adequate visualization Protocol Promethazine HCl 12.5 mg 10/02/24 14:06 Promethazine Hcl 25 Mg/Ml Ampul IV PUSH Q6H PRN Nausea Sodium Chloride 1 spray 10/04/24 16:38 Saline 0.65% Anibal Soln 44 Ml Btl NASAL Q6HR PRN Congestion Radiology Results: ITS Impressions Thoracentesis Ultrasound 10/02/24 17:17 IMPRESSION: 1. Successful ultrasound-guided thoracentesis yielding 1000 mL of bloody dark maroon-colored fluid. Chest X-Ray 10/05/24 09:15 Impression: 1: Worsening airspace consolidation left mid and lower thorax, consistent with pneumonia. Labs Labs: Laboratory Results - last 24 hr 10/05/24 05:28 WBC 6.7 RBC 3.36 L Hgb 9.2 L Hct 30.1 L MCV 89.6 MCH 27.4 MCHC 30.6 L RDW 15.5 H Plt Count 156 MPV 10.6 H Sodium 140 Potassium 3.7 Chloride 104 Carbon Dioxide 28 Anion Gap 8 BUN 19 H Creatinine 1.49 H Estim Creat Clear Calc Not Reportable Estimated GFR 33 L Glucose 92 Calcium 9.1 Total Bilirubin 0.2 AST 20 ALT 7 Alkaline Phosphatase 67 Total Protein 6.2 L Albumin 3.4 L Quality VTE Prophylaxis VTE prophylaxis: mechanical ordered
[2024-10-05 14:00] VITALS: BP 96/61; PULSE 92; RESP 20; TEMP 36.5; O2SAT 96
[2024-10-05 18:06] LABS: Procalcitonin 0.1 ng/mL
[2024-10-05 20:00] VITALS: O2SAT 94
[2024-10-05] MEDS: SENNA/DOCUSATE SODIUM TABLET 1 TAB PO (20:21)
[2024-10-05] MEDS: AMOXICILLIN/CLAVULANATE K 875-125 MG TAB 1 TABLET PO (20:22)
[2024-10-05 20:36] VITALS: BP 103/62; PULSE 88; RESP 18; TEMP 36.4; O2SAT 95
[2024-10-06] MEDS: PROMETHAZINE HCL 25 MG/ML AMPUL 12.5 MG IV PUSH (05:31)
[2024-10-06 05:39] LABS: Hematocrit 27.7 % (37.0-47.0); Hemoglobin 8.2 g/dL (12.0-15.0); Mean Corpuscular HGB Conc 29.6 g/dl (32-36); Mean Corpuscular Hemoglobin 27.1 pg (26-34); Mean Corpuscular Volume 91.4 fl (80-100); Platelet Count Result 156 k/mm3 (150-375); Red Blood Count 3.03 M/mm3 (4.2-5.4); Red Cell Distribution Width 15.4 % (11.5-14.5); White Blood Count 5.3 K/mm3 (4.5-10.0)
[2024-10-06 05:55] LABS: Alanine Aminotransferase 7 U/L (6-35); Albumin Level 3.3 g/dL (3.5-5.1); Alkaline Phosphatase 61 U/L (38-126); Anion Gap 7 mmol/L (4-12); Aspartate Amino Transferase 20 U/L (14-36); Bilirubin,Total 0.3 mg/dL (0.2-1.3); Blood Urea Nitrogen 22 mg/dL (7-17); Carbon Dioxide 28 mmol/L (22-30); Chloride 103 mmol/L (98-107); Estimated Glomerular Filt Rate 35; Glucose 89 mg/dL (65-110); Sodium 138 mmol/L (137-145); Total Protein 6.1 g/dL (6.3-8.2)
[2024-10-06 05:57] VITALS: BP 111/69; PULSE 86; RESP 18; TEMP 36.8; O2SAT 95
[2024-10-06 08:12] VITALS: BP 111/74; PULSE 84; RESP 16; O2SAT 97
[2024-10-06] MEDS: AMOXICILLIN/CLAVULANATE K 875-125 MG TAB 1 TABLET PO ×2 (08:14→22:53)
[2024-10-06] MEDS: guaiFENesin 12 HR 600 MG TABCR PO (08:14)
[2024-10-06] MEDS: hydroCHLOROthiazide 25 MG TABLET PO (08:15)
[2024-10-06] MEDS: AZITHROMYCIN 250 MG TABLET 500 MG PO (08:15)
[2024-10-06] MEDS: HYDROcodone/acetaminophen (*CRX) 5-325 MG TABLET 1 TAB PO (08:15)
[2024-10-06] MEDS: LOSARTAN POTASSIUM 100 MG TABLET PO (08:15)
--- NOTE | 2024-10-06 08:27 | PC.NURSE ---
RN was passing medications to patient. Patient stated she did not want to take the big pill because it was a Mucinex and she choked on it last night. RN checked the MAR and patient was not given Mucinex last night. The big pill she was referring to was her antibiotic and RN had broken it in half to help with swallowing it. Patient became very irritated with RN and was positive that she received a Mucinex last night. She then wanted to keep the pills on her bedside table and wait for a doctor to come by and explain that it was Mucinex. RN told her that pills could not be left bedside. Patient said RN was talking down to her and to get whoever was in charge. aerospace technician Pauline came into room and explained that large pill was an antibiotic and would help with her pneumonia. Patient again stated over and over it was a Mucinex. After talking with charge nurse she took pill crushed in pudding and told RN again that she spoke down on her and she will not have that today. RN and patient have had no issues whatsoever today or prior shifts.
[2024-10-06 08:42] VITALS: O2SAT 97
--- NOTE | 2024-10-06 08:52 | P.PNIM_ITS ---
Progress Note: A&P Assessment and Plan (1) Bacteremia: Code(s): R78.81 - Bacteremia Status: Acute Assessment and Plan: Blood culture growing staph haemolytics in one bottle thus far. Started on vancomycin on 10/03. Continue to monitor cultures. Repeat cultures on 10/04, NGTD. Discussed with Dr. Beck, cardiology to reread echo to rule out endocarditis. Reread of echo showed no definite evidence of endocarditis. If repeat culture remains positive will consider a LIVIA to further assess (2) Acute respiratory failure with hypoxia: Code(s): J96.01 - Acute respiratory failure with hypoxia Status: Acute Assessment and Plan: Spo2 87% on room air, requiring 2L on admission. Likely secondary to patients worsening effusion as seen on imaging. - Oxygen supplementation: 1 L NC, baseline RA. Continue to wean as tolerated to maintain spo2 > 90% - CXR, 10/02: 1. Increasing moderate to large left pleural effusion. 2. Increasing opacities in the left mid to upper and right lower lung zones which could represent atelectasis or pneumonia. - Patient will require a home O2 eval prior to discharge - See plan for pleural effusion below (3) Pleural effusion: Code(s): J90 - Pleural effusion, not elsewhere classified Status: Acute Assessment and Plan: - DDx: Malignant effusion vs exudative effusion vs transudative - CXR 09/27: 1: Left midthoracic mass, compatible with bronchogenic carcinoma until proven otherwise. 2: Moderate left pleural effusion. 3: Right basilar atelectasis. - CXR, 10/02: 1. Increasing moderate to large left pleural effusion. 2. Increasing opacities in the left mid to upper and right lower lung zones which could represent atelectasis or pneumonia. - s/p diagnostic thoracentesis on 10/02 with 1L blood dark maroon colored fluid removed. Repeat CXR showed improvement. pleural fluid showed NGTD, increased suspicion that effusion more so related to cancer - continue supplemental O2 to maintain O2 saturation greater than 90%, wean as tolerated - started on ceftriaxone and azithromycin on 10/02 for possible compressive/obstructive pneumonia. Transitioned to oral azithromycin and Augmentin on 10/05. Sputum culture preliminary showing normal derek. - BNP mildly elevated 922, echo showed LVEF 60-65% and normal biventricular siz e. monitor I&Os and daily weights. Patient remains on 1L NC. Repeat CXR showed worsening airspace consolidation left mid and lower thorax that is consistent with pneumonia. Patient remains on antibiotics for pneumonia, transitioned to orals to prevent further volume overload. CT chest showed increased left sided pleural effusion Given patients cancer, sedentary lifestyle, no anticoagulation, continued o2 requirement, and d dimer >20. Will hold on anticoagulation given possible thoracentesis tomorrow pending pulmonology recommendations. Cr 1.42 with GFR 35. Will obtain VQ scan to assess possible PE. Pulmonology consulted (4) Lung cancer: Onset Date: 07/2024 Qualifiers: Laterality: left Lung location: upper lobe of lung Qualified Code(s): C34.12 - Malignant neoplasm of upper lobe, left bronchus or lung Code(s): C34.90 - Malignant neoplasm of unspecified part of unspecified bronchus or lung Status: Acute Assessment and Plan: - currently undergoing radiation, last treatment on 09/26. next scheduled 10/02 however missed appointment as she sought treatment in the ED for SOB (5) Chronic kidney disease, stage 3a: Onset Date: 11/2020 Code(s): N18.31 - Chronic kidney disease, stage 3a Status: Chronic Assessment and Plan: - creatinine 1.65 and GFR 29 on admission, previously 1.85 and GFR 26 on 09/27. Appears at baseline. - trend renal function - monitor I/O - avoid nephrotoxic medications - renally dose medications - trend electrolytes, correct as needed (6) Hypertension: Qualifiers: Hypertension type: primary hypertension Qualified Code(s): I10 - Essential (primary) hypertension Code(s): I10 - Essential (primary) hypertension Status: Chronic Assessment and Plan: - chronic, continue home medications - Losartan 100 mg daily, hydrochlorothiazide 25 mg - stable, continue to monitor Time Spent With Patient Time with patient: 25 - 35 minutes Subjective Date/time seen: 10/06/24 08:52 Interval history: 89 yeawr old female with past medical history of non-small cell lung cancer (left upper lobe, currently undergoing radiation), COPD, breast cancer (left 2004, right 2005 s/p lumpectomy, radiation, endocrine therapy), and HTN presents to the hospital with shortness of breath. Patient is pleasant sitting up on the side of her bed. She continues to endorse intermittent shortness of breath that is further exacerbated with exertion. She has no other complaints denying chest pain, palpitations, nausea/vomiting and abdominal pain. Discussed patient with Dr. Burkett, pulmonology to evaluate tomorrow. Review of Systems Review of Systems: All systems reviewed & are unremarkable except as noted in HPI and below Exam Narrative: AF HR 84 RR 16 Spo2 97 1L NC BP 111/74 General: female in no acute respiratory distress who is nontoxic appearing, sitting up on side of her bed HEENT: Normocephalic. Atraumatic. Extraocular movement intact. Sclera clear and anicteric. No facial asymmetry. Chest: Lungs with coarse to auscultation to left lower base CV: Heart was regular rate and rhythm. Abd: Abdomen was soft. Nontender. Nondistended. Positive bowel sounds. Ext: No clubbing, cyanosis, or edema. DP pulses bilaterally. Neuro: Patient is alert and oriented x3. Speech is clear. Objective Data Vital Signs Vital Signs: Vital Signs - 24 hr 10/05/24 09:10 10/05/24 09:19 10/05/24 09:30 Temperature Pulse Rate Respiratory Rate Blood Pressure 120/79 Pulse Oximetry 92 Oxygen Delivery Nasal Cannula Nasal Cannula Oxygen Flow Rate 1 1 10/05/24 10:32 10/05/24 14:00 10/05/24 20:00 Temperature 97.7 F Pulse Rate 92 Respiratory Rate 20 Blood Pressure 96/61 L Pulse Oximetry 96 94 Oxygen Delivery Nasal Cannula Nasal Cannula Oxygen Flow Rate 1 1 10/05/24 20:36 10/06/24 05:57 10/06/24 08:12 Temperature 97.5 F L 98.2 F Pulse Rate 88 86 84 Respiratory Rate 18 18 16 Blood Pressure 103/62 111/69 111/74 Pulse Oximetry 95 95 97 Oxygen Delivery Oxygen Flow Rate 10/06/24 08:42 Temperature Pulse Rate Respiratory Rate Blood Pressure Pulse Oximetry 97 Oxygen Delivery Nasal Cannula Oxygen Flow Rate 1 Intake/Output Intake/Output: Intake & Output 10/03/24 10/04/24 10/05/24 10/06/24 23:59 23:59 23:59 23:59 Intake Total 1130 1430 600 150 Balance 1130 1430 600 150 Meds/Results Medications: Active Medications Generic Name Dose Route Start Last Admin Trade Name Freq PRN Reason Stop Dose Admin Acetaminophen 650 mg 10/02/24 14:06 10/03/24 09:17 Acetaminophen 325 Mg Tablet PO 650 mg Q4H PRN Administration Mild Pain (1-3) or Fever Hydrocodone Bitart/Acetaminophen 1 tab 10/02/24 14:06 10/06/24 08:15 Hydrocodone/Acetaminophen (*Crx) 5-325 Mg Tablet PO 1 tab Q4H PRN Administration Pain Rated 4-6 Albuterol 2 puff 10/02/24 22:50 Albuterol Sulfate (*Sp) Aerosol 1 Puff INHALATION Q12H PRN Shortness Of Breath Alendronate Sodium 70 mg 10/08/24 07:30 Alendronate Sodium 70 Mg Tablet PO Tu@0730 LANDY Amoxicillin/Clavulanate Potassium 1 tablet 10/05/24 21:00 10/06/24 08:14 Amoxicillin/Clavulanate K 875-125 Mg Tab PO 1 tablet Q12HR LANDY Administration Azithromycin 500 mg 10/06/24 09:00 10/06/24 08:15 Azithromycin 250 Mg Tablet PO 500 mg DAILY LANDY Administration Guaifenesin 600 mg 10/02/24 22:52 10/06/24 08:14 Guaifenesin 12 Hr 600 Mg Tabcr PO 600 mg Q12HR PRN Administration Congestion Hydrochlorothiazide 25 mg 10/03/24 09:00 10/06/24 08:15 Hydrochlorothiazide 25 Mg Tablet PO 25 mg DAILY LANDY Administration Vancomycin HCl 1,500 mg in 500 mls @ 250 mls/hr 10/05/24 04:00 10/05/24 04:00 Vancomycin 1,500 Mg/Ns 500 Ml IVPB 200 mls/hr Q36H LANDY Administration Losartan Potassium 100 mg 10/03/24 09:00 10/06/24 08:15 Losartan Potassium 100 Mg Tablet PO 100 mg DAILY LANDY Administration Miscellaneous Information 0 each 10/02/24 23:10 10/05/24 09:09 Exemestane 25 Mg Tablet- Nonformulary. Please Send To Pharmacy For Verification When Home XX 11/01/24 23:09 Not Given CLARIFY LANDY Morphine Sulfate 2 mg 10/02/24 14:06 Morphine Sulfate (*Crx) 2 Mg/Ml Inj IV PUSH Q2H PRN Pain Rated 7-10 Non-Formulary Medication 25 mg 10/03/24 09:00 Exemestane PO 11/02/24 08:59 DAILY LANDY Promethazine HCl 12.5 mg 10/02/24 14:06 10/06/24 05:31 Promethazine Hcl 25 Mg/Ml Ampul IV PUSH 12.5 mg Q6H PRN Administration Nausea Senna/Docusate Sodium 1 tab 10/05/24 21:00 10/05/24 20:21 Senna/Docusate Sodium Tablet PO 1 tab HS LANDY Administration Sodium Chloride 1 spray 10/04/24 16:38 Saline 0.65% Anibal Soln 44 Ml Btl NASAL Q6HR PRN Congestion Radiology Results: ITS Impressions Thoracentesis Ultrasound 10/02/24 17:17 IMPRESSION: 1. Successful ultrasound-guided thoracentesis yielding 1000 mL of bloody dark maroon-colored fluid. Chest X-Ray 10/05/24 09:15 Impression: 1: Worsening airspace consolidation left mid and lower thorax, consistent with pneumonia. Chest CT 10/05/24 17:26 IMPRESSION: Increased left-sided pleural effusion, as detailed above. Redemonstration of patient's known biopsy-proven malignancy within the left upper lobe. Additional findings within the chest consistent with diffuse metastatic disease (lung versus breast). Morphologically suspicious lymph node within the left axilla, as detailed above. Labs Labs: Laboratory Results - last 24 hr 10/05/24 10/06/24 05:25 05:13 WBC 5.3 RBC 3.03 L Hgb 8.2 L Hct 27.7 L MCV 91.4 MCH 27.1 MCHC 29.6 L RDW 15.4 H Plt Count 156 MPV 11.0 H Sodium 138 Potassium 4.0 Chloride 103 Carbon Dioxide 28 Anion Gap 7 BUN 22 H Creatinine 1.42 H Estim Creat Clear Calc Not Reportable Estimated GFR 35 L Glucose 89 Calcium 9.0 Total Bilirubin 0.3 AST 20 ALT 7 Alkaline Phosphatase 61 Total Protein 6.1 L Albumin 3.3 L Procalcitonin 0.1 Quality VTE Prophylaxis VTE prophylaxis: mechanical ordered
[2024-10-06 10:16] LABS: D Dimer > 20.00 ug/mL (<0.48)
[2024-10-06 15:10] VITALS: BP 124/84; PULSE 97; RESP 16; TEMP 37.5; O2SAT 99
[2024-10-06 15:22] LABS: Vancomycin Trough 12.9 ug/mL (10.0-20.0)
[2024-10-06] MEDS: VANCOMYCIN 1,750 MG/NS 500 ML 1,750 MG/500 ML BAG 250 MG IVPB (16:02)
[2024-10-06 20:00] VITALS: O2SAT 95
[2024-10-06 20:27] VITALS: BP 119/74; PULSE 94; RESP 20; TEMP 36.9; O2SAT 93
[2024-10-06] MEDS: SENNA/DOCUSATE SODIUM TABLET 1 TAB PO (22:53)
[2024-10-07] MEDS: PROMETHAZINE HCL 25 MG/ML AMPUL 12.5 MG IV PUSH (02:26)
[2024-10-07] MEDS: MORPHINE SULFATE (*CRX) 2 MG/ML INJ IV PUSH (03:45)
[2024-10-07 04:21] VITALS: BP 102/67; PULSE 73; RESP 18; TEMP 36.5; O2SAT 93
[2024-10-07 05:02] LABS: Hematocrit 27.2 % (37.0-47.0); Hemoglobin 8.3 g/dL (12.0-15.0); Mean Corpuscular HGB Conc 30.5 g/dl (32-36); Mean Corpuscular Hemoglobin 27.3 pg (26-34); Mean Corpuscular Volume 89.5 fl (80-100); Platelet Count Result 162 k/mm3 (150-375); Red Blood Count 3.04 M/mm3 (4.2-5.4); Red Cell Distribution Width 15.5 % (11.5-14.5); White Blood Count 5.8 K/mm3 (4.5-10.0)
[2024-10-07 05:12] LABS: Alanine Aminotransferase 7 U/L (6-35); Albumin Level 3.3 g/dL (3.5-5.1); Alkaline Phosphatase 68 U/L (38-126); Anion Gap 7 mmol/L (4-12); Aspartate Amino Transferase 26 U/L (14-36); Bilirubin,Total 0.4 mg/dL (0.2-1.3); Blood Urea Nitrogen 19 mg/dL (7-17); Calcium 8.9 mg/dL (8.4-10.2); Carbon Dioxide 27 mmol/L (22-30); Chloride 105 mmol/L (98-107); Estimated Glomerular Filt Rate 36; Glucose 88 mg/dL (65-110); Sodium 139 mmol/L (137-145); Total Protein 6.2 g/dL (6.3-8.2)
[2024-10-07 07:16] VITALS: O2SAT 91
--- NOTE | 2024-10-07 08:24 | PM.IMPN ---
Progress Note: A&P Assessment and Plan (1) Bacteremia: Code(s): R78.81 - Bacteremia Status: Acute Assessment and Plan: Blood culture growing staph haemolytics in one bottle thus far. Started on vancomycin on 10/03, discontinued. Continue to monitor cultures. Repeat cultures on 10/04, NGTD. Discussed with Dr. Beck, cardiology to reread echo to rule out endocarditis. Reread of echo showed no definite evidence of endocarditis. If repeat culture remains positive will consider a LIVIA to further assess (2) Acute respiratory failure with hypoxia: Code(s): J96.01 - Acute respiratory failure with hypoxia Status: Acute Assessment and Plan: Spo2 87% on room air, requiring 2L on admission. Likely secondary to patients worsening effusion as seen on imaging. - Oxygen supplementation: 2 L NC, baseline RA. Continue to wean as tolerated to maintain spo2 > 90% - Patient will require a home O2 eval prior to discharge - See plan for pleural effusion below (3) Pleural effusion: Code(s): J90 - Pleural effusion, not elsewhere classified Status: Acute Assessment and Plan: - DDx: Malignant effusion vs exudative effusion vs transudative - CXR 09/27: 1: Left midthoracic mass, compatible with bronchogenic carcinoma until proven otherwise. 2: Moderate left pleural effusion. 3: Right basilar atelectasis. - CXR, 10/02: 1. Increasing moderate to large left pleural effusion. 2. Increasing opacities in the left mid to upper and right lower lung zones which could represent atelectasis or pneumonia. - s/p diagnostic thoracentesis on 10/02 with 1L blood dark maroon colored fluid removed. Repeat CXR showed improvement. 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 Transitioned to oral azithromycin (course completed) and Augmentin on 10/05-10/08. Sputum culture preliminary showing normal derek. - BNP mildly elevated 922, echo showed LVEF 60-65% and normal biventricular size. monitor I&Os and daily weights. Patient remains on increased oxygen supplementation. Repeat CXR showed worsening airspace consolidation left mid and lower thorax that is consistent with pneumonia. Patient remains on antibiotics for pneumonia, transitioned to orals to prevent further volume overload. CT chest showed increased left sided pleural effusion Given patients cancer, sedentary lifestyle, no anticoagulation, continued o2 requirement, and d dimer >20. Will hold on anticoagulation pending VQ scan results. History of CKD. Will obtain VQ scan to assess possible PE. Chest XR today showed continued worsening of the left pleural effusion Pulmonology consulted Discussed patient case with pulmonology Dr. Chen. Will plan to call patients oncologist Dr. Ortez tomorrow to discuss plan for possible pleurx placement given the worsening of patients effusion despite recent thoracentesis. Patient will require transfer to another facility for pleurx as pulmonology does not perform them here. Dr. Chen advised against repeat thoracentesis given risk of complications and the goal of definitive treatment being the plan. (4) Lung cancer: Onset Date: 07/2024 Qualifiers: Laterality: left Lung location: upper lobe of lung Qualified Code(s): C34.12 - Malignant neoplasm of upper lobe, left bronchus or lung Code(s): C34.90 - Malignant neoplasm of unspecified part of unspecified bronchus or lung Status: Acute Assessment and Plan: - Reviewed oncology Dr. Ortez note from 08/30/24. Plan for immunotherapy to start in October. Not a chemo candidate. Currently undergoing radiation, last treatment on 09/26. next scheduled 10/02 however missed appointment as she sought treatment in the ED for SOB. Discussed patient case with pulmonology Dr. Chen. Will plan to call patients oncologist Dr. Ortez tomorrow to discuss plan for possible pleurx placement given the worsening of patients effusion despite recent thoracentesis. Patient will require transfer to another facility for pleurx as pulmonology does not perform them here. Dr. Chen advised against repeat thoracentesis given risk of complications and the goal of definitive treatment being the plan. (5) Chronic kidney disease, stage 3a: Onset Date: 11/2020 Code(s): N18.31 - Chronic kidney disease, stage 3a Status: Chronic Assessment and Plan: - creatinine 1.65 and GFR 29 on admission, previously 1.85 and GFR 26 on 09/27. Appears at baseline. - trend renal function - monitor I/O - avoid nephrotoxic medications - renally dose medications - trend electrolytes, correct as needed (6) Hypertension: Qualifiers: Hypertension type: primary hypertension Qualified Code(s): I10 - Essential (primary) hypertension Code(s): I10 - Essential (primary) hypertension Status: Chronic Assessment and Plan: - chronic, continue home medications - Losartan 100 mg daily, hydrochlorothiazide 25 mg - stable, continue to monitor Time Spent With Patient Time with patient: 25 - 35 minutes Subjective Date/time seen: 10/07/24 08:24 Interval history: 89 yeawr old female with past medical history of non-small cell lung cancer (left upper lobe, currently undergoing radiation), COPD, breast cancer (left 2004, right 2005 s/p lumpectomy, radiation, endocrine therapy), and HTN presents to the hospital with shortness of breath. Patient is pleasant sitting up in bed. She endorses increased shortness of breath today especially with ambulation. She denies chest pain, palpitations, nausea/vomiting, and abdominal pain. Discussed patient case with pulmonology Dr. Chen. Will plan to call patients oncologist Dr. Ortez tomorrow to discuss plan for possible pleurx placement given the worsening of patients effusion despite recent thoracentesis. Patient will require transfer to another facility for pleurx as pulmonology does not perform them here. Dr. Chen advised against repeat thoracentesis given risk of complications and the goal of definitive treatment being the plan. Review of Systems Review of Systems: All systems reviewed & are unremarkable except as noted in HPI and below Exam Narrative: AF HR 73 RR 18 Spo2 91 2L NC (baseline RA) BP 102/67 General: female in no acute respiratory distress who is nontoxic appearing, sitting up in bed HEENT: Normocephalic. Atraumatic. Extraocular movement intact. Sclera clear and anicteric. No facial asymmetry. Chest: Lungs with coarse to auscultation to left lower base. Speaks full sentences. CV: Heart was regular rate and rhythm. Abd: Abdomen was soft. Nontender. Nondistended. Positive bowel sounds. Ext: No clubbing, cyanosis, or edema. DP pulses bilaterally. Neuro: Patient is alert and oriented x3. Speech is clear. Objective Data Vital Signs Vital Signs: Vital Signs - 24 hr 10/06/24 08:42 10/06/24 15:10 10/06/24 20:00 Temperature 99.5 F Pulse Rate 97 Respiratory Rate 16 Blood Pressure 124/84 Pulse Oximetry 97 99 95 Oxygen Delivery Nasal Cannula Nasal Cannula Oxygen Flow Rate 1 1 Fraction of Inspired Oxygen 10/06/24 20:27 10/07/24 04:21 10/07/24 07:16 Temperature 98.4 F 97.7 F Pulse Rate 94 73 Respiratory Rate 20 18 Blood Pressure 119/74 102/67 Pulse Oximetry 93 93 91 Oxygen Delivery Nasal Cannula Oxygen Flow Rate 1 Fraction of Inspired Oxygen 24 Intake/Output Intake/Output: Intake & Output 10/04/24 10/05/24 10/06/24 10/07/24 23:59 23:59 23:59 23:59 Intake Total 1430 600 750 120 Balance 1430 600 750 120 Meds/Results Medications: Active Medications Generic Name Dose Route Start Last Admin Trade Name Freq PRN Reason Stop Dose Admin Acetaminophen 650 mg 10/02/24 14:06 10/03/24 09:17 Acetaminophen 325 Mg Tablet PO 650 mg Q4H PRN Administration Mild Pain (1-3) or Fever Hydrocodone Bitart/Acetaminophen 1 tab 10/02/24 14:06 10/06/24 08:15 Hydrocodone/Acetaminophen (*Crx) 5-325 Mg Tablet PO 1 tab Q4H PRN Administration Pain Rated 4-6 Albuterol 2 puff 10/02/24 22:50 Albuterol Sulfate (*Sp) Aerosol 1 Puff INHALATION Q12H PRN Shortness Of Breath Alendronate Sodium 70 mg 10/08/24 07:30 Alendronate Sodium 70 Mg Tablet PO Tu@0730 LANDY Amoxicillin/Clavulanate Potassium 1 tablet 10/05/24 21:00 10/06/24 22:53 Amoxicillin/Clavulanate K 875-125 Mg Tab PO 1 tablet Q12HR LANDY Administration Azithromycin 500 mg 10/06/24 09:00 10/06/24 08:15 Azithromycin 250 Mg Tablet PO 500 mg DAILY LANDY Administration Guaifenesin 600 mg 10/02/24 22:52 10/06/24 08:14 Guaifenesin 12 Hr 600 Mg Tabcr PO 600 mg Q12HR PRN Administration Congestion Hydrochlorothiazide 25 mg 10/03/24 09:00 10/06/24 08:15 Hydrochlorothiazide 25 Mg Tablet PO 25 mg DAILY LANDY Administration Vancomycin HCl 1,750 mg in 500 mls @ 250 mls/hr 10/06/24 16:00 10/06/24 16:02 Vancomycin 1,750 Mg/Ns 500 Ml IVPB 250 mls/hr Q36H LANDY Administration Losartan Potassium 100 mg 10/03/24 09:00 10/06/24 08:15 Losartan Potassium 100 Mg Tablet PO 100 mg DAILY LANDY Administration Miscellaneous Information 0 each 10/02/24 23:10 10/06/24 16:18 Exemestane 25 Mg Tablet- Nonformulary. Please Send To Pharmacy For Verification When Home XX 11/01/24 23:09 Not Given CLARIFY LANDY Morphine Sulfate 2 mg 10/02/24 14:06 10/07/24 03:45 Morphine Sulfate (*Crx) 2 Mg/Ml Inj IV PUSH 2 mg Q2H PRN Administration Pain Rated 7-10 Non-Formulary Medication 25 mg 10/03/24 09:00 Exemestane PO 11/02/24 08:59 DAILY LANDY Promethazine HCl 12.5 mg 10/02/24 14:06 10/07/24 02:26 Promethazine Hcl 25 Mg/Ml Ampul IV PUSH 12.5 mg Q6H PRN Administration Nausea Senna/Docusate Sodium 1 tab 10/05/24 21:00 10/06/24 22:53 Senna/Docusate Sodium Tablet PO 1 tab HS LANDY Administration Sodium Chloride 1 spray 10/04/24 16:38 Saline 0.65% Anibal Soln 44 Ml Btl NASAL Q6HR PRN Congestion Radiology Results: ITS Impressions Thoracentesis Ultrasound 10/02/24 17:17 IMPRESSION: 1. Successful ultrasound-guided thoracentesis yielding 1000 mL of bloody dark maroon-colored fluid. Chest X-Ray 10/05/24 09:15 Impression: 1: Worsening airspace consolidation left mid and lower thorax, consistent with pneumonia. Chest CT 10/05/24 17:26 IMPRESSION: Increased left-sided pleural effusion, as detailed above. Redemonstration of patient's known biopsy-proven malignancy within the left upper lobe. Additional findings within the chest consistent with diffuse metastatic disease (lung versus breast). Morphologically suspicious lymph node within the left axilla, as detailed above. Labs Labs: Laboratory Results - last 24 hr 10/06/24 10/06/24 10/07/24 09:20 14:55 04:37 WBC 5.8 RBC 3.04 L Hgb 8.3 L Hct 27.2 L MCV 89.5 MCH 27.3 MCHC 30.5 L RDW 15.5 H Plt Count 162 MPV 11.0 H D-Dimer > 20.00 H Sodium 139 Potassium 4.0 Chloride 105 Carbon Dioxide 27 Anion Gap 7 BUN 19 H Creatinine 1.39 H Estim Creat Clear Calc Not Reportable Estimated GFR 36 L Glucose 88 Calcium 8.9 Total Bilirubin 0.4 AST 26 ALT 7 Alkaline Phosphatase 68 Total Protein 6.2 L Albumin 3.3 L Vancomycin Trough 12.9 Quality VTE Prophylaxis VTE prophylaxis: mechanical ordered
[2024-10-07] MEDS: AZITHROMYCIN 250 MG TABLET 500 MG PO (09:20)
[2024-10-07 09:21] VITALS: RESP 18; O2SAT 91
[2024-10-07] MEDS: hydroCHLOROthiazide 25 MG TABLET PO (09:21)
[2024-10-07] MEDS: LOSARTAN POTASSIUM 100 MG TABLET PO (09:21)
[2024-10-07] MEDS: AMOXICILLIN/CLAVULANATE K 875-125 MG TAB 1 TABLET PO ×2 (09:21→20:36)
--- NOTE | 2024-10-07 11:03 | PCOTNOTE ---
The patient treatment was not able to be completed. Lauren sat at the edge of the bed for exercise participation and returned back to bed patient was short of breath and stated she could not try more exercises at this time. Will plan to continue treatment per plan of care.
[2024-10-07] MEDS: HYDROcodone/acetaminophen (*CRX) 5-325 MG TABLET 1 TAB PO ×2 (11:47→20:34)
[2024-10-07 12:24] LABS: Albumin Pleural Fluid 2.9 g/dL
--- NOTE | 2024-10-07 13:38 | PCPTNOTE ---
Attempted to see patient for PT, however patient out of the room for testing.
[2024-10-07 14:00] VITALS: BP 101/58; PULSE 86; RESP 17; TEMP 36.8; O2SAT 100
--- NOTE | 2024-10-07 14:39 | PCPTNOTE ---
Attempted to see patient for PT, however patient declined. Patient reported today is not a good day.
--- NOTE | 2024-10-07 15:00 | PM.CNPUL ---
Assessment and Plan Assessment and plan (1) Malignant pleural effusion: Code(s): J91.0 - Malignant pleural effusion Status: Acute Assessment and Plan: Patient with a history of breast cancer and lung cancer. 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 10/07/2024: Patient tells me she still has shortness of breath. She cannot give me a clear answer as to when the last time she had hemoptysis was. Currently the patient is afebrile. Currently patient is on 1 L nasal cannula saturations 94%. White Blood cell 5.8. Creatinine 1.39. Procalcitonin 0.1. Pleural fluid cultures are negative. V/Q scan today with decreased ventilation and perfusion throughout the left lung in the posterior areas. No abnormalities in the right lung. Nondiagnostic, lower intermediate probability. Chest x-ray on 10/07/2024 shows an increased left pleural effusion occupying approximately 35% of left hemithorax. Patient with malignant left pleural effusion with reaccumulation since 10/02/2024. Plan: Recommend patient be transferred to higher level of care facility to be evaluated by thoracic surgery or Interventional Radiology for a definitive procedure such as PleurX catheter or VATS with pleurodesis. At this time the patient is on low levels of oxygen and does not have excessive symptoms that would warrant the risks associated with a repeat thoracentesis at our hospital. At this time the patient would like to try and find out a hospital that her oncologist, Dr. Ortez, would recommend. Discussed with Blanca Xiong, will sign off, call with questions. History of Present Illness History of Present Illness Consult date: 10/07/24 Chief complaint: pleural effusion,pneumonia Narrative: 10/07/2024: This is a new pulmonary consult for malignant pleural effusion. A 9-year-old with a history of breast cancer, lung cancer, hypertension. 08/30/2024: Last note from oncologist, Dr. Adalid Ortez: 08/01/2024: CT-guided biopsy left upper lobe mass adenocarcinoma. recommendations: I do support and agree with radiation therapy to the left lung mass in order to resolve the hemoptysis and to try to treat this cancer more effectively. Since she is not a candidate for chemotherapy due to age and debility, I will proceed with adjuvant immunotherapy with pembrolizumab 200 mg IV every 3 weeks due to the fact that her PD - L1 expression is 100%. I will plan to start her 1st cycle in October. She will continue with letrozole 2.5 mg daily for breast cancer portion of the disease. Regarding her hemoptysis and cough I have treated her with 2 rounds of antibiotics, Medrol Dosepak and Tessalon Perles. She will continue with [id number] cough syrup. This should resolve once the radiation has begun. Note from Radiation Oncology on 09/26/2024: history of known diagnosis of left breast cancer which was diagnosed in 2004 and had reoccurrence in the right breast in 2015 for which she is being treated with radiation followed by hormonal treatment for 10 years. Since then patient has been regularly going through diagnostic mammograms with no signs of clinical recurrence until 2018 patient was evaluated for positive findings on her right axillary tail and even biopsies which revealed well-differentiated tubular carcinoma consistent with breast primary showing ER positive MT positive with a low Ki-67 index and hence patient underwent lumpectomy with sentinel lymph node sampling in February of 2019 and started on endocrine therapy with letrozole. And patient presented with a left axillary mass in June 07 2024. On further evaluation and she was found to have a 4.6 x 4 cm hypermetabolic mass at the junction of the left upper lung and lingula with SUV of 11 and several satellite lesions nearby with a borderline SUV uptake and the biopsies were consistent with adenocarcinoma.Hence patient was recommended external beam radiation and referred here for further management hoping that patient would be a candidate for stereotactic radiotherapy. On further questioning patient gives me a history of blood-stained sputum on occasions for last 2-3 months. No significant weight loss no change in shortness of breath no rib pain or any other respiratory symptoms which is out of the ordinary for 89-year-old lady. Site: Patient is receiving external beam radiation to her left upper lobe with a curative Intent Dose: Patient completed external beam radiation to a cumulative dose of 2000 cGy in 5 fractions with elapsed time of 7 days. Patient continues to have on and off hemoptysis with some blood streaks for which she has been recommended to continue Mucinex for her cough symptoms. And to go to the ER if hemoptysis or blood-stained sputum continues. 09/27/2024: Patient presented to [facility] with shortness of breath and a left pleural effusion occupying approximately 35% of the left hemithorax. On 10/02/2024 patient had a left thoracentesis with 100 mL of bloody dark maroon colored fluid. postprocedure chest x-ray showed left lower lobe infiltrate with no left pleural effusion. Chest x-ray on 10/05/2024 with left lower lobe consolidation increased since 10/02/24. 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 10/07/2024: Patient tells me she still has shortness of breath. She cannot give me a clear answer as to when the last time she had hemoptysis was. Currently the patient is afebrile. Currently patient is on 1 L nasal cannula saturations 94%. White Blood cell 5.8. Creatinine 1.39. Procalcitonin 0.1. Pleural fluid cultures are negative. V/Q scan today with decreased ventilation and perfusion throughout the left lung in the posterior areas. No abnormalities in the right lung. Nondiagnostic, lower intermediate probability. Chest x-ray on 10/07/2024 shows an increased left pleural effusion occupying approximately 35% of left hemithorax. DATA: 10/05/2024: CT scan chest: HISTORY: 89-year-old woman with a remote history of right-sided breast cancer presents with worsening shortness of breath during treatment of left-sided lung cancer (diagnosed in July 2024). Currently hospitalized with shortness of breath and bacteremia, without significant clinical improvement. Chest CT was requested for further evaluation COMPARISON: Plain film evaluation of the chest performed 6 hours earlier. Reference was also made to a CT examination of the chest dated 06/24/2024, and PET/CT performed 07/11/2024 FINDINGS/OBSERVATIONS: LUNG: Innumerable 5 to 8mm pulmonary nodules detected bilaterally, for which metastatic disease is suspected. Redemonstration of a left upper lobe pleural-based mass, consistent with biopsy-proven non-small cell lung cancer Increased left-sided pleural effusion with adjacent consolidation when compared with examination from recent lung biopsy performed 2 months earlier. HEART: The heart is enlarged, with a moderate pericardial effusion. MEDIASTINUM: Limited evaluation without intravenous contrast. SOFT TISSUES OF THE CHEST: Postoperative change within the bilateral breast tissue and bilateral axilla. A nonpathologically enlarged but morphologically suspicious lymph node is identified within the left axilla (axial series, image 56) measuring 12 mm in short axis dimension. BONES OF THE CHEST: Age-appropriate degenerative disease, without acute fracture. No lytic or blastic lesions are identified. IMPRESSION: Increased left-sided pleural effusion, as detailed above. Redemonstration of patient's known biopsy-proven malignancy within the left upper lobe. Additional findings within the chest consistent with diffuse metastatic disease (lung versus breast). Morphologically suspicious lymph node within the left axilla, as detailed above. 10/03/24: Final Diagnosis Left pleural fluid, cytology and cell block: - Hemodilute specimen - Metastatic pulmonary adenocarcinoma - Reactive mesothelial cells - Immunoperoxidase stains with positive controls for the following markers were performed [id number] Positive AE1/AE3 Positive TTF1 Positive Napsin A Negaative 10/03/2024: Echo Summary 1. Complete two-dimensional, color flow and Doppler transthoracic echocardiogram is performed. 2. There is normal biventricular size and systolic function. 3. There is no significant valvular abnormalities. 4. There are no definite evidence of endocarditis. If clinical suspicion is high, can consider transesophageal echocardiogram. Right Ventricle The right ventricle is normal in size and systolic function. Right Atria The right atrium is normal size. RVSP 41. Review of Systems Constitutional: Constitutional: Reports no additional constitutional complaints Eyes: Eyes: Reports no additional eye complaints ENT: Reports system reviewed and no additional complaints, except as documented Cardiovascular: Cardiovascular: Reports no additional cardiovascular complaints Respiratory: Respiratory: Reports no additional respiratory complaints Gastrointestinal: Gastrointestinal: Reports no additional gastrointestinal complaints Musculoskeletal: Musculoskeletal: Reports no additional musculoskeletal complaints Neurologic: Reports system reviewed and no additional complaints, except as documented Psychiatric: Psychiatric: Reports no additional psychiatric complaints Endocrine: Endocrine: Reports no additional endocrine complaints Hematologic/Lymphatic: Hematologic/Lymphatic: Reports no additional hematologic/lymphatic complaints Allergic/Immunologic: Allergic/Immunologic: Reports no additional allergic/immunologic complaints PMFSH Past Medical History Medical History Lung cancer (07/2024) Primary adenocarcinoma of the lung Fracture of radius, distal, right, closed COPD (chronic obstructive pulmonary disease) case management patient Kidney stones Breast cancer in female left, 2004. right, 2015. Hypertension Surgical History Surgical History History of total right hip arthroplasty 11/04 History of total left hip replacement 06/04 History of hysterectomy 1981 History of back surgery lumbar decompression 07/29 S/P lumpectomy, left breast 2002 History of hip replacement S/P lumpectomy, right breast 2014 Family History Family History Mother Carcinoma of colon Father Acute myocardial infarction Social History Social History Smoking packs per day: 0.5 Smoking cigarettes per day: 10.0 Years smoked: 15 Smoking pack-years: 7.50 Smoking status: Former smoker Tobacco type: cigarettes Smoking end date: 01/23/24 Alcohol intake: never Substance use: never Do You Feel Safe in your Home?: Yes Lack of Transportation: No Lack of Food: Never True Current Housing: I Have Housing Concerned About Future Housing: No Difficulty Paying Gas/Electric Bills: No Difficulty Paying for Meds: No Currently Unemployed: No Education: High School Diploma/GED Difficulty w/ Childcare or Family Care: No Gender identity (if verbalized by the patient): Female Spiritual care concerns: No Meds Home Medications and Allergies Home Medications ?Medication ?Instructions ?Recorded ?Confirmed ?Type NM VIT D3 (ALEJO) 2000IU TAB See Rx Instructions .Route 06/12/23 10/02/24 Rx .COMPLEX #90 tabs benzonatate 200 mg capsule 200 mg PO TID PRN cough #20 caps 10/18/23 10/02/24 Rx albuterol sulfate 90 mcg/actuation See Rx Instructions .Route 01/17/24 10/02/24 Rx aerosol inhaler .COMPLEX #9 grams alendronate 70 mg tablet 70 mg PO WEEKLY #13 tabs 03/25/24 10/02/24 Rx losartan 100 mg tablet See Rx Instructions .Route 08/19/24 10/02/24 Rx .COMPLEX #90 tabs hydrocodone 7.5 mg-acetaminophen 1 tablet PO QID PRN Pain #120 tabs 09/06/24 10/02/24 Rx 325 mg tablet hydrochlorothiazide 25 mg tablet See Rx Instructions .Route 09/30/24 10/02/24 Rx .COMPLEX #90 tabs exemestane 25 mg tablet 25 mg PO DAILY cough 10/02/24 10/02/24 History guaifenesin 600 mg tablet, 600 mg PO ONCE cough 10/02/24 10/02/24 History extended release 12 hr (Mucinex) Allergies Allergy/AdvReac Type Severity Reaction Status Date / Time No Known Allergies Allergy Verified 10/02/24 14:02 Vital Signs Vital Signs - 24 hr 10/06/24 15:10 10/06/24 20:00 10/06/24 20:27 Temperature 37.5 C 36.9 C Pulse Rate 97 94 Respiratory Rate 16 20 Blood Pressure 124/84 119/74 Pulse Oximetry 99 95 93 Oxygen Delivery Nasal Cannula Oxygen Flow Rate 1 Fraction of Inspired Oxygen 10/07/24 04:21 10/07/24 07:16 10/07/24 09:21 Temperature 36.5 C Pulse Rate 73 Respiratory Rate 18 18 Blood Pressure 102/67 Pulse Oximetry 93 91 91 Oxygen Delivery Nasal Cannula Nasal Cannula Oxygen Flow Rate 1 2 Fraction of Inspired Oxygen 24 Exam Const: General: cooperative and comfortable HENMT: Head: normal to inspection Ears: hearing grossly normal bilaterally Eyes: General: appearance normal, both eyes and all related structures Neck: Neck: normal visual inspection Chest: Chest palpation & inspection: normal inspection of the chest Resp: Effort & Inspection: normal respiratory effort and able to speak in complete sentences Auscultation: no crackles, no rales, no rhonchi, no wheezes and diminished lung sounds Other: decreased breath sounds left base. No wheezes. Cardio: Jugular venous distension: no JVD GI: Inspection: normal to inspection GI Palp: No abdominal tenderness Skin: General skin exam: normal color Neuro: General: oriented to person, oriented to place and oriented to time Extrem: General: normal to inspection Psych: Appearance: grossly normal Results Laboratory Findings 10/07/24 04:37 10/07/24 04:37 ABG, PT/INR, D-dimer: PT/INR, D-dimer PT 14.6 Seconds (11.1-14.7) 10/02/24 10:08 INR 1.1 10/02/24 10:08 D-Dimer > 20.00 ug/mL (<0.48) H 10/06/24 09:20 Abnormal lab findings: Abnormal Labs 10/02/24 10/02/24 10/02/24 10:06 10:08 14:24 RBC 3.90 L Hgb 10.6 L Hct 34.9 L MCHC 30.4 L RDW 15.9 H MPV Neut % (Auto) 73.3 H Lymph % (Auto) 14.9 L D-Dimer BUN 18 H Creatinine 1.65 H Estimated GFR 29 L NT-Pro-B Natriuret Pep 922 H Total Protein Albumin Pleural RBC [id number] H Pleural Nuc Cells 2620 H Pleural Neutrophils 75 H 10/03/24 10/04/24 10/05/24 05:09 05:17 05:28 RBC 3.59 L 3.39 L 3.36 L Hgb 9.9 L 9.2 L 9.2 L Hct 31.8 L 30.4 L 30.1 L MCHC 31.1 L 30.3 L 30.6 L RDW 15.7 H 15.5 H 15.5 H MPV 11.0 H 10.9 H 10.6 H Neut % (Auto) 73.3 H Lymph % (Auto) 14.6 L D-Dimer BUN 18 H 19 H Creatinine 1.51 H 1.57 H 1.49 H Estimated GFR 33 L 31 L 33 L NT-Pro-B Natriuret Pep Total Protein 6.2 L Albumin 3.4 L Pleural RBC Pleural Nuc Cells Pleural Neutrophils 10/06/24 10/06/24 10/07/24 05:13 09:20 04:37 RBC 3.03 L 3.04 L Hgb 8.2 L 8.3 L Hct 27.7 L 27.2 L MCHC 29.6 L 30.5 L RDW 15.4 H 15.5 H MPV 11.0 H 11.0 H Neut % (Auto) Lymph % (Auto) D-Dimer > 20.00 H BUN 22 H 19 H Creatinine 1.42 H 1.39 H Estimated GFR 35 L 36 L NT-Pro-B Natriuret Pep Total Protein 6.1 L 6.2 L Albumin 3.3 L 3.3 L Pleural RBC Pleural Nuc Cells Pleural Neutrophils
[2024-10-07 21:17] VITALS: BP 116/61; PULSE 89; RESP 22; TEMP 36.6; O2SAT 100
[2024-10-08] MEDS: MORPHINE SULFATE (*CRX) 2 MG/ML INJ IV PUSH (03:17)
[2024-10-08 04:51] VITALS: BP 110/67; PULSE 91; RESP 22; TEMP 36.8; O2SAT 100
[2024-10-08 05:21] LABS: Hematocrit 27.7 % (37.0-47.0); Hemoglobin 8.5 g/dL (12.0-15.0); Mean Corpuscular HGB Conc 30.7 g/dl (32-36); Mean Corpuscular Hemoglobin 27.6 pg (26-34); Mean Corpuscular Volume 89.9 fl (80-100); Mean Platelet Volume 10.7 fl (7.4-10.4); Platelet Count Result 178 k/mm3 (150-375); Red Blood Count 3.08 M/mm3 (4.2-5.4); Red Cell Distribution Width 15.3 % (11.5-14.5); White Blood Count 6.9 K/mm3 (4.5-10.0)
[2024-10-08 05:33] LABS: Alanine Aminotransferase 7 U/L (6-35); Albumin Level 3.4 g/dL (3.5-5.1); Alkaline Phosphatase 70 U/L (38-126); Anion Gap 8 mmol/L (4-12); Aspartate Amino Transferase 27 U/L (14-36); Bilirubin,Total 0.4 mg/dL (0.2-1.3); Blood Urea Nitrogen 18 mg/dL (7-17); Calcium 9.2 mg/dL (8.4-10.2); Carbon Dioxide 28 mmol/L (22-30); Chloride 105 mmol/L (98-107); Estimated Glomerular Filt Rate 36; Glucose 93 mg/dL (65-110); Potassium 4.1 mmol/L (3.4-5.0); Sodium 141 mmol/L (137-145); Total Protein 6.4 g/dL (6.3-8.2)
[2024-10-08 08:24] VITALS: BP 105/64
[2024-10-08 08:25] VITALS: O2SAT 100
[2024-10-08] MEDS: ALENDRONATE SODIUM 70 MG TABLET PO (08:25)
[2024-10-08] MEDS: AMOXICILLIN/CLAVULANATE K 875-125 MG TAB 1 TABLET PO (08:25)
--- NOTE | 2024-10-08 08:34 | PM.IMPN ---
Progress Note: A&P Assessment and Plan (1) Bacteremia: Code(s): R78.81 - Bacteremia Status: Acute Assessment and Plan: Blood culture growing staph haemolytics in one bottle thus far. Started on vancomycin on 10/03, discontinued. Continue to monitor cultures. Repeat cultures on 10/04, NGTD. Discussed with Dr. Beck, cardiology to reread echo to rule out endocarditis. Reread of echo showed no definite evidence of endocarditis. (2) Acute respiratory failure with hypoxia: Code(s): J96.01 - Acute respiratory failure with hypoxia Status: Acute Assessment and Plan: Spo2 87% on room air, requiring 2L on admission. Likely secondary to patients worsening effusion as seen on imaging. - Oxygen supplementation: 2 L NC, baseline RA. Continue to wean as tolerated to maintain spo2 > 90% - Patient will require a home O2 eval prior to discharge - See plan for pleural effusion below (3) Pleural effusion: Code(s): J90 - Pleural effusion, not elsewhere classified Status: Acute Assessment and Plan: - DDx: Malignant effusion vs exudative effusion vs transudative - CXR 09/27: 1: Left midthoracic mass, compatible with bronchogenic carcinoma until proven otherwise. 2: Moderate left pleural effusion. 3: Right basilar atelectasis. - CXR, 10/02: 1. Increasing moderate to large left pleural effusion. 2. Increasing opacities in the left mid to upper and right lower lung zones which could represent atelectasis or pneumonia. - s/p diagnostic thoracentesis on 10/02 with 1L blood dark maroon colored fluid removed. Repeat CXR showed improvement. 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 Transitioned to oral azithromycin (course completed) and Augmentin on 10/05-10/08. Sputum culture preliminary showing normal derek. - BNP mildly elevated 922, echo showed LVEF 60-65% and normal biventricular size. monitor I&Os and daily weights. Patient remains on increased oxygen supplementation. Repeat CXR showed worsening airspace consolidation left mid and lower thorax that is consistent with pneumonia. Patient remains on antibiotics for pneumonia, transitioned to orals to prevent further volume overload. CT chest showed increased left sided pleural effusion Given patients cancer, sedentary lifestyle, no anticoagulation, continued o2 requirement, and d dimer >20. Will hold on anticoagulation pending VQ scan results. History of CKD. VQ scan with low or intermediate probability for PE. Chest XR today showed continued worsening of the left pleural effusion Pulmonology consulted Discussed patient case with pulmonology Dr. Chen. Will plan to call patients oncologist Dr. Ortez tomorrow to discuss plan for possible pleurx placement given the worsening of patients effusion despite recent thoracentesis. Patient will require transfer to another facility for pleurx as pulmonology does not perform them here. Dr. Chen advised against repeat thoracentesis given risk of complications and the goal of definitive treatment being the plan. (4) Lung cancer: Onset Date: 07/2024 Qualifiers: Laterality: left Lung location: upper lobe of lung Qualified Code(s): C34.12 - Malignant neoplasm of upper lobe, left bronchus or lung Code(s): C34.90 - Malignant neoplasm of unspecified part of unspecified bronchus or lung Status: Acute Assessment and Plan: - Reviewed oncology Dr. Ortez note from 08/30/24. Plan for immunotherapy to start in October. Not a chemo candidate. Currently undergoing radiation, last treatment on 09/26. next scheduled 10/02 however missed appointment as she sought treatment in the ED for SOB. Discussed patient case with pulmonology Dr. Chne. Will plan to call patients oncologist Dr. Ortez tomorrow to discuss plan for possible pleurx placement given the worsening of patients effusion despite recent thoracentesis. Patient will require transfer to another facility for pleurx as pulmonology does not perform them here. Dr. Chen advised against repeat thoracentesis given risk of complications and the goal of definitive treatment being the plan. (5) Chronic kidney disease, stage 3a: Onset Date: 11/2020 Code(s): N18.31 - Chronic kidney disease, stage 3a Status: Chronic Assessment and Plan: - creatinine 1.65 and GFR 29 on admission, previously 1.85 and GFR 26 on 09/27. Appears at baseline. - trend renal function - monitor I/O - avoid nephrotoxic medications - renally dose medications - trend electrolytes, correct as needed (6) Hypertension: Qualifiers: Hypertension type: primary hypertension Qualified Code(s): I10 - Essential (primary) hypertension Code(s): I10 - Essential (primary) hypertension Status: Chronic Assessment and Plan: - chronic, continue home medications - Losartan 100 mg daily, hydrochlorothiazide 25 mg - stable, continue to monitor Subjective Date/time seen: 10/08/24 08:34 Interval history: 89 yeawr old female with past medical history of non-small cell lung cancer (left upper lobe, currently undergoing radiation), COPD, breast cancer (left 2004, right 2005 s/p lumpectomy, radiation, endocrine therapy), and HTN presents to the hospital with shortness of breath. Dr. Zaragoza hospitalist accepting hospitalist at [facility] on tele floor. Review of Systems Review of Systems: All systems reviewed & are unremarkable except as noted in HPI and below Exam Narrative: AF HR General: female in no acute respiratory distress who is nontoxic appearing, sitting up in bed HEENT: Normocephalic. Atraumatic. Extraocular movement intact. Sclera clear and anicteric. No facial asymmetry. Chest: Lungs with coarse to auscultation to left lower base. Speaks full sentences. CV: Heart was regular rate and rhythm. Abd: Abdomen was soft. Nontender. Nondistended. Positive bowel sounds. Ext: No clubbing, cyanosis, or edema. DP pulses bilaterally. Neuro: Patient is alert and oriented x3. Speech is clear. Objective Data Vital Signs Vital Signs: Vital Signs - 24 hr 10/07/24 09:21 10/07/24 14:00 10/07/24 20:00 Temperature 98.2 F Pulse Rate 86 Respiratory Rate 18 17 Blood Pressure 101/58 L Pulse Oximetry 91 100 Oxygen Delivery Nasal Cannula Nasal Cannula Oxygen Flow Rate 2 1 10/07/24 21:17 10/08/24 04:51 10/08/24 08:24 Temperature 98 F 98.3 F Pulse Rate 89 91 Respiratory Rate 22 H 22 H Blood Pressure 116/61 110/67 105/64 Pulse Oximetry 100 100 Oxygen Delivery Oxygen Flow Rate Intake/Output Intake/Output: Intake & Output 10/05/24 10/06/24 10/07/24 10/08/24 23:59 23:59 23:59 23:59 Intake Total 600 750 720 Balance 600 750 720 Meds/Results Medications: Active Medications Generic Name Dose Route Start Last Admin Trade Name Freq PRN Reason Stop Dose Admin Acetaminophen 650 mg 10/02/24 14:06 10/03/24 09:17 Acetaminophen 325 Mg Tablet PO 650 mg Q4H PRN Administration Mild Pain (1-3) or Fever Hydrocodone Bitart/Acetaminophen 1 tab 10/02/24 14:06 10/07/24 20:34 Hydrocodone/Acetaminophen (*Crx) 5-325 Mg Tablet PO 1 tab Q4H PRN Administration Pain Rated 4-6 Albuterol 2 puff 10/02/24 22:50 Albuterol Sulfate (*Sp) Aerosol 1 Puff INHALATION Q12H PRN Shortness Of Breath Alendronate Sodium 70 mg 10/08/24 07:30 10/08/24 08:25 Alendronate Sodium 70 Mg Tablet PO 70 mg Tu@0730 LANDY Administration Amoxicillin/Clavulanate Potassium 1 tablet 10/05/24 21:00 10/08/24 08:25 Amoxicillin/Clavulanate K 875-125 Mg Tab PO 10/08/24 23:59 1 tablet Q12HR LANDY Administration Guaifenesin 600 mg 10/02/24 22:52 10/06/24 08:14 Guaifenesin 12 Hr 600 Mg Tabcr PO 600 mg Q12HR PRN Administration Congestion Hydrochlorothiazide 25 mg 10/03/24 09:00 10/07/24 09:21 Hydrochlorothiazide 25 Mg Tablet PO 25 mg DAILY LANDY Administration Losartan Potassium 100 mg 10/03/24 09:00 10/07/24 09:21 Losartan Potassium 100 Mg Tablet PO 100 mg DAILY LANDY Administration Miscellaneous Information 0 each 10/02/24 23:10 10/07/24 12:52 Exemestane 25 Mg Tablet- Nonformulary. Please Send To Pharmacy For Verification When Home XX 11/01/24 23:09 Not Given CLARIFY LANDY Morphine Sulfate 2 mg 10/02/24 14:06 10/08/24 03:17 Morphine Sulfate (*Crx) 2 Mg/Ml Inj IV PUSH 2 mg Q2H PRN Administration Pain Rated 7-10 Non-Formulary Medication 25 mg 10/03/24 09:00 Exemestane PO 11/02/24 08:59 DAILY LANDY Promethazine HCl 12.5 mg 10/02/24 14:06 10/07/24 02:26 Promethazine Hcl 25 Mg/Ml Ampul IV PUSH 12.5 mg Q6H PRN Administration Nausea Senna/Docusate Sodium 1 tab 10/05/24 21:00 10/07/24 20:01 Senna/Docusate Sodium Tablet PO Not Given HS LANDY Sodium Chloride 1 spray 10/04/24 16:38 Saline 0.65% Anibal Soln 44 Ml Btl NASAL Q6HR PRN Congestion Radiology Results: ITS Impressions Thoracentesis Ultrasound 10/02/24 17:17 IMPRESSION: 1. Successful ultrasound-guided thoracentesis yielding 1000 mL of bloody dark maroon-colored fluid. Chest CT 10/05/24 17:26 IMPRESSION: Increased left-sided pleural effusion, as detailed above. Redemonstration of patient's known biopsy-proven malignancy within the left upper lobe. Additional findings within the chest consistent with diffuse metastatic disease (lung versus breast). Morphologically suspicious lymph node within the left axilla, as detailed above. Chest X-Ray 10/07/24 13:52 IMPRESSION: 1. Increasing moderate-sized left pleural effusion with associated atelectasis and/or pneumonia in the left mid to lower lung zone. 2. Superimposed masslike opacity in the left midlung zone and a few subtle smaller scattered bilateral pulmonary nodules consistent with primary lung cancer and associated metastatic disease. Pulmonary Perfusion Imaging 10/07/24 15:00 IMPRESSION: 1. Nondiagnostic, low or intermediate probability for pulmonary embolism. Labs Labs: Laboratory Results - last 24 hr 10/02/24 10/08/24 14:24 04:49 WBC 6.9 RBC 3.08 L Hgb 8.5 L Hct 27.7 L MCV 89.9 MCH 27.6 MCHC 30.7 L RDW 15.3 H Plt Count 178 MPV 10.7 H Sodium 141 Potassium 4.1 Chloride 105 Carbon Dioxide 28 Anion Gap 8 BUN 18 H Creatinine 1.39 H Estim Creat Clear Calc Not Reportable Estimated GFR 36 L Glucose 93 Calcium 9.2 Total Bilirubin 0.4 AST 27 ALT 7 Alkaline Phosphatase 70 Total Protein 6.4 Albumin 3.4 L Pleural Total Protein TNP Pleural Albumin 2.9 Pleural LDH TNP Pleural Amylase TNP Pleural Triglycerides TNP Quality VTE Prophylaxis VTE prophylaxis: mechanical ordered
--- NOTE | 2024-10-08 10:47 | PCNFU ---
Nutrition Follow-Up Complete: Moderate Protein Calorie Malnutrition as related to inadequate energy intake as evidenced by poor po intake reported, moderate subcutaneous fat loss (orbital fat pads); mild muscle wasting (temporalis) and weight loss of 20 ibs (10%) in 3 months. Goal: Meet estimated nutritional needs. Patient is progressing towards goal. We will continue current goal. Pt current nutrition is Heart Healthy with Ensure Enlive BID. Last recorded weight is 83.7 kg,81.4 kg on admit. Bowel Motility: Last reported BM 10/08 Labs Reviewed: Cr 1.39, BUN 18, Alb 3.4 Meds Noted: Senokot,Augmentin Skin: WNL Additional Notes: Patient remains on a heart healthy diet. Oral Intake around 50% of meals. Ensure Enlive providing an additional 350 kcal land 20 gm protein. Agree with diet orders. Will monitor weight, labs, skin, diet orders, meds every 5 days.
[2024-10-08 10:57] VITALS: O2SAT 98
[2024-10-08 11:37] VITALS: O2SAT 92
[2024-10-08 14:00] VITALS: BP 106/59; PULSE 101; RESP 17; TEMP 37.2; O2SAT 96
[2024-10-08] MEDS: HYDROcodone/acetaminophen (*CRX) 5-325 MG TABLET 1 TAB PO (14:04)
--- NOTE | 2024-10-08 15:31 | PM.TDS ---
Transfer Discharge Sum: Prov Provider Date of admission: 10/03/24 12:20 Primary care physician: Raymond Carter MD Admitting clinician: Richard Velazquez MD Consults: 10/05/24 Consult to Physician Routine Comment: Consulting Provider: [employer] group to consult: pulmonology Reason for consultation: worsening effusion Has provider been notified: Yes 10/07/24 Consult to Physician Routine Comment: Left DR CAMPA @1505 10/07 us Consulting Provider: Brittani Burkett [employer] group to consult: pulmonology Reason for consultation: pleural effusion with hx lung CA Has provider been notified: Yes Attending physician on discharge: Marko Denise Discharging clinician: Gilma Xiong Anticipated date of transfer: 10/08/24 Receiving physician/facility: Dr. Zaragoza (hospitalist)/[facility] DS: Admitting Diagnosis Discharge Date 10/08/2024 Admitting Diagnosis bacteremia acute respiratory failure with hypoxia pleural effusion lung cancer CKD HTN DS: Discharge Diagnosis Discharge Diagnosis (1) Bacteremia: Code(s): R78.81 - Bacteremia Status: Acute (2) Acute respiratory failure with hypoxia: Code(s): J96.01 - Acute respiratory failure with hypoxia Status: Acute (3) Pleural effusion: Code(s): J90 - Pleural effusion, not elsewhere classified Status: Acute (4) Lung cancer: Onset Date: 07/2024 Qualifiers: Laterality: left Lung location: upper lobe of lung Qualified Code(s): C34.12 - Malignant neoplasm of upper lobe, left bronchus or lung Code(s): C34.90 - Malignant neoplasm of unspecified part of unspecified bronchus or lung Status: Acute (5) Chronic kidney disease, stage 3a: Onset Date: 11/2020 Code(s): N18.31 - Chronic kidney disease, stage 3a Status: Chronic (6) Hypertension: Qualifiers: Hypertension type: primary hypertension Qualified Code(s): I10 - Essential (primary) hypertension Code(s): I10 - Essential (primary) hypertension Status: Chronic Transfer Discharge Sum: Med Medications Active and Home Medications: Home Medications NM VIT D3 (ALEJO) 2000IU TAB See Rx Instructions .Route .COMPLEX #90 tabs 06/12/23 [Rx Confirmed 10/02/24] benzonatate 200 mg capsule 200 mg PO TID PRN cough #20 caps 10/18/23 [Rx Confirmed 10/02/24] albuterol sulfate 90 mcg/actuation aerosol inhaler See Rx Instructions .Route .COMPLEX #9 grams 01/17/24 [Rx Confirmed 10/02/24] alendronate 70 mg tablet 70 mg PO WEEKLY #13 tabs 03/25/24 [Rx Confirmed 10/02/24] losartan 100 mg tablet See Rx Instructions .Route .COMPLEX #90 tabs 08/19/24 [Rx Confirmed 10/02/24] hydrocodone 7.5 mg-acetaminophen 325 mg tablet 1 tablet PO QID PRN Pain #120 tabs 09/06/24 [Rx Confirmed 10/02/24] hydrochlorothiazide 25 mg tablet See Rx Instructions .Route .COMPLEX #90 tabs 09/30/24 [Rx Confirmed 10/02/24] exemestane 25 mg tablet 25 mg PO DAILY cough 10/02/24 [History Confirmed 10/02/24] guaifenesin 600 mg tablet, extended release 12 hr (Mucinex) 600 mg PO ONCE cough 10/02/24 [History Confirmed 10/02/24] Active Medications Acetaminophen (Acetaminophen 325 Mg Tablet) 650 mg PO Q4H PRN PRN Reason: Mild Pain (1-3) or Fever Last Admin: 10/03/24 09:17 Dose: 650 mg Hydrocodone Bitart/Acetaminophen (Hydrocodone/Acetaminophen (*Crx) 5-325 Mg Tablet) 1 tab PO Q4H PRN PRN Reason: Pain Rated 4-6 Last Admin: 10/08/24 14:04 Dose: 1 tab Albuterol (Albuterol Sulfate (*Sp) Aerosol 1 Puff) 2 puff INHALATION Q12H PRN PRN Reason: Shortness Of Breath Alendronate Sodium (Alendronate Sodium 70 Mg Tablet) 70 mg PO Tu@0730 LANDY Last Admin: 10/08/24 08:25 Dose: 70 mg Amoxicillin/Clavulanate Potassium (Amoxicillin/Clavulanate K 875-125 Mg Tab) 1 tablet PO Q12HR LANDY Stop: 10/08/24 23:59 Last Admin: 10/08/24 08:25 Dose: 1 tablet Guaifenesin (Guaifenesin 12 Hr 600 Mg Tabcr) 600 mg PO Q12HR PRN PRN Reason: Congestion Last Admin: 10/06/24 08:14 Dose: 600 mg Hydrochlorothiazide (Hydrochlorothiazide 25 Mg Tablet) 25 mg PO DAILY [facility] Last Admin: 10/08/24 13:04 Dose: Not Given Losartan Potassium (Losartan Potassium 100 Mg Tablet) 100 mg PO DAILY [facility] Last Admin: 10/08/24 13:04 Dose: Not Given Miscellaneous Information (Exemestane 25 Mg Tablet- Nonformulary. Please Send To Pharmacy For Verification When Home) 0 each XX CLARIFY [facility] Stop: 11/01/24 23:09 Last Admin: 10/07/24 12:52 Dose: Not Given Morphine Sulfate (Morphine Sulfate (*Crx) 2 Mg/Ml Inj) 2 mg IV PUSH Q2H PRN PRN Reason: Pain Rated 7-10 Last Admin: 10/08/24 03:17 Dose: 2 mg Non-Formulary Medication (Exemestane) 25 mg PO DAILY [facility] Stop: 11/02/24 08:59 Promethazine HCl (Promethazine Hcl 25 Mg/Ml Ampul) 12.5 mg IV PUSH Q6H PRN PRN Reason: Nausea Last Admin: 10/07/24 02:26 Dose: 12.5 mg Senna/Docusate Sodium (Senna/Docusate Sodium Tablet) 1 tab PO HS [facility] Last Admin: 10/07/24 20:01 Dose: Not Given Sodium Chloride (Saline 0.65% Anibal Soln 44 Ml Btl) 1 spray NASAL Q6HR PRN PRN Reason: Congestion Transfer Discharge Sum: Hosp Hospital Course Hospital course: Lauren Martinez is a 89 year old female with past medical history of non-small cell lung cancer (left upper lobe, currently undergoing radiation), COPD, breast cancer (left 2004, right 2005 s/p lumpectomy, radiation, endocrine therapy), and HTN presents to the hospital with shortness of breath. Spo2 87% on room air, requiring 2L on admission. Likely secondary to patients worsening effusion as seen on imaging. Chest XR on 10/02 showed increasing moderate to large left pleural effusion with increasing opacities in the left mid to upper and right lower lung zones which could represent atelectasis or pneumonia. Status post diagnostic thoracentesis on 10/02 with 1L blood dark maroon colored fluid removed. Repeat CXR showed improvement. Started on antibiotics for pneumonia concern which were completed during admission. BNP mildly elevated 922, echo showed LVEF 60-65% and normal biventricular size. Pleural fluid pathology showed metastatic pulmonary adenocarcinoma. Despite continued treatment patient remained on oxygen supplementation. Repeat CXR showed worsening airspace consolidation left mid and lower thorax that is consistent with pneumonia. CT chest showed increased left sided pleural effusion. Given patients cancer, sedentary lifestyle, no anticoagulation, continued o2 requirement, and d dimer >20 a VQ scan was done showed low risk for PE. Pulmonology consulted and recommended transfer to higher level of care facility for a definitive procedure such as PleurX or VATS with pleurodesis. Called patient oncologist Dr. Ortez office who is in agreement with VATS vs pleurx proceed and prefers patient be transferred to [facility] hospital. Patient got acceptance to [facility] to a tele floor by Dr. Zaragoza. Patient transferred to [facility] in a stable condition. Time Spent with Patient Time attestation: Total time spent providing and/or coordinating transfer services: Total time spent: Greater than 30 minutes Exam Narrative: AF HR 101 RR 17 SpO2 96 1LNC (baseline RA) BP 106/59 General: female in no acute respiratory distress who is nontoxic appearing, sitting up in chair HEENT: Normocephalic. Atraumatic. Extraocular movement intact. Sclera clear and anicteric. No facial asymmetry. Chest: Lungs with coarse to auscultation to left lower base. Speaks full sentences. CV: Heart was regular rate and rhythm. Abd: Abdomen was soft. Nontender. Nondistended. Positive bowel sounds. Ext: No clubbing, cyanosis, or edema. DP pulses bilaterally. Neuro: Patient is alert and oriented x3. Speech is clear. DS: Data Data Completed and Pending Completed studies during hospitalization: VQ scan Chest XR CHest CT Chest XR Thoracentesis US Chest XR Chest XR Pending studies at discharge: Pending at discharge 10/02/24 15:19 Cytology [PTH] Routine Labs on day of discharge: Labs from last 24 hours 10/08/24 04:49 WBC 6.9 RBC 3.08 L Hgb 8.5 L Hct 27.7 L MCV 89.9 MCH 27.6 MCHC 30.7 L RDW 15.3 H Plt Count 178 MPV 10.7 H Sodium 141 Potassium 4.1 Chloride 105 Carbon Dioxide 28 Anion Gap 8 BUN 18 H Creatinine 1.39 H Estim Creat Clear Calc Not Reportable Estimated GFR 36 L Glucose 93 Calcium 9.2 Total Bilirubin 0.4 AST 27 ALT 7 Alkaline Phosphatase 70 Total Protein 6.4 Albumin 3.4 L Preliminary micro results at discharge 10/04/24 12:11 Blood Culture - Preliminary Blood 10/04/24 12:06 Blood Culture - Preliminary Blood
== END 2024-10-08 15:30 | disposition short-term general hospital (02) | DRG 180 ==
LOC: ANHED 10:28 → ANH2MED 14:33
PROVIDERS: Student in an Organized Health Care Education/Training Program; Admitting Provider Internal Medicine; Emergency Provider Emergency Medicine; PCP Family Medicine Adolescent Medicine; Visit Provider Student in an Organized Health Care Education/Training Program
DX: C34.12 Malignant neoplasm of upper lobe, left bronchus or lung (principal); J18.9 Pneumonia, unspecified organism; J96.01 Acute respiratory failure with hypoxia; J91.0 Malignant pleural effusion; R04.2 Hemoptysis; J44.0 Chronic obstructive pulmonary disease with (acute) lower respiratory infection; E44.0 Moderate protein-calorie malnutrition; R78.81 Bacteremia; B95.7 Other staphylococcus as the cause of diseases classified elsewhere; I12.9 Hypertensive chronic kidney disease with stage 1 through stage 4 chronic kidney disease, or unspecified chronic kidney disease; N18.31 Chronic kidney disease, stage 3a; Z85.3 Personal history of malignant neoplasm of breast; Z96.643 Presence of artificial hip joint, bilateral; Z90.710 Acquired absence of both cervix and uterus; Z87.891 Personal history of nicotine dependence; Z68.37 Body mass index [BMI] 37.0-37.9, adult
CPT/HCPCS: 32555; 36415; 71045; 71046; 71250; 78582; 80053; 80202; 82042; 82150; 82945; 83615; 83880; 83986; 84145; 84157; 84311; 84478; 85025; 85027; 85380; 85610; 85730; 87040; 87070; 87075; 87181; 87205; 87641; 88108; 88305; 88342; 89051; 93005; 93306; 96365; 96367; 96375; 97161; 97165; 97530; 97535; 99285; A9270; A9540; A9558; G0378; J0456; J0696; J2270; J2550; J3370

== ENCOUNTER 2024-11-12 11:30 | Emergency (ER) | payer MEDICARE, SELFPAY ==
[2024-11-12] VITALS (23 sets, daily range): BP systolic 108–157; BP diastolic 52–111; PULSE 82–119; RESP 18–29; TEMP 36.9–37.3; O2SAT 95–100
--- NOTE | ~2024-11-12 | CT_ITS ---
EXAM: CTA chest PE protocol - 11/12/2024 13:22 CDT History: 89 years old Female with Hemoptysis, shortness of breath TECHNIQUE: CTA of the chest with contrast, according to pulmonary embolism protocol. Reformatted cor onal, sagittal, and 3-D MIP images were obtained. 100 cc of Optiray 350 were used for the study. Auto matic exposure control was used for this study. COMPARISON: 10/05/2024 FINDINGS: EXAM QUALITY: Adequate visualization of the pulmonary arteries to the lobar level. PULMONARY ARTERIAL VASCULATURE: No evidence of pulmonary embolism in main and lobar pulmonary arterie s. Limited evaluation for segmental and peripheral pulmonary arteries due to suboptimal contrast bolu s timing. VISUALIZED LOWER NECK: Thyroid gland appears normal. No supraclavicular lymphadenopathy. AIRWAYS: Patent centrally. Complete obliteration of the left lower lobe bronchus. LUNGS and PLEURA: Multiple multicystic subpleural nodules are seen in both lungs. These are significa ntly increased in size since last month. These are concerning for worsening metastatic disease versus less likely multiloculated pleural effusion. The largest of these is in the left lower lobe and rod ures 8.2 x 7.7 x 5.0 cm. Diffuse airspace disease in the left lung. MEDIASTINUM and REMY: Worsening left hilar lymphadenopathy. HEART AND PERICARDIUM: Cardiac chambers are normal in size. No pericardial fluid or thickening is pre sent. VASCULATURE: Thoracic aorta and pulmonary arteries are normal in caliber. CHEST WALL: Previously seen left axillary lymph node appears grossly unchanged and measures [address] changes in the right axilla. MUSCULOSKELETAL: No acute osseous abnormality. UPPER ABDOMEN: Bilateral simple renal cysts. Diffuse periaortic lymphadenopathy around the partially visualized abdominal aorta. IMPRESSION: No evidence of pulmonary embolism in main and lobar pulmonary arteries. Worsening metastatic disease in the left lung with endobronchial obliteration of left lower bronchus, as detailed above. This most likely is the cause of patient's shortness of breath and hemoptysis. Diffuse periaortic lymphadenopathy around the partially visualized abdominal aorta. Diffuse airspace disease in the left lung. Reviewed, dictated and finalized at location A. IMPRESSION: No evidence of pulmonary embolism in main and lobar pulmonary arteries. Worsening metastatic disease in the left lung with endobronchial obliteration o f left lower bronchus, as detailed above. This most likely is the cause of luna ent's shortness of breath and hemoptysis. Diffuse periaortic lymphadenopathy around the partially visualized abdominal ao rta. Diffuse airspace disease in the left lung.
--- OUTSIDE RECORDS SUMMARY | 2024-11-12 11:32 | XMS_ITS | Data Portability ---
Author Organization [place] [facility], Main Office Address [address] [place] [address] Care Team Providers Care [employer] Name Role Phone REMEDIOS MELGOZA Primary Care [...] DO Not Attach Compendium, Do Not Delete/merge, [id number] 11:27:59 Surgeries None recorded. Imaging XR, hand 2022 023 [facility] [place], [address], [place], [address], 09:06:06 XR, wrist 2022 023 [facility] [place], [address], [place], [address], 12:13:48 Medication Orders ropivacaine (PF) 5 mg/mL [...] more view No observ ation record ed. [id number] [facility] [place] [address], [place], [address], 06/22/2022 12:52:38 05/20/19 23 05/20/2022 XR, wrist , 3 or more view No observ ation record ed. [id number] [facility] [place] [address], [place], [address], 06/22/2022 12:52:38 06/10/19 23 06/14/2022 XR, wrist , 3 or more view No observ ation record ed. [id number] [facility] [place] [address], [place], [address], 06/22/2022 12:52:38 07/21/19 23 XR, wrist No observ ation record ed. [facility] [place] [address], [place], [address], 07/29/2022 09:07:18 02/29/20 23 XR, hand No observ ation record ed. [email or web address] [facility] [place] [address], [place], [address], 02/28/2023 10:08:37 Result Notes None recorded. Problems Name Problem SNOMED Code Status Onset Date Resolution Date Notes Provider Name and Address Organization Details Recorded Time Radiothera py follow-up 805688850 Active Not Available [facility] 3 12:48:41 Morbid obesity 085999042 Active Not Available [facility] 3 12:48:41 Osteoarthr itis of hip 416758523 Active Not Available [facility] 3 12:48:41 Current tear of medial cartilage AND/OR meniscus of knee Active Not Available [facility] 3 12:48:41 Knee pain Active Not Available [facility] 3 12:48:41 Osteoarthr itis 637005439 Active Not Available [facility] 3 12:48:41 Pain of hip region 87849205 Active Not Available [facility] 3 12:48:41 Derangemen t of knee 35143036 Active Not Available [facility] 3 12:48:41 Closed fracture of distal end of radius 76926322 Active 2021 Not Available [facility] 3 12:48:41 Pain of left hand 9517410856541 03 Active 2022 NOHEMY [place], [place] [facility] 3 10:08:30 Problem Notes None recorded. Procedures Surgical History Date Name Laterality Status Provider Name and Address Organization Details Recorded Time 3 Ortho - Cortisone Injection completed Doe Archer MD [address] [place] [address], [facility] [address], [address], [employer] 03/13/2023 17:44:25 Imaging Results None recorded. Procedure [...] administe red by the provider 11/28 completed ND: 0003- 0494- 20 Not Available Not Available [...] %) injection solution in office 2022 active [facility] 23138 -064- 01 Not Available Not Available Not Available Vitals Date Recorded Body mass index (BMI) Body height Body weight Provider Name and Address Organization Details Last Updated DateTime 06/10/2022 38.4 kg/m2 149.86 cm 77540.55 g Not Available [facility] 06/22/2022 12:46:42 Date Recorded Body height Body mass index (BMI) Body weight Provider Name and Address Organization Details Last Updated DateTime 07/20/2022 149.86 cm 41.8 kg/m2 69008.62 g NOHEMY Cas[place] [facility] 07/20/2022 11:47:27 Date Recorded Body height Body mass index (BMI) Body weight Provider Name and Address Organization Details Last Updated DateTime 09/14/2022 149.86 cm 39.8 kg/m2 98806.7 g NOHEMY Casas [facility] 09/14/2022 11:18:41 Date Recorded Body height Body mass index (BMI) Body weight Provider Name and Address Organization Details Last Updated DateTime 11/30/2022 149.86 cm 41.8 kg/m2 13550.62 NOHEMY Villavicencio [facility] 11/30/2022 14:48:04 Date Recorded Body height Body mass index (BMI) Body weight Provider Name and Address Organization Details Last Updated DateTime 02/28/2023 149.86 cm 41.6 kg/m2 47644.03 g NOHEMY Casas [facility] 02/28/2023 10:07:55 Social History Question Answer Notes LastModified by [employer] Details LastModified Time Tobacco Smoking Status Former Smoker Not Available [facility] 06/22/2022 12:46:01 When Did You Quit Smoking? 1-5yearssinc elastcigaret te [id number] Information not available 06/22/2022 Sex: Unknown Functional Status Question Answer Note LastModified by [employer] Details LastModified Time What is your level of alcohol consumption? None [id number] Information not available 06/22/2022 Mental Status None recorded. Family History Relationship Description Onset Age of this Age Resolved Age Notes LastModified by Organization Details LastModified Time Mother Family history of malignant neoplasm [id number] Not available 06/22/2022 12:46:28 Mother Hypertensive disorder [id number] Not available 06/22/2022 12:46:28 Medical History Condition Response ARTHRITIS Y CANCER: SPECIFY Y HYPERTENSION Y Gynecological HistoryNo gynecological history recorded. Obstetrics History GPAL:G 0 P 0 0 0 0 Past Encounters Encounter ID Performer Location Encounter Start Date Encounter Closed Date Diagnosis/Indication Diagnosis SNOMED-CT Code Diagnosis ICD10 Code Diagnosis Note [id number] Doe Archer MD [facility] [place] [address] [place] [address] 04/22/2022 00:00:00 04/22/2022 13:57:00 [id number] Doe Archer MD [facility] [place] [address] [place] [address] 05/04/2022 00:00:00 05/04/2022 12:49:52 [id number] Doe Archer MD [facility] [place] [address] [place] [address] 05/11/2022 00:00:00 05/11/2022 11:14:56 [id number] Doe Archer MD [facility] [place] [address] [place] [address] 05/20/2022 00:00:00 05/23/2022 09:45:41 [id number] Doe Archer MD [facility] [place] [address] [place] [address] 06/10/2022 00:00:00 06/10/2022 14:24:14 [id number] Doe Archer MD [facility] [place] [address] [place] [address] 07/20/2022 11:44:58 07/20/2022 12:02:58 Closed fracture of distal end of radius 37254404 S52.502A [id number] Doe Archer MD [facility] [place] [address] [place] [address] 09/14/2022 11:13:40 09/14/2022 11:45:34 Closed fracture of distal end of radius 09508247 S52.502A [id number] Doe Archer MD [facility] [place] [address] [place] [address] 11/30/2022 14:45:23 11/30/2022 14:59:44 Closed fracture of distal end of radius 48369868 S52.501D [id number] Doe Archer MD [facility] [place] [address] [place] [address] 02/28/2023 10:03:21 02/28/2023 11:43:15 Pain of left hand 0341867678 05161 M79.642 Health Concerns Section Related Observation LastModified by Organization Detai ls LastModified Time None Recorded Concern Status LastModified by Organization Details LastModified Time None Recorded Advance Directives Directive None Recorded Payers Insurance Date Sequence Insurance Name Policy Number Policy Raines Covered Member ID Raines Member ID Guarantor Name 03/14/2023 1 [employer] (MEDICARE REPLACEMENT/ ADVANTAGE - PPO) [id number] Lauren Martinez [id number] Lauren Martinez 07/12/2023 2 [place] Lauren Martinez [id number] Lauren Martinez 02/25/2023 [place] DURABLE MEDICAL EQUIPMENT Lauren Martinez [id number] Lauren Martinez OBGyn Episode No OBEpisode recorded.
--- OUTSIDE RECORDS SUMMARY | 2024-11-12 11:32 | XMS_ITS | Clinical Summary ---
Author Organization Unknown Care Team Providers [facility] Lodging Facilities Attendant Name Role Phone REMEDIOS HOWARD Unavailable U seferino BORDEN RN, REMEDIOS Unavailable Unavailabl e GANLUCAS PT, JELANI Unavailable Unavailable JONATAN CAMPER ASSEMBLER, JEVON Unavailable Unavailabl e RAKESH OT, RENETTA Unavailable Unavailable Payers Payer Name Policy Type Policy Number Effective Date Expira tion Date [facility] [id number] Problems Condition Name Condition Details Condition Category Status Onset Date Resolution Date Last Treatment Date Treating Clinician Comments PNEUMONIA, UNSPECIFIED ORGANISM Active 10-14 00:00: 00 Allergies, Adverse Reactions, Alerts Allergy Name Allergy Type Status Severity Reaction(s) Onset Date Inactive Date Treating Clinician Comments NO KNOWN ALLERGIES Propensity to adverse reactions Active 11-01 16:00: 43 Vital Signs Vital Name Observation Time Observation Value Commen ts Temperature 2024-11-12 10:16:00.000 98.2 [degF] Temperature 2024-11-06 12:06:00.000 97.9 [degF] Temperature 2024-11-05 11:41:00.000 98.5 [degF] Temperature 2024-11-04 14:47:00.000 97.7 [degF] Temperature 2024-11-01 03:30:00.000 97.8 [degF] BMI (%) 2024-11-02 08:45:11.000 35 kg/m2 Height 2024-11-02 08:44:57.000 59 [in_us] Pulse 2024-11-12 10:17:00.000 105 /min Pulse 2024-11-06 12:06:00.000 84 /min Pulse 2024-11-05 11:41:00.000 84 /min Pulse 2024-11-04 14:47:00.000 94 /min Pulse 2024-11-01 03:30:00.000 83 /min O2 Saturation (%) 2024-11-12 10:16:00.000 92 % O2 Saturation (%) 2024-11-06 12:06:00.000 95 % O2 Saturation (%) 2024-11-05 11:41:00.000 95 % O2 Saturation (%) 2024-11-04 14:47:00.000 93 % O2 Saturation (%) 2024-11-01 03:30:00.000 90 % Respirations 2024-11-12 10:16:00.000 20 /min Respirations 2024-11-06 12:06:00.000 18 /min Respirations 2024-11-05 11:41:00.000 18 /min Respirations 2024-11-04 14:47:00.000 19 /min Respirations 2024-11-01 03:30:00.000 20 /min Weight (lbs) 2024-11-04 14:47:00.000 177 [lb_av] Weight (lbs) 2024-11-02 08:45:11.000 176 [lb_av] Systolic Blood Pressure 2024-11-12 10:16:00.000 122 mm [Hg] Systolic Blood Pressure 2024-11-06 12:06:00.000 128 mm [Hg] Systolic Blood Pressure 2024-11-05 11:41:00.000 128 mm [Hg] Systolic Blood Pressure 2024-11-04 14:47:00.000 132 mm [Hg] Systolic Blood Pressure 2024-11-01 03:30:00.000 126 mm [Hg] Diastolic Blood Pressure 2024-11-12 10:16:00.000 68 mm [Hg] Diastolic Blood Pressure 2024-11-06 12:06:00.000 68 mm [Hg] Diastolic Blood Pressure 2024-11-05 11:41:00.000 78 mm [Hg] Diastolic Blood Pressure 2024-11-04 14:47:00.000 72 mm [Hg] Diastolic Blood Pressure 2024-11-01 03:30:00.000 76 mm [Hg] Plan of Treatment Planned Activity Planned Date Details Comments Future Scheduled Test RN TO OBSE RVE, ASSESS, EVALUATE, AND DEVELOP AN INDIVIDUALIZED PLAN OF CARE. AGENCY MAY ACCEPT ORDERS FROM CONSULTING PHYSICIANS. RN TO OBSERVE AND ASSESS, HATCHERY MAN/FITTING ROOM SUPERVISOR TO OBSERVE FOR RISK FOR FALLS AND INSTRUCT IN FALL PREVENTION, HOME SAFETY, MEDICATION MANAGEMENT, INFECTION PREVENTION, AND NUTRITION MANAGEMENT. RN/HATCHERY MAN/FITTING ROOM SUPERVISOR NURSE MAY PERFORM O2 SATURATION LEVEL ON ADMISSION AND PRN FOR RN TO ASSESS/HATCHERY MAN TO OBSERVE PATIENT, WITH NOTIFICATION TO THE PHYSICIAN IF SATURATION IS 90% IN THE ABSENCE OF MORE SPECIFIC PARAMETERS FROM THE PHYSICIAN. AGENCY MAY PERFORM A RESUMPTION OF CARE VISIT FOLLOWING ANY HOSPITAL ADMISSION. RN/HATCHERY MAN/FITTING ROOM SUPERVISOR TO MONITOR CO-MORBID CONDITIONS LISTED ON THE PLAN OF CARE AND ANY NEW CONDITIONS THAT PRESENT THEMSELVES DURING THIS EPISODE TO IDENTIFY CHANGES AND INTERVENE TO MINIMIZE COMPLICATIONS. [code = RN TO OBSERVE, ASSESS, EVALUATE, AND DEVELOP AN INDIVIDUALIZED PLAN OF CARE. AGENCY MAY ACCEPT ORDERS FROM CONSULTING PHYSICIANS. RN TO OBSERVE AND ASSESS, HATCHERY MAN/FITTING ROOM SUPERVISOR TO OBSERVE FOR RISK FOR FALLS AND INSTRUCT IN FALL PREVENTION, HOME SAFETY, MEDICATION MANAGEMENT, INFECTION PREVENTION, AND NUTRITION MANAGEMENT. RN/HATCHERY MAN/FITTING ROOM SUPERVISOR NURSE MAY PERFORM O2 SATURATION LEVEL ON ADMISSION AND PRN FOR RN TO ASSESS/HATCHERY MAN TO OBSERVE PATIENT, WITH NOTIFICATION TO THE PHYSICIAN IF SATURATION IS 90% IN THE ABSENCE OF MORE SPECIFIC PARAMETERS FROM THE PHYSICIAN. AGENCY MAY PERFORM A RESUMPTION OF CARE VISIT FOLLOWING ANY HOSPITAL ADMISSION. RN/HATCHERY MAN/FITTING ROOM SUPERVISOR TO MONITOR CO-MORBID CONDITIONS LISTED ON THE PLAN OF CARE AND ANY NEW CONDITIONS THAT PRESENT THEMSELVES DURING THIS EPISODE TO IDENTIFY CHANGES AND INTERVENE TO MINIMIZE COMPLICATIONS.] Future Scheduled Test MEDICATION MANAGEMENT; RN/HATCHERY MAN/FITTING ROOM SUPERVISOR TO REVIEW MEDICATIONS FOR INTERACTIONS, EFFECTIVENESS OF DRUG THERAPY, AND SIGNS/SYMPTOMS OF ADVERSE REACTIONS. MAY INSTRUCT AND REINFORCE MEDICATION TEACHING RELATED TO THE USE OF MEDICATIONS, DOSAGE, FREQUENCY, PURPOSE, SIDE EFFECTS, AND TO REPORT COMPLICATIONS. [code = MEDICATION MANAGEMENT; RN/HATCHERY MAN/FITTING ROOM SUPERVISOR TO REVIEW MEDICATIONS FOR INTERACTIONS, EFFECTIVENESS OF DRUG THERAPY, AND SIGNS/SYMPTOMS OF ADVERSE REACTIONS. MAY INSTRUCT AND REINFORCE MEDICATION TEACHING RELATED TO THE USE OF MEDICATIONS, DOSAGE, FREQUENCY, PURPOSE, SIDE EFFECTS, AND TO REPORT COMPLICATIONS.] Future Scheduled Test ANTITHROMB OTIC MANAGEMENT; RN TO ASSESS AND TEACH, HATCHERY MAN/FITTING ROOM SUPERVISOR TO OBSERVE/TEACH/MONITOR EFFECTIVENESS OF ANTITHROMBOTIC THERAPY. RN/HATCHERY MAN/FITTING ROOM SUPERVISOR TO INSTRUCT ON SIGNS AND SYMPTOMS OF BLEEDING/ADVERSE REACTIONS TO REPORT TO PHYSICIAN. [code = ANTITHROMBOTIC MANAGEMENT; RN TO ASSESS AND TEACH, HATCHERY MAN/FITTING ROOM SUPERVISOR TO OBSERVE/TEACH/MONITOR EFFECTIVENESS OF ANTITHROMBOTIC THERAPY. RN/HATCHERY MAN/FITTING ROOM SUPERVISOR TO INSTRUCT ON SIGNS AND SYMPTOMS OF BLEEDING/ADVERSE REACTIONS TO REPORT TO PHYSICIAN. ] Future Scheduled Test RISK FOR H OSPITALIZATION; RN TO ASSESS/TEACH, FITTING ROOM SUPERVISOR/HATCHERY MAN TO OBSERVE/TEACH PATIENT/CAREGIVER ON RISK FOR HOSPITALIZATION/EMERGENCY ROOM VISITS, TEACH SIGNS AND SYMPTOMS THAT PUT PATIENT AT RISK, WHEN TO NOTIFY NURSE/PHYSICIAN OF COMPLICATIONS/DECLINE, AND WHEN TO CALL 911. [code = RISK FOR HOSPITALIZATION; RN TO ASSESS/TEACH, FITTING ROOM SUPERVISOR/HATCHERY MAN TO OBSERVE/TEACH PATIENT/CAREGIVER ON RISK FOR HOSPITALIZATION/EMERGENCY ROOM VISITS, TEACH SIGNS AND SYMPTOMS THAT PUT PATIENT AT RISK, WHEN TO NOTIFY NURSE/PHYSICIAN OF COMPLICATIONS/DECLINE, AND WHEN TO CALL 911.] Future Scheduled Test CARDIOVASC ULAR SYSTEM; RN TO ASSESS/TEACH, HATCHERY MAN/FITTING ROOM SUPERVISOR TO OBSERVE/TEACH RELATED TO ALTERED CARDIOVASCULAR STATUS TO MINIMIZE COMPLICATIONS AND REDUCE HOSPITALIZATION. [code = CARDIOVASCULAR SYSTEM; RN TO ASSESS/TEACH, HATCHERY MAN/FITTING ROOM SUPERVISOR TO OBSERVE/TEACH RELATED TO ALTERED CARDIOVASCULAR STATUS TO MINIMIZE COMPLICATIONS AND REDUCE HOSPITALIZATION.] Future Scheduled Test HEART FAIL URE; RN TO ASSESS/TEACH, HATCHERY MAN/FITTING ROOM SUPERVISOR TO OBSERVE/TEACH CARDIOPULMONARY SYSTEM TO IDENTIFY SIGNS OF DECOMPENSATION AND INTERVENE TO MINIMIZE THE SEVERITY OF FLUID OVERLOAD. OBSERVE PATIENT ABILITY TO MONITOR AND RECORD DAILY WEIGHTS AND VITAL SIGNS, INCLUDING PULSE AND BLOOD PRESSURE; RECORD PATIENT REPORTED WEIGHT, OR WEIGH PATIENT NEEDED. REPORT INCREASED EDEMA OR WEIGHT GAIN OF >2 LBS IN 1 DAY OR >5 LBS IN 1 WEEK OR 5LBS OR MORE OVER TARGET WEIGHT. MAY MEASURE ABDOMINAL GIRTH IF UNABLE TO WEIGH. SCALES AND BP MONITOR TO BE PROVIDED IF NEEDED. [code = HEART FAILURE; RN TO ASSESS/TEACH, HATCHERY MAN/FITTING ROOM SUPERVISOR TO OBSERVE/TEACH CARDIOPULMONARY SYSTEM TO IDENTIFY SIGNS OF DECOMPENSATION AND INTERVENE TO MINIMIZE THE SEVERITY OF FLUID OVERLOAD. OBSERVE PATIENT ABILITY TO MONITOR AND RECORD DAILY WEIGHTS AND VITAL SIGNS, INCLUDING PULSE AND BLOOD PRESSURE; RECORD PATIENT REPORTED WEIGHT, OR WEIGH PATIENT NEEDED. REPORT INCREASED EDEMA OR WEIGHT GAIN OF >2 LBS IN 1 DAY OR >5 LBS IN 1 WEEK OR 5LBS OR MORE OVER TARGET WEIGHT. MAY MEASURE ABDOMINAL GIRTH IF UNABLE TO WEIGH. SCALES AND BP MONITOR TO BE PROVIDED IF NEEDED.] Future Scheduled Test HYPERTENSI ON MANAGEMENT; RN TO ASSESS AND TEACH, HATCHERY MAN/FITTING ROOM SUPERVISOR TO OBSERVE AND TEACH WARNING SIGNS AND SYMPTOMS TO AVOID HOSPITALIZATION. [code = HYPERTENSION MANAGEMENT; RN TO ASSESS AND TEACH, HATCHERY MAN/FITTING ROOM SUPERVISOR TO OBSERVE AND TEACH WARNING SIGNS AND SYMPTOMS TO AVOID HOSPITALIZATION.] Future Scheduled Test ARRHYTHMIA MANAGEMENT; RN TO ASSESS AND TEACH, HATCHERY MAN/FITTING ROOM SUPERVISOR TO OBSERVE AND TEACH WARNING SIGNS AND SYMPTOMS TO AVOID HOSPITALIZATION. [code = ARRHYTHMIA MANAGEMENT; RN TO ASSESS AND TEACH, HATCHERY MAN/FITTING ROOM SUPERVISOR TO OBSERVE AND TEACH WARNING SIGNS AND SYMPTOMS TO AVOID HOSPITALIZATION.] Future Scheduled Test RESPIRATOR Y SYSTEM MANAGEMENT; RN TO ASSESS AND TEACH, HATCHERY MAN/FITTING ROOM SUPERVISOR TO OBSERVE AND TEACH RELATED TO ALTERED RESPIRATORY STATUS TO MINIMIZE COMPLICATIONS AND REDUCE HOSPITALIZATION. [code = RESPIRATORY SYSTEM MANAGEMENT; RN TO ASSESS AND TEACH, HATCHERY MAN/FITTING ROOM SUPERVISOR TO OBSERVE AND TEACH RELATED TO ALTERED RESPIRATORY STATUS TO MINIMIZE COMPLICATIONS AND REDUCE HOSPITALIZATION.] Future Scheduled Test COPD MANAG EMENT; RN TO ASSESS AND TEACH, HATCHERY MAN/FITTING ROOM SUPERVISOR TO OBSERVE AND TEACH SIGNS/SYMPTOMS OF COPD EXACERBATION AND PROVIDE EARLY INTERVENTIONS TO MINIMIZE RISK OF HOSPITALIZATION. RN/HATCHERY MAN/FITTING ROOM SUPERVISOR TO INSTRUCT ON SELF-CARE MANAGEMENT INCLUDING BREATHING TECHNIQUES, AIRWAY CLEARANCE, AND PROPER USE OF COPD MEDICATIONS. RN TO ASSESS AND TEACH, HATCHERY MAN/FITTING ROOM SUPERVISOR TO OBSERVE AND TEACH PATIENT/CAREGIVER ABILITY TO MONITOR AND RECORD VITAL SIGNS INCLUDING PULSE OXIMETRY AND BLOOD PRESSURE. PULSE OXIMETER AND BP MONITOR TO BE PROVIDED IF NEEDED. [code = COPD MANAGEMENT; RN TO ASSESS AND TEACH, HATCHERY MAN/FITTING ROOM SUPERVISOR TO OBSERVE AND TEACH SIGNS/SYMPTOMS OF COPD EXACERBATION AND PROVIDE EARLY INTERVENTIONS TO MINIMIZE RISK OF HOSPITALIZATION. RN/HATCHERY MAN/FITTING ROOM SUPERVISOR TO INSTRUCT ON SELF-CARE MANAGEMENT INCLUDING BREATHING TECHNIQUES, AIRWAY CLEARANCE, AND PROPER USE OF COPD MEDICATIONS. RN TO ASSESS AND TEACH, HATCHERY MAN/FITTING ROOM SUPERVISOR TO OBSERVE AND TEACH PATIENT/CAREGIVER ABILITY TO MONITOR AND RECORD VITAL SIGNS INCLUDING PULSE OXIMETRY AND BLOOD PRESSURE. PULSE OXIMETER AND BP MONITOR TO BE PROVIDED IF NEEDED.] Future Scheduled Test PNEUMONIA MANAGEMENT; RN TO ASSESS AND TEACH, HATCHERY MAN/FITTING ROOM SUPERVISOR TO OBSERVE AND TEACH SIGNS OF PNEUMONIA EXACERBATION AND PROVIDE EARLY INTERVENTIONS TO MINIMIZE RISK OF HOSPITALIZATION. [code = PNEUMONIA MANAGEMENT; RN TO ASSESS AND TEACH, HATCHERY MAN/FITTING ROOM SUPERVISOR TO OBSERVE AND TEACH SIGNS OF PNEUMONIA EXACERBATION AND PROVIDE EARLY INTERVENTIONS TO MINIMIZE RISK OF HOSPITALIZATION.] Future Scheduled Test PAIN MANAG EMENT; RN TO ASSESS AND TEACH, FITTING ROOM SUPERVISOR/HATCHERY MAN TO OBSERVE AND TEACH AND PROVIDE EDUCATION ON PAIN MANAGEMENT TECHNIQUES. [code = PAIN MANAGEMENT; RN TO ASSESS AND TEACH, FITTING ROOM SUPERVISOR/HATCHERY MAN TO OBSERVE AND TEACH AND PROVIDE EDUCATION ON PAIN MANAGEMENT TECHNIQUES.] Future Scheduled Test GASTROINTE STINAL MANAGEMENT; RN TO ASSESS AND TEACH, FITTING ROOM SUPERVISOR/HATCHERY MAN TO OBSERVE AND TEACH RELATED TO ALTERED GASTROINTESTINAL STATUS TO MINIMIZE COMPLICATIONS AND REDUCE HOSPITALIZATION. [code = GASTROINTESTINAL MANAGEMENT; RN TO ASSESS AND TEACH, FITTING ROOM SUPERVISOR/HATCHERY MAN TO OBSERVE AND TEACH RELATED TO ALTERED GASTROINTESTINAL STATUS TO MINIMIZE COMPLICATIONS AND REDUCE HOSPITALIZATION.] Future Scheduled Test MALNUTRITI ON MANAGEMENT; RN TO ASSESS AND TEACH, FITTING ROOM SUPERVISOR/HATCHERY MAN TO OBSERVE AND TEACH AND INSTRUCT PATIENT / CAREGIVER ON INTERVENTIONS TO IMPROVE NUTRITIONAL INTAKE AND PATIENT WELLBEING. [code = MALNUTRITION MANAGEMENT; RN TO ASSESS AND TEACH, FITTING ROOM SUPERVISOR/HATCHERY MAN TO OBSERVE AND TEACH AND INSTRUCT PATIENT / CAREGIVER ON INTERVENTIONS TO IMPROVE NUTRITIONAL INTAKE AND PATIENT WELLBEING.] Future Scheduled Test CANCER MAN AGEMENT; RN TO ASSESS AND TEACH, FITTING ROOM SUPERVISOR/HATCHERY MAN TO OBSERVE AND TEACH AND PROVIDE EDUCATION ON CANCER. [code = CANCER MANAGEMENT; RN TO ASSESS AND TEACH, FITTING ROOM SUPERVISOR/HATCHERY MAN TO OBSERVE AND TEACH AND PROVIDE EDUCATION ON CANCER.] Future Scheduled Test FALL REDUC TION MANAGEMENT; RN TO ASSESS AND OBSERVE, HATCHERY MAN/FITTING ROOM SUPERVISOR TO OBSERVE FALL RISK FACTORS AND EDUCATE PATIENT/CAREGIVER ON STRATEGIES TO MINIMIZE THE RISK OF FALLING. [code = FALL REDUCTION MANAGEMENT; RN TO ASSESS AND OBSERVE, HATCHERY MAN/FITTING ROOM SUPERVISOR TO OBSERVE FALL RISK FACTORS AND EDUCATE PATIENT/CAREGIVER ON STRATEGIES TO MINIMIZE THE RISK OF FALLING.] Future Scheduled Test PHYSICAL T HERAPIST TO EVALUATE FOR STRENGTHENING [code = PHYSICAL THERAPIST TO EVALUATE FOR STRENGTHENING ] Future Scheduled Test OCCUPATION AL THERAPIST TO EVALUATE FOR STRENGTHENING [code = OCCUPATIONAL THERAPIST TO EVALUATE FOR STRENGTHENING ] Future Scheduled Test PHYSICAL T HERAPY EVALUATION PERFORMED. NO ADDITIONAL VISITS REQUIRED. PROVIDED SKILLED INTERVENTION INCLUDING THERAPEUTIC EXERCISES AND PATIENT EDUCATION. [code = PHYSICAL THERAPY EVALUATION PERFORMED. NO ADDITIONAL VISITS REQUIRED. PROVIDED SKILLED INTERVENTION INCLUDING THERAPEUTIC EXERCISES AND PATIENT EDUCATION. ] Goal Patient Goal - RETURN TO [facility] Goal Provider Goal - A PLAN OF CARE WILL BE ESTABLISHED THAT MEETS THE PATIENTS NEEDS. PATIENT WILL DEMONSTRATE OXYGEN SATURATION WITHIN NORMAL LIMITS OR PATIENTS OPTIMAL LEVEL ESTABLISHED BY THE PHYSICIAN THROUGHOUT CARE. CHANGES TO CO-MORBID CONDITIONS AND ANY NEW CONDITIONS WILL BE IDENTIFIED AND REPORTED TO THE PHYSICIAN. Goal Provider Goal - PATIENT/CAREGIVER TO VERBALIZE, AND CONSISTENTLY DEMONSTRATE EFFECTIVE, SAFE MANAGEMENT OF MEDICATION INCLUDING KNOWLEDGE OF EFFECTIVENESS, POTENTIAL SIDE EFFECTS AND DRUG REACTIONS AND WHEN TO CONTACT THE APPROPRIATE CARE PROVIDER. PATIENT/CAREGIVER WILL BE ABLE TO VERBALIZE UNDERSTANDING OF MEDICATION REGIMEN AND ACCURATELY TAKE MEDICATIONS PRESCRIBED WITHOUT ADVERSE EFFECTS BY END OF CERT PERIOD Goal Provider Goal - PATIENT / CAREGIVER WILL PROMPTLY REPORT SIGNS AND SYMPTOMS OF BLEEDING OR ADVERSE REACTIONS TO THE PHYSICIAN. PATIENT/CAREGIVER WILL VERBALIZE UNDERSTANDING OF ANTITHROMBOTIC THERAPY MANAGEMENT BY END OF EPISODE. Goal Provider Goal - PATIENT/CAREGIVER WILL VERBALIZE UNDERSTANDING OF SIGNS AND SYMPTOMS THAT PUT THE PATIENT AT RISK FOR HOSPITALIZATION /EMERGENCY ROOM VISITS, WHEN TO NOTIFY NURSE/PHYSICIAN OF COMPLICATIONS/DECLINE AND WHEN TO CALL 911. Goal Provider Goal - PATIENT / CAREGIVER WILL VERBALIZE/DEMONSTRATE UNDERSTANDING OF MEASURES TO MANAGE ALTERED CARDIOVASCULAR STATUS BY ENDOFCERTPERIOD. Goal Provider Goal - PATIENT / CAREGIVER WILL VERBALIZE/DEMONSTRATE AN ABILITY TO ADHERE TO SELF-MANAGEMENT OF HF TO MINIMIZE COMPLICATIONS AND AVOID HOSPITALIZATION BY END OF EPISODE. Goal Provider Goal - PATIENT / CAREGIVER WILL VERBALIZE/DEMONSTRATE AN ABILITY TO ADHERE TO SELF-MANAGEMENT OF HTN TO MINIMIZE COMPLICATIONS AND AVOID HOSPITALIZATION BY END OF EPISODE. Goal Provider Goal - PATIENT / CAREGIVER WILL VERBALIZE/DEMONSTRATE AN ABILITY TO ADHERE TO SELF-MANAGEMENT OF HEART ARRHYTHMIA TO MINIMIZE COMPLICATIONS AND AVOID HOSPITALIZATION BY END OF EPISODE. Goal Provider Goal - PATIENT / CAREGIVER WILL VERBALIZE/DEMONSTRATE UNDERSTANDING OF MEASURES TO MANAGE ALTERED RESPIRATORY STATUS BY END OF EPISODE. Goal Provider Goal - PATIENT / CAREGIVER WILL VERBALIZE/DEMONSTRATE AN ABILITY TO ADHERE TO SELF-MANAGEMENT OF COPD TO MINIMIZE COMPLICATIONS AND AVOID HOSPITALIZATION BY END OF EPISODE. Goal Provider Goal - PATIENT / CAREGIVER WILL VERBALIZE/DEMONSTRATE AN ABILITY TO ADHERE TO PNEUMONIA SELF-MANAGEMENT TO MINIMIZE COMPLICATIONS AND AVOID HOSPITALIZATION BY END OF EPISODE. Goal Provider Goal - PATIENT / CAREGIVER WILL VERBALIZE / DEMONSTRATE UNDERSTANDING OF PAIN CONTROL MEASURES BY END OF CERT PERIOD Goal Provider Goal - PATIENT / CAREGIVER WILL VERBALIZE/DEMONSTRATE UNDERSTANDING OF MEASURES TO MANAGE ALTERED GASTROINTESTINAL STATUS BY END OF EPISODE. Goal Provider Goal - PATIENT / CAREGIVER WILL VERBALIZE/DEMONSTRATE APPROPRIATE METHODS TO IMPROVE NUTRITIONAL STATUS BY END OF EPISODE. Goal Provider Goal - PATIENT / CAREGIVER WILL VERBALIZE/DEMONSTRATE UNDERSTANDING OF MEASURES TO MINIMIZE COMPLICATIONS AND REDUCE HOSPITALIZATION RELATED TO CANCER BY END OF EPISODE. Goal Provider Goal - PATIENT/CAREGIVER WILL VERBALIZE/DEMONSTRATE UNDERSTANDING OF FALL RISK FACTORS AND IMPLEMENT STRATEGIES TO MINIMIZE FALL RISK. PATIENT/CAREGIVER WILL VERBALIZE/DEMONSTRATE AN ABILITY TO ADHERE TO FALL REDUCTION SELF-MANAGEMENT AND LIFE-STYLE CHANGES BY END OF CERT PERIOD Goal Provider Goal - Goal Provider Goal - Goal Provider Goal - PATIENT / CAREGIVER WITHIN 1 VISIT WILL BE ABLE TO VERBALIZE / DEMONSTRATE UNDERSTANDING OF THERAPEUTIC EXERCISES, HEP, AND PATIENT EDUCATION ON FALL PREVENTION AND PREVENTION OF REHOSPITALIZATION. Encounters Start Date/Time End Date/Time Encounter Type Admission Type Attending [facility] Care Department Encounter ID Discharge Date Discharge Status Discharge Condition Discharge Reason Percent Goals Met 2024-11-01 00:00:00 2024-12-30 00:00:00 Outpatient NEW ADMISSION REMEDIOS BORDEN [facility] [id number]
[2024-11-12 12:21] LABS: Alveolar/Arterial O2 Gradient 113.6 mmHg; Fractional Inspired Oxygen 32 %; HCO3 ABG 19.2 mEq/l (22.0-26.0); Oxygen Content ABG 8.7 %vol (16.0-22.0); Oxygen Saturation ABG 96.1 % (95.0-100.0); PCO2 ABG 30.4 mmHg (35.0-45.0); PO2 ABG 79.0 mmHg (80.0-100.0); PO2 FiO2 Ratio Arterial Blood 2.47 %
[2024-11-12 12:22] LABS: Liters per Minute 3.0 LPM; Modified Allen's Test Pass; Site Drawn LEFT RADIAL
[2024-11-12 12:25] LABS: Hematocrit 22.3 % (37.0-47.0); Immature Granulocyte Percent A 0.8 % (0-0.5); Lymphocytes Absolute Auto 1.33 K/mm3 (0.9-3.2); Mean Corpuscular HGB Conc 30.5 g/dl (32-36); Mean Corpuscular Hemoglobin 28.1 pg (26-34); Mean Corpuscular Volume 92.1 fl (80-100); Nucleated Red Blood Cells Absolute Auto 0.120 K/mm3 (0.0-0.012); Nucleated Red Blood Cells Perc 0.7 % (0.0-0.2); Platelet Count Result 175 k/mm3 (150-375); Red Blood Count 2.42 M/mm3 (4.2-5.4); White Blood Count 16.2 K/mm3 (4.5-10.0)
[2024-11-12] MEDS: ALBUTEROL SULFATE NEB 2.5 MG/3 ML INH 5 MG INHALATION (12:28)
[2024-11-12 12:36] LABS: INR 2.6; Prothrombin Time 27.0 Seconds (11.1-14.7)
[2024-11-12 12:37] LABS: Partial Thromboplastin Time 33.3 Seconds (22.3-36.8)
--- NOTE | 2024-11-12 12:43 | ED_ITS ---
HPI - General Adult General Chief complaint: Shortness of Breath/Dyspnea Stated complaint: SOB Time Seen by Provider: 11/12/24 11:59 History of Present Illness HPI narrative: 89-year-old female presented to the emergency department for evaluation for worsening hemoptysis. Patient does have known lung cancer and is on chemotherapy. Patient gets a dose of Keytruda every 3 weeks and just had her last dose on . Family states the patient is at home but does follow-up with [facility], patient had onset of worsening shortness of breath and hemoptysis this morning, she was evaluated by home health and they recommended that she be evaluated. Patient did have an oxygen requirement upon arrival to the emergency department. Patient does feel improved on oxygen. Patient denies any pain or complaint at this time. Patient is present with both her daughters. Related Data Home Medications ?Medication ?Instructions ?Recorded ?Confirmed ?Last Taken ?Type exemestane 25 mg tablet 25 mg PO DAILY cough 10/02/24 10/02/24 10/01/24 History guaifenesin 600 mg tablet, 600 mg PO ONCE cough 10/02/24 10/02/24 10/01/24 History extended release 12 hr (Mucinex) Allergies Allergy/AdvReac Type Severity Reaction Status Date / Time No Known Allergies Allergy Verified 10/02/24 14:02 Review of Systems 2 Review of Systems: All systems reviewed & are unremarkable except as noted in HPI and below PMFSH Past Medical History Medical History Lung cancer (07/2024) Primary adenocarcinoma of the lung Fracture of radius, distal, right, closed COPD (chronic obstructive pulmonary disease) case management patient Kidney stones Breast cancer in female left, 2004. right, 2016. Hypertension Surgical History Surgical History History of total right hip arthroplasty 11/04 History of total left hip replacement 06/04 History of hysterectomy 1981 History of back surgery lumbar decompression 07/29 S/P lumpectomy, left breast 2002 History of hip replacement S/P lumpectomy, right breast 2014 Family History Family History Mother Carcinoma of colon Father Acute myocardial infarction Social History Social History Smoking packs per day: 0.5 Smoking cigarettes per day: 10.0 Years smoked: 15 Smoking pack-years: 7.50 Smoking status: Former smoker Tobacco type: cigarettes Smoking end date: 01/23/24 Alcohol intake: never Substance use: never Do You Feel Safe in your Home?: Yes Lack of Transportation: No Lack of Food: Never True Current Housing: I Have Housing Concerned About Future Housing: No Difficulty Paying Gas/Electric Bills: No Difficulty Paying for Meds: No Currently Unemployed: No Education: High School Diploma/GED Difficulty w/ Childcare or Family Care: No Gender identity (if verbalized by the patient): Female Spiritual care concerns: No Exam 2 Narrative: APPEARANCE: Well appearing, no pain, no distress, well-nourished. HEAD: normocephalic, atraumatic. EYES: PERRLA/EOMI, conjunctivae clear. NOSE: Normal no drainage EARS:TMS clear with good light reflex. THROAT: Pharynx clear, no exudate. NECK: Supple. No adenopathy, no masses. RESPIRATORY: Airway patent, respirations nonlabored. Clear to auscultation bilaterally, no rales, rhonchi, wheezing. CARDIOVASCULAR: Regular rate and rhythm without murmurs rubs or gallops. ABDOMINAL: Soft, nontender, nondistended, normal bowel sounds MUSCULOSKELETAL: Moves all extremities. Strength/ROM intact, No edema, No calf tenderness. NEURO: Alert. Cranial nerves II through XII intact. Good gait. Good coordination SKIN: Warm, dry. Normal Color Course Vital Signs Vital signs: Vital Signs Temperature 98.5 F 11/12/24 11:31 Pulse Rate 119 H 11/12/24 11:31 Respiratory Rate 29 H 11/12/24 11:31 Blood Pressure 124/111 H 11/12/24 11:31 Pulse Oximetry 99 11/12/24 11:31 Oxygen Delivery Nasal Cannula 11/12/24 11:31 Oxygen Flow Rate 2 11/12/24 11:31 Temperature 99.1 F 11/12/24 17:49 Pulse Rate 82 11/12/24 17:49 Respiratory Rate 24 H 11/12/24 17:49 Blood Pressure 114/73 11/12/24 17:49 Pulse Oximetry 100 11/12/24 17:49 Oxygen Delivery Nasal Cannula 11/12/24 12:02 Oxygen Flow Rate 2 11/12/24 12:02 Medical Decision Making MDM Narrative Medical decision making narrative: 89-year-old female history of lung cancer being treated at [facility]. Presented emergency department for evaluation for worsening shortness of breath. Patient is currently on Keytruda. Patient has had no gross hemoptysis in the emergency department. Patient does a increased O2 requirement and does feel short of breath. Patient does have hemoglobin of 6.8 which is lower than her typical baseline anemia. Patient does have a white blood cell count of 16.2. No significant abnormalities on her ABG or on the CMP. CTA chest was ordered to evaluate for pulmonary embolism, CT did show worsening metastatic disease of the left long with endobronchial obliteration of the left lower bronchus and this is most likely the cause of the patient's shortness of breath and hemoptysis. Case was discussed with hospitalist and they felt that the patient would be better served at [facility] since that is where she receives all of her care. Patient was initially preferring to stay here at [place] but after had this discussion with her she was willing to be transferred. I did discuss the case with the hospitalist at [facility] and patient was accepted for transfer. Differential Diagnosis Differential Diagnosis: Pneumonia, pneumothorax, pulmonary embolism, hemoptysis Vital Signs Vital Signs: Vital Signs Temperature 98.5 F 11/12/24 11:31 Pulse Rate 119 H 11/12/24 11:31 Respiratory Rate 29 H 11/12/24 11:31 Blood Pressure 124/111 H 11/12/24 11:31 Pulse Oximetry 99 11/12/24 11:31 Oxygen Delivery Nasal Cannula 11/12/24 11:31 Oxygen Flow Rate 2 11/12/24 11:31 Temperature 99.1 F 11/12/24 17:49 Pulse Rate 82 11/12/24 17:49 Respiratory Rate 24 H 11/12/24 17:49 Blood Pressure 114/73 11/12/24 17:49 Pulse Oximetry 100 11/12/24 17:49 Oxygen Delivery Nasal Cannula 11/12/24 12:02 Oxygen Flow Rate 2 11/12/24 12:02 Lab Data Lab results reviewed: Yes I reviewed the patient's lab results. 11/12/24 12:21 11/12/24 12:20 Labs: Lab Results 11/12/24 11/12/24 11/12/24 Range/Units 12:20 12:21 12:55 WBC 16.2 H (4.5-10.0) K/mm3 RBC 2.42 L (4.2-5.4) M/mm3 Hgb 6.8 L* (12.0-15.0) g/dL Hct 22.3 L (37.0-47.0) % MCV 92.1 (80-100) fl MCH 28.1 (26-34) pg MCHC 30.5 L (32-36) g/dl RDW 22.5 H (11.5-14.5) % Plt Count 175 (150-375) k/mm3 MPV 11.1 H (7.4-10.4) fl Immature Gran % (Auto) 0.8 H (0-0.5) % Neut % (Auto) 80.7 H (45.5-73.1) % Lymph % (Auto) 8.2 L (18.3-44.2) % [place] % (Auto) 5.7 (2.6-8.5) % Eos % (Auto) 4.4 (0-4.4) % Baso % (Auto) 0.2 (0.2-1.2) % Lymph # (Auto) 1.33 (0.9-3.2) K/mm3 [place] # (Auto) 0.9 H (0.1-0.6) K/mm3 Eos # (Auto) 0.7 H (0-0.3) K/mm3 Baso # (Auto) 0.0 (0.0-0.1) K/mm3 Abs Immat Gran (auto) 0.13 H (0.00-0.031) K/mm3 Absolute Neuts (auto) 13.1 H (1.3-6.7) K/mm3 Absolute Nucleated RBC 0.120 H (0.0-0.012) K/mm3 Band Neutrophils % Not Reportable Nucleated RBC % 0.7 H (0.0-0.2) % Platelet Estimate Adequate (Adequate) Large Platelets Present Giant Platelets Present Hypochromasia 1+ Poikilocytosis 1+ Anisocytosis 2+ Schistocytes Rare PT 27.0 H (11.1-14.7) Seconds INR 2.6 APTT 33.3 (22.3-36.8) Seconds Sodium 141 (137-145) mmol/L Potassium 3.7 (3.4-5.0) mmol/L Chloride 112 H (98-107) mmol/L Carbon Dioxide 20 L (22-30) mmol/L Anion Gap 9 (4-12) mmol/L BUN 21 H (7-17) mg/dL Creatinine 1.42 H (0.7-1.0) mg/dL Estim Creat Clear Calc Not Reportable Estimated GFR 35 L (59 - ) Glucose 97 (65-110) mg/dL Calcium 9.1 (8.4-10.2) mg/dL Total Bilirubin 1.1 (0.2-1.3) mg/dL AST 30 (14-36) U/L ALT 17 (6-35) U/L Alkaline Phosphatase 60 (38-126) U/L Total Protein 6.4 (6.3-8.2) g/dL Albumin 3.3 L (3.5-5.1) g/dL Blood Type O Positive Antibody Screen Negative Crossmatch See Detail ABG Data ABG results: 11/12/24 12:18 Puncture Site Left radial ABG pH 7.418 ABG pCO2 30.4 L ABG pO2 79.0 L ABG PO2/FiO2 Ratio 2.47 ABG HCO3 19.2 L ABG O2 Saturation 96.1 ABG O2 Content 8.7 L ABG Base Excess -4.8 A-a Gradient 113.6 Oxyhemoglobin 92.5 Total Hemoglobin 6.6 L* O2 Delivery Device Nasal cannula O2 Liters/Min 3.0 FiO2 32 Imaging Data Radiologist's impression: Impressions Chest CTA 11/12/24 13:55 IMPRESSION: No evidence of pulmonary embolism in main and lobar pulmonary arteries. Worsening metastatic disease in the left lung with endobronchial obliteration of left lower bronchus, as detailed above. This most likely is the cause of patient's shortness of breath and hemoptysis. Diffuse periaortic lymphadenopathy around the partially visualized abdominal aorta. Diffuse airspace disease in the left lung. Discharge Plan Discharge Clinical Impression: Lung cancer, Hemoptysis, Anemia Patient Disposition: Acute Care Hospital Condition: Serious Patient Language: Latvian Prescriptions: No Action exemestane 25 mg tablet 25 mg PO DAILY guaifenesin [Mucinex] 600 mg tablet extended release 12hr 600 mg PO ONCE NM VIT D3 (ALEJO) 2000IU TAB See Rx Instructions .ROUTE .COMPLEX Qty: 90 2RF Dose Instruction: Take 1 tablet by mouth once daily Rx Instructions: Take 1 tablet by mouth once daily benzonatate 200 mg capsule 200 mg PO TID PRN (Reason: cough) Qty: 20 1RF albuterol sulfate 90 mcg/actuation HFA aerosol inhaler See Rx Instructions .ROUTE .COMPLEX Qty: 9 0RF Dose Instruction: INHALE 2 PUFFS BY MOUTH TWICE DAILY NEEDED FOR SHORTNESS OF BREATH Rx Instructions: INHALE 2 PUFFS BY MOUTH TWICE DAILY NEEDED FOR SHORTNESS OF BREATH alendronate 70 mg tablet 70 mg PO WEEKLY Qty: 13 3RF hydrochlorothiazide 25 mg tablet See Rx Instructions .ROUTE .COMPLEX Qty: 90 0RF Dose Instruction: Take 1 tablet by mouth once daily Rx Instructions: Take 1 tablet by mouth once daily hydrocodone-acetaminophen 7.5-325 mg tablet 1 tablet PO QID PRN (Reason: Pain) Qty: 120 0RF losartan 100 mg tablet See Rx Instructions .ROUTE .COMPLEX Qty: 90 3RF Dose Instruction: Take 1 tablet by mouth once daily Rx Instructions: Take 1 tablet by mouth once daily Follow-up/Referrals: Raymond Carter MD [Primary Care Provider] -
[2024-11-12 12:44] LABS: Hemoglobin 6.8 g/dL (12.0-15.0)
[2024-11-12 12:46] LABS: Anisocytosis 2+; Hypochromasia 1+
[2024-11-12 12:47] LABS: Giant Platelets Present; Schistocytes Rare
[2024-11-12 12:48] LABS: Poikilocytosis 1+
[2024-11-12 12:49] LABS: Alanine Aminotransferase 17 U/L (6-35); Albumin Level 3.3 g/dL (3.5-5.1); Alkaline Phosphatase 60 U/L (38-126); Anion Gap 9 mmol/L (4-12); Aspartate Amino Transferase 30 U/L (14-36); Bilirubin,Total 1.1 mg/dL (0.2-1.3); Blood Urea Nitrogen 21 mg/dL (7-17); Calcium 9.1 mg/dL (8.4-10.2); Carbon Dioxide 20 mmol/L (22-30); Chloride 112 mmol/L (98-107); Estimated Glomerular Filt Rate 35; Glucose 97 mg/dL (65-110); Potassium 3.7 mmol/L (3.4-5.0); Sodium 141 mmol/L (137-145); Total Protein 6.4 g/dL (6.3-8.2)
[2024-11-12] MEDS: HYDROcodone/acetaminophen (*CRX) 5-325 MG TABLET 1 TAB PO ×2 (13:49→23:25)
[2024-11-12] MEDS: SODIUM CHLORIDE 0.9% IV 250 ML 30 ML IV CONT (14:19)
[2024-11-12] MEDS: TUBING, BLOOD PLUM PUMP TUBING 1 EACH XX (14:21)
--- NOTE | 2024-11-12 18:42 | PC.NURSE ---
Family not happy that patient being sent to [facility] instead of [facility]-explained that [facility] bedding reporting no beds at [place] so shunting to [place]-family talked to extensively by this RN and Dr Guerrier about bed availability
--- NOTE | 2024-11-12 22:07 | PC.NURSE ---
Update to [facility] bed assignment. No beds available at this time and possibly not til morning. Family and patient made aware that hospital bed was ordered and that we will move her off stretcher for comfort as soon as it arrives
--- NOTE | 2024-11-12 23:28 | PC.NURSE ---
Report to Kay MARTINEZ
[2024-11-13] VITALS (23 sets, daily range): BP systolic 115–142; BP diastolic 72–104; PULSE 83–119; RESP 20–33; O2SAT 96–100
--- NOTE | 2024-11-13 08:19 | PC.NURSE ---
pt stating, I cant breath EDP to bedside breathing treatment ordered
[2024-11-13] MEDS: ALBUTEROL SULFATE NEB 2.5 MG/3 ML INH INHALATION (08:32)
[2024-11-13] MEDS: IPRATROPIUM BR 0.02% INH SOLN 0.5 MG/2.5 ML VIAL INHALATION (08:32)
--- NOTE | 2024-11-13 09:22 | PC.NURSE ---
Gave update to transfer center line - still awaiting bed assignment at [facility].
--- NOTE | 2024-11-13 13:09 | ECG_ITS ---
Test Date: 2024-11-13 13:15:32 Measurements Intervals [place] Rate: 106 P: 31 MS: 117 QRS: -17 QRSD: 89 T: 60 QT: 323 QTc: 429 Interpretive Statements SINUS TACHYCARDIA WITH SHORT MS INTERVAL LOW QRS VOLTAGE IN PRECORDIAL LEADS [QRS DEFLECTION < 1.0 mV IN CHEST LEADS] PATTERN CONSISTENT WITH PULMONARY DISEASE NONSPECIFIC T-WAVE ABNORMALITY ABNORMAL ECG Electronically Signed On 11-13-2024 14:10:58 CDT by Jonny Agosto M.D.
[2024-11-13] MEDS: MORPHINE SULFATE (*CRX) 4 MG/ML INJ IV PUSH (13:29)
[2024-11-13] MEDS: ONDANSETRON INJ 4 MG/2 ML VIAL IV PUSH (13:29)
--- NOTE | 2024-11-13 13:34 | PC.NURSE ---
Patient having chest pain, RN ordered EKG and MD reviewed. MD ordered pain meds and zofran. Family upset about transfer and confused on why patient is not going to [facility]. RN spoked with clinical unit coordinator to talk with patient and family about plan.
--- NOTE | 2024-11-13 17:15 | PC.NURSE ---
[facility] transfer center called by RN to inform about patient transfer now.
== END 2024-11-13 17:16 | disposition short-term general hospital (02) ==
PROVIDERS: Emergency Provider Emergency Medicine; PCP Family Medicine Adolescent Medicine
DX: C34.92 Malignant neoplasm of unspecified part of left bronchus or lung (principal); R04.2 Hemoptysis; D64.9 Anemia, unspecified; I10 Essential (primary) hypertension; J44.9 Chronic obstructive pulmonary disease, unspecified; Z87.442 Personal history of urinary calculi; Z85.3 Personal history of malignant neoplasm of breast; Z87.891 Personal history of nicotine dependence; Z96.643 Presence of artificial hip joint, bilateral; Z90.710 Acquired absence of both cervix and uterus; Z79.60 Long term (current) use of unspecified immunomodulators and immunosuppressants
CPT/HCPCS: 36415; 36430; 36600; 71275; 80053; 82805; 85018; 85025; 85610; 85730; 86850; 86900; 86901; 86920; 93005; 94640; 96361; 96374; 96375; 99285; A9270; J2270; J2405; J7050; P9016; Q9967